=== PATIENT | female | born 1975 | race Asian ===

== ENCOUNTER 2021-04-27 17:00 | Inpatient (IN) | payer OTHER ==
[~2021-04-27] VITALS: Ht 154.9 cm; Wt 113.0 kg
--- NOTE | 2021-04-27 18:10 | RAD ---
Exam: Chest one view INDICATION: Short of air TECHNIQUE: Frontal view of the chest Comparisons: None FINDINGS: The cardiomediastinal silhouette is mildly enlarged. Pulmonary vessels are obscured. Extensive patchy bilateral airspace disease. No pleural effusion. IMPRESSION: Extensive bilateral airspace disease may relate to edema or atypical infectious process. Electronically signed by: Wendy Russo MD (04/27/2021 6:08 PM) [facility]
[2021-04-27] MEDS ORDERED: PIPERACILLIN/TAZOBACTAM 3.375 GM in IV NORMAL SALINE 50ML 50 ML IV ONE (19:00)
[2021-04-27] MEDS ORDERED: DEXAMETHASONE SOD PHOS 20 MG/5 ML VIAL. IV ONE (19:00)
[2021-04-27] MEDS ORDERED: VANCOMYCIN PER PHARMACY MC PRN (19:00)
[2021-04-27] MEDS ORDERED: DOXYCYCLINE HYCLATE 100 MG in IV DEXTROSE 5% 100ML 100 ML IV ONE (19:15)
[2021-04-27] MEDS ORDERED: cefTRIAXone IV Push 1 GM VIAL. IVP ONE (19:15)
[2021-04-27 19:29] LABS: BASO % 1 % (0-3); EOS % 0 % (0-3); HEMATOCRIT 44.4 % (36.0-47.0); HEMOGLOBIN 14.5 g/dL (12.0-15.5); LYMPH # 1.4 x10^3/uL (1.0-4.8); LYMPH % 16 % (24-48); MEAN CORPUSCULAR HEMOGLOBIN 20 pg (25-35); MEAN CORPUSCULAR HGB CONC 33 g/dL (31-37); MEAN CORPUSCULAR VOLUME 60 fL (79-100); MONO # 0.5 x10^3/uL (0.0-1.1); MONO % 6 % (0-9); NEUT # 6.8 x10^3/uL (1.8-7.7); NEUT % 77 % (31-73); PLATELET COUNT 271 x10^3/uL (140-400); RED BLOOD COUNT 7.42 x10^6/uL (3.50-5.40); RED CELL DISTRIBUTION WIDTH 17.6 % (11.5-14.5); WHITE BLOOD COUNT 8.8 x10^3/uL (4.0-11.0)
--- NOTE | 2021-04-27 19:37 | PHYS DOC ---
Past Medical History Past Medical History: Hypertension Past Surgical History: No Surgical History General Adult EDM: Chief Complaint: SHORTNESS OF BREATH HPI: HPI: Patient is a 45 year old female with history of hypertension who presents to the ED today complaining of shortness of breath, dizziness and feeling like she is going to pass out, symptoms began 2 weeks ago after she got stung by bees. Patient reports being vaccinated against COVID-19. Review of Systems: Review of Systems: Constitutional: Denies fever or chills. [] Eyes: Denies change in visual acuity. [] HENT: Denies nasal congestion or sore throat. [] Respiratory: Reports shortness of breath, denies coughing Cardiovascular: Denies chest pain or edema. [] GI: Denies abdominal pain, nausea, vomiting, bloody stools or diarrhea. [] : Denies dysuria. [] Musculoskeletal: Denies back pain or joint pain. [] Integument: Denies rash. [] Psychiatric: Denies depression or anxiety. [] Heart Score: C/O Chest Pain: N/A Risk Factors: Risk Factors: DM, Current or recent (<one month) smoker, HTN, HLP, family history of CAD, obesity. Risk Scores: Score 0 - 3: 2.5% MACE over next 6 weeks - Discharge Home Score 4 - 6: 20.3% MACE over next 6 weeks - Admit for Clinical Observation Score 7 - 10: 72.7% MACE over next 6 weeks - Early Invasive Strategies Current Medications: Current Medications Medications (Trade) Dose Ordered Sig/Rin Start Time Stop Time Status Last Admin Dose Admin Ceftriaxone Sodium (Rocephin) 1 gm 1X ONCE 04/27/21 19:15 04/27/21 19:16 DC Dexamethasone Sodium Phosphate (Decadron) 10 mg 1X ONCE 04/27/21 19:00 04/27/21 19:10 DC Doxycycline Hyclate 100 mg/ Dextrose 100 ml @ 50 mls/hr 1X ONCE 04/27/21 19:15 04/27/21 21:14 Piperacillin Sod/ Tazobactam Sod 3.375 gm/Sodium Chloride 50 ml @ 100 mls/hr 1X ONCE 04/27/21 19:00 04/27/21 19:29 UNV Vancomycin HCl (Vanco Per Pharmacy) 1 each PRN DAILY PRN 04/27/21 19:00 UNV Allergies: Allergies: Allergies Coded Allergies Type Severity Reaction Last Updated Verified No Known Drug Allergies 04/27/21 No Physical Exam: PE: Constitutional: Well developed, well nourished, no acute distress, non-toxic appearance. [] HENT: Normocephalic, atraumatic, bilateral external ears normal, oropharynx moist, no oral exudates, nose normal. [] Eyes: PERRLA, EOMI, conjunctiva normal, no discharge. [] Neck: Normal range of motion, no tenderness, supple, no stridor. [] Cardiovascular:Heart rate regular rhythm Lungs & Thorax: Coarse breath sounds posteriorly Abdomen: Bowel sounds normal, soft, no tenderness, no masses, no pulsatile masses. [] Skin: Warm, dry, no erythema, no rash. [] Back: No tenderness, no CVA tenderness. [] Extremities: No tenderness, no cyanosis, no clubbing, ROM intact, no edema. [] Neurologic: Alert and oriented X 3, normal motor function, normal sensory function, no focal deficits noted. Cranial nerves II through XII intact Psychologic: Affect normal, judgement normal, mood normal. [] Current Patient Data: Labs: Laboratory Tests Test 04/27/21 19:18 White Blood Count 8.8 x10^3/uL (4.0-11.0) Red Blood Count 7.42 x10^6/uL (3.50-5.40) H Hemoglobin 14.5 g/dL (12.0-15.5) Hematocrit 44.4 % (36.0-47.0) Mean Corpuscular Volume 60 fL (79-100) L Mean Corpuscular Hemoglobin 20 pg (25-35) L Mean Corpuscular Hemoglobin Concent 33 g/dL (31-37) Red Cell Distribution Width 17.6 % (11.5-14.5) H Platelet Count 271 x10^3/uL (140-400) Neutrophils (%) (Auto) 77 % (31-73) H Lymphocytes (%) (Auto) 16 % (24-48) L Monocytes (%) (Auto) 6 % (0-9) Eosinophils (%) (Auto) 0 % (0-3) Basophils (%) (Auto) 1 % (0-3) Neutrophils # (Auto) 6.8 x10^3/uL (1.8-7.7) Lymphocytes # (Auto) 1.4 x10^3/uL (1.0-4.8) Monocytes # (Auto) 0.5 x10^3/uL (0.0-1.1) Eosinophils # (Auto) 0.0 x10^3/uL (0.0-0.7) Basophils # (Auto) 0.0 x10^3/uL (0.0-0.2) Platelet Estimate Pending Laboratory Tests 04/27/21 19:18 Vital Signs: Vital Signs Date Time Temp Pulse Resp B/P (MAP) Pulse Ox O2 Delivery O2 Flow Rate FiO2 04/27/21 18:39 92 22 142/65 (90) Room Air 04/27/21 17:24 98.5 98.5 EKG: EKG: [] Radiology/Procedures: Radiology/Procedures: []PROCEDURE: CHEST AP ONLY Exam: Chest one view INDICATION: Short of air TECHNIQUE: Frontal view of the chest Comparisons: None FINDINGS: The cardiomediastinal silhouette is mildly enlarged. Pulmonary vessels are obscured. Extensive patchy bilateral airspace disease. No pleural effusion. IMPRESSION: Extensive bilateral airspace disease may relate to edema or atypical infectious process. Electronically signed by: Wendy Darby MD (04/27/2021 6:08 PM) [facility] DICTATED and SIGNED BY: WENDY DARBY MD DATE: 04/27/21 [id number] 0 Course & Med Decision Making: Course & Med Decision Making Pertinent Labs and Imaging studies reviewed. (See chart for details) This is a 45-year-old female patient presented to the ED today complaining of dizziness, near syncope, and shortness of breath, symptoms of been going on for 2 weeks after being bit by stung by bees. Patient's airways open. Patient's O2 sats have been hard to get him on arrival to the ED we could not get any oxygen saturation reading. Eventually were able to obtain O2 saturations, they were running in the 50s on room air. Patient was moved to room 4. Was put on high flow oxygen. O2 sats the highest we have had is in the 70s. Patient herself is not struggling to breathe. Patient is afebrile. Heart rate in the 80s. Blood pressure 148/70 was notified and she assessed patient. Respiratory in the room drawing ABGs,ABG noted for PO2 of 44,patient was put on vapotherm currently 85% and non re-breather Chest x-ray interpreted by radiologist was negative extensive bilateral airspace disease may relate to edema or atypical infectious process. CBC with a normal WBC, normal hemoglobin and hematocrit. Normal platelet Lactic is normal. CMP with potassium of 2.4, patient was given oral as well as IV potassium replacement. EKG is still pending. Creatinine 1.6, BUN of 32. Spoke with Dr. Sims who accepted patient for admission. Consult placed for food tester. Negative rapid Covid test, negative influenza A and B. Dr. Sims requested we hold off on intubating this patient as long as we can. Dragon Disclaimer: Dragon Disclaimer: This electronic medical record was generated, in whole or in part, using a voice recognition dictation system. Departure Departure Impression: Primary Impression: Acute respiratory failure Qualified Codes: J96.01 - Acute respiratory failure with hypoxia Additional Impressions: Bee sting Qualified Codes: T63.441A - Toxic effect of venom of bees, accidental (unintentional), initial encounter Acute renal failure Qualified Codes: N17.9 - Acute kidney failure, unspecified Hypokalemia Disposition: ADMITTED INPATIENT Condition: STABLE Referrals: TATI RIOS MD (PCP) RAFAEL MONTELONGO LEAD DATA ARCHITECT Apr 27, 2021 19:37
[2021-04-27 20:08] LABS: INFLUENZA A PATIENT NEGATIVE (NEGATIVE); INFLUENZA B PATIENT NEGATIVE (NEGATIVE)
[2021-04-27 20:09] LABS: MICROCYTOSIS MARKED; PLT ESTIMATE ADEQUATE (ADEQUATE); POLYCHROMASIA SLIGHT
[2021-04-27 20:10] LABS: ANISOCYTOSIS SLIGHT; TARGET CELLS OCC
[2021-04-27 20:14] LABS: BASE EXCESS ABG 9 mmol/L (-3-3); HCO3 ABG 34 mmol/L (21-28); PCO2 ABG 45 mmHg (35-46); SAT O2 ABG 81 % (92-99)
[2021-04-27 20:15] LABS: FIO2 ABG 100; PO2 ABG 44 mmHg (75-108)
[2021-04-27 20:15] LABS: HYPOCHROMIA SLIGHT
[2021-04-27] MEDS ORDERED: STERILE WATER for RESP 1,000 ML BAG. INH PRN (20:15)
[2021-04-27 20:28] LABS: ALBUMIN 2.4 g/dL (3.4-5.0); ALBUMIN/GLOBULIN RATIO 0.5 (1.0-1.7); CALCIUM 8.7 mg/dL (8.5-10.1); CREATININE 1.6 mg/dL (0.6-1.0); GFR 34.6; TOTAL BILIRUBIN 0.3 mg/dL (0.2-1.0); TOTAL PROTEIN 7.3 g/dL (6.4-8.2)
[2021-04-27] MEDS ORDERED: PIPERACILLIN/TAZOBACTAM 4.5 GM in IV NORMAL SALINE 100ML 100 ML IV ONE (20:30)
[2021-04-27 20:31] LABS: POTASSIUM 2.4 mmol/L (3.5-5.1)
[2021-04-27] MEDS ORDERED: POTASSIUM BICARB 20 MEQ EFFERVESCENT TABLET. PO ONE (21:00)
[2021-04-27] MEDS ORDERED: ONDANSETRON PF 4 MG/2 ML VIAL. IVP PRN (21:00)
[2021-04-27] MEDS ORDERED: MORPHINE SULFATE 2 MG/ML INJ. IVP PRN (21:00)
[2021-04-27] MEDS ORDERED: ACETAMINOPHEN 325 MG TABLET. PO PRN (21:00)
[2021-04-27] MEDS ORDERED: POTASSIUM CHLORIDE 20MEQ 100 ML IV ONE (21:00)
--- NOTE | 2021-04-27 22:42 | EKG ---
[facility] [address] [place] [address] Test Date: 2021-04-27 Test Time: 21:31:59 Pat Name: ITZEL WALLACE Department: Room: Gender: F Rn Home Care: : 1975 Requested By: RAFAEL MONTELONGO Order Number: [id number] Reading MD: Fabian Vann MD Measurements Intervals [place] Rate: 81 P: 30 [place]: 146 QRS: 14 QRSD: 90 T: 11 QT: 420 QTc: 488 Interpretive Statements SINUS RHYTHM Electronically Signed On 04-28-2021 8:51:13 CDT by Fabian Vann MD
[2021-04-28] VITALS (8 sets, daily range): BP systolic 107–123; BP diastolic 61–72
[2021-04-28 04:03] LABS: BASO % 0 % (0-3); EOS % 0 % (0-3); HEMATOCRIT 44.9 % (36.0-47.0); HEMOGLOBIN 14.5 g/dL (12.0-15.5); LYMPH % 15 % (24-48); MEAN CORPUSCULAR HEMOGLOBIN 19 pg (25-35); MEAN CORPUSCULAR HGB CONC 32 g/dL (31-37); MEAN CORPUSCULAR VOLUME 60 fL (79-100); MONO # 0.2 x10^3/uL (0.0-1.1); MONO % 3 % (0-9); NEUT # 5.6 x10^3/uL (1.8-7.7); NEUT % 82 % (31-73); PLATELET COUNT 278 x10^3/uL (140-400); RED BLOOD COUNT 7.49 x10^6/uL (3.50-5.40); RED CELL DISTRIBUTION WIDTH 16.9 % (11.5-14.5); WHITE BLOOD COUNT 6.9 x10^3/uL (4.0-11.0)
[2021-04-28 07:00] LABS: ALBUMIN 2.5 g/dL (3.4-5.0); ALBUMIN/GLOBULIN RATIO 0.6 (1.0-1.7); CALCIUM 8.3 mg/dL (8.5-10.1); CREATININE 1.4 mg/dL (0.6-1.0); GFR 40.3; POTASSIUM 3.4 mmol/L (3.5-5.1); TOTAL BILIRUBIN 0.3 mg/dL (0.2-1.0); TOTAL PROTEIN 6.9 g/dL (6.4-8.2)
[2021-04-28 08:19] LABS: BASE EXCESS ABG 9 mmol/L (-3-3); HCO3 ABG 33 mmol/L (21-28); PCO2 ABG 45 mmHg (35-46); PO2 ABG 52 mmHg (75-108); SAT O2 ABG 87 % (92-99)
[2021-04-28 08:27] LABS: FIO2 ABG 100
--- NOTE | 2021-04-28 08:43 | PDOC1 ---
History and Physical Date of Service: DOS: DATE: 04/28/21 TIME: 08:43 Chief Complaint: Chief Complain: Shortness of breath History of Present Illness: HPI: Patient is a 45-year-old female with past medical history of hypertension and morbid obesity who presents with shortness of breath for the past 2 weeks that has gotten worse in the past few days. Patient says she got stung by bees 2 weeks ago she did have some dizziness today and felt like she was going to pass out. Patient states she is vaccinated for Covid. Denies any fevers, chest pain, abdominal pain, diarrhea, sick contacts, dysuria or hematuria. Past Medical/Surgical History: PMH/PSH: Past Medical History: Hypertension Past Surgical History: No Surgical History Allergies: Allergies: Coded Allergies: No Known Drug Allergies (Unverified , 04/27/21) Family History: Family History: Reviewed with no relevant findings Social History: Social History: Denies any alcohol, drug or tobacco abuse. Current Medications: Current Medications Current Medications Dexamethasone Sodium Phosphate (Decadron) 10 mg 1X ONCE IV Last administered on 04/27/21at 20:04; Start 04/27/21 at 19:00; Stop 04/27/21 at 19:10; Status DC Piperacillin Sod/ Tazobactam Sod 3.375 gm/Sodium Chloride 50 ml @ 100 mls/hr 1X ONCE IV ; Start 04/27/21 at 19:00; Stop 04/27/21 at 19:29; Status UNV Vancomycin HCl (Vanco Per Pharmacy) 1 each PRN DAILY PRN MC SEE COMMENTS; Start 04/27/21 at 19:00; Status UNV Ceftriaxone Sodium (Rocephin) 1 gm 1X ONCE IVP Last administered on 04/27/21at 20:04; Start 04/27/21 at 19:15; Stop 04/27/21 at 19:16; Status DC Doxycycline Hyclate 100 mg/ Dextrose 100 ml @ 50 mls/hr 1X ONCE IV Last administered on 04/27/21at 20:00; Start 04/27/21 at 19:15; Stop 04/27/21 at 21:14; Status DC Sterile Water (WATER for RESP) 1,000 ml CONT PRN INH VIA VAPOTHERM DEVICE; Start 04/27/21 at 20:15 Piperacillin Sod/ Tazobactam Sod 4.5 gm/Sodium Chloride 100 ml @ 200 mls/hr 1X ONCE IV Last administered on 04/27/21at 20:57; Start 04/27/21 at 20:30; Stop 04/27/21 at 20:59; Status DC Potassium Bicarbonate (Potassium Effervescent Tablet) 40 meq 1X ONCE PO Last administered on 04/27/21at 20:56; Start 04/27/21 at 21:00; Stop 04/27/21 at 21:01; Status DC Potassium Chloride/Water 100 ml @ 50 mls/hr 1X ONCE IV Last administered on 04/27/21at 20:56; Start 04/27/21 at 21:00; Stop 04/27/21 at 22:59; Status DC Ondansetron HCl (Zofran) 4 mg PRN Q8HRS PRN IVP NAUSEA/VOMITING; Start 04/27/21 at 21:00; Stop 04/28/21 at 20:59 Morphine Sulfate (Morphine Sulfate) 2 mg PRN Q2HR PRN IVP PAIN; Start 04/27/21 at 21:00; Stop 04/28/21 at 20:59 Acetaminophen (Tylenol) 650 mg PRN Q4HRS PRN PO FEVER > 100.3'F; Start 04/27/21 at 21:00; Stop 04/28/21 at 20:59 ROS: Review of Systems Review of System REVIEW OF SYSTEMS: GENERAL: Positive for dizziness and weakness SKIN: No bruising, hair changes or rashes. EYES: No blurred, double or loss of vision. NOSE AND THROAT: No history of nosebleeds, hoarseness or sore throat. HEART: No history of palpitations, chest pain or shortness of breath on exertion. LUNGS: Shortness of breath GASTROINTESTINAL: Denies changes in appetite, nausea, vomiting, diarrhea or constipation. GENITOURINARY: No history of frequency, urgency, hesitancy or nocturia. NEUROLOGIC: Denies history of numbness, tingling, or tremor. PSYCHIATRIC: No history of panic, anxiety or depression. ENDOCRINE: No history of heat or cold intolerance, polyuria or polydipsia. EXTREMITIES: Denies joint pain, pain on walking or stiffness. Physical Exam: Vital Signs: Vital Signs Date Time Temp Pulse Resp B/P (MAP) Pulse Ox O2 Delivery O2 Flow Rate FiO2 04/28/21 08:15 90 BiPAP/CPAP 04/28/21 06:45 72 19 114/66 (82) 04/27/21 21:59 15.0 04/27/21 17:24 98.5 98.5 Physcial Exam: General: Well developed, well nourished, no acute distress, well appearing HEENT: Pupils equally round and reactive to light, EOMI, no discharge, normal conjunctiva Neck: Supple, no nuchal rigidity, no JVD, trachea midline, no tenderness Cardiac: RRR, no murmurs, no gallops, no rubs Chest/Lungs: Diminished throughout all lung [place] no wheeze, no rhonchi, no crackles Abdomen: Obese, soft, non-distended, no guarding, no peritoneal signs, non- tender Back: No tenderness Extremities: no edema, pulses intact, non-tender,capillary refill <3 sec bilateral upper and lower extremities, Neuro: Alert and oriented x 4, no focal deficits, normal speech Labs: Labs: Laboratory Tests Test 04/27/21 19:18 04/27/21 19:35 04/27/21 20:00 04/27/21 20:10 White Blood Count 8.8 x10^3/uL (4.0-11.0) Red Blood Count 7.42 x10^6/uL (3.50-5.40) Hemoglobin 14.5 g/dL (12.0-15.5) Hematocrit 44.4 % (36.0-47.0) Mean Corpuscular Volume 60 fL (79-100) Mean Corpuscular Hemoglobin 20 pg (25-35) Mean Corpuscular Hemoglobin Concent 33 g/dL (31-37) Red Cell Distribution Width 17.6 % (11.5-14.5) Platelet Count 271 x10^3/uL (140-400) Neutrophils (%) (Auto) 77 % (31-73) Lymphocytes (%) (Auto) 16 % (24-48) Monocytes (%) (Auto) 6 % (0-9) Eosinophils (%) (Auto) 0 % (0-3) Basophils (%) (Auto) 1 % (0-3) Neutrophils # (Auto) 6.8 x10^3/uL (1.8-7.7) Lymphocytes # (Auto) 1.4 x10^3/uL (1.0-4.8) Monocytes # (Auto) 0.5 x10^3/uL (0.0-1.1) Eosinophils # (Auto) 0.0 x10^3/uL (0.0-0.7) Basophils # (Auto) 0.0 x10^3/uL (0.0-0.2) Platelet Estimate Adequate (ADEQUATE) Polychromasia Slight Hypochromasia Slight Anisocytosis Slight Microcytosis Marked Target Cells Occ Lactic Acid Level 1.7 mmol/L (0.4-2.0) Influenza Type A Antigen Negative (NEGATIVE) Influenza Type B Antigen Negative (NEGATIVE) SARS-CoV-2 Antigen (Rapid) Negative (NEGATIVE) Sodium Level 135 mmol/L (136-145) Potassium Level 2.4 mmol/L (3.5-5.1) Chloride Level 93 mmol/L (98-107) Carbon Dioxide Level 34 mmol/L (21-32) Anion Gap 8 (6-14) Blood Urea Nitrogen 32 mg/dL (7-20) Creatinine 1.6 mg/dL (0.6-1.0) Estimated GFR (Cockcroft-Gault) 34.6 BUN/Creatinine Ratio 20 (6-20) Glucose Level 118 mg/dL (70-99) Calcium Level 8.7 mg/dL (8.5-10.1) Total Bilirubin 0.3 mg/dL (0.2-1.0) Aspartate Amino Transf (AST/SGOT) 31 U/L (15-37) Alanine Aminotransferase (ALT/SGPT) 27 U/L (14-59) Alkaline Phosphatase 72 U/L (46-116) Troponin I Quantitative < 0.017 ng/mL (0.000-0.055) MH-Vqr-V-Type Natriuretic Peptide 418 pg/mL (0-124) Total Protein 7.3 g/dL (6.4-8.2) Albumin 2.4 g/dL (3.4-5.0) Albumin/Globulin Ratio 0.5 (1.0-1.7) Procalcitonin < 0.10 ng/mL (0.00-0.10) O2 Saturation 81 % (92-99) Arterial Blood pH 7.49 (7.35-7.45) Arterial Blood pCO2 at Patient Temp 45 mmHg (35-46) Arterial Blood pO2 at Patient Temp 44 mmHg (75-108) Arterial Blood HCO3 34 mmol/L (21-28) Arterial Blood Base Excess 9 mmol/L (-3-3) FiO2 100 Test 04/27/21 23:30 04/28/21 04:00 04/28/21 07:28 Troponin I Quantitative < 0.017 ng/mL (0.000-0.055) < 0.017 ng/mL (0.000-0.055) White Blood Count 6.9 x10^3/uL (4.0-11.0) Red Blood Count 7.49 x10^6/uL (3.50-5.40) Hemoglobin 14.5 g/dL (12.0-15.5) Hematocrit 44.9 % (36.0-47.0) Mean Corpuscular Volume 60 fL (79-100) Mean Corpuscular Hemoglobin 19 pg (25-35) Mean Corpuscular Hemoglobin Concent 32 g/dL (31-37) Red Cell Distribution Width 16.9 % (11.5-14.5) Platelet Count 278 x10^3/uL (140-400) Neutrophils (%) (Auto) 82 % (31-73) Lymphocytes (%) (Auto) 15 % (24-48) Monocytes (%) (Auto) 3 % (0-9) Eosinophils (%) (Auto) 0 % (0-3) Basophils (%) (Auto) 0 % (0-3) Neutrophils # (Auto) 5.6 x10^3/uL (1.8-7.7) Lymphocytes # (Auto) 1.0 x10^3/uL (1.0-4.8) Monocytes # (Auto) 0.2 x10^3/uL (0.0-1.1) Eosinophils # (Auto) 0.0 x10^3/uL (0.0-0.7) Basophils # (Auto) 0.0 x10^3/uL (0.0-0.2) Sodium Level 137 mmol/L (136-145) Potassium Level 3.4 mmol/L (3.5-5.1) Chloride Level 94 mmol/L (98-107) Carbon Dioxide Level 34 mmol/L (21-32) Anion Gap 9 (6-14) Blood Urea Nitrogen 34 mg/dL (7-20) Creatinine 1.4 mg/dL (0.6-1.0) Estimated GFR (Cockcroft-Gault) 40.3 BUN/Creatinine Ratio 24 (6-20) Glucose Level 163 mg/dL (70-99) Calcium Level 8.3 mg/dL (8.5-10.1) Total Bilirubin 0.3 mg/dL (0.2-1.0) Aspartate Amino Transf (AST/SGOT) 31 U/L (15-37) Alanine Aminotransferase (ALT/SGPT) 29 U/L (14-59) Alkaline Phosphatase 74 U/L (46-116) Total Protein 6.9 g/dL (6.4-8.2) Albumin 2.5 g/dL (3.4-5.0) Albumin/Globulin Ratio 0.6 (1.0-1.7) O2 Saturation 87 % (92-99) Arterial Blood pH 7.49 (7.35-7.45) Arterial Blood pCO2 at Patient Temp 45 mmHg (35-46) Arterial Blood pO2 at Patient Temp 52 mmHg (75-108) Arterial Blood HCO3 33 mmol/L (21-28) Arterial Blood Base Excess 9 mmol/L (-3-3) FiO2 100 Laboratory Tests Test 04/27/21 19:18 04/27/21 19:35 04/27/21 20:00 04/27/21 20:10 White Blood Count 8.8 x10^3/uL (4.0-11.0) Red Blood Count 7.42 x10^6/uL (3.50-5.40) Hemoglobin 14.5 g/dL (12.0-15.5) Hematocrit 44.4 % (36.0-47.0) Mean Corpuscular Volume 60 fL (79-100) Mean Corpuscular Hemoglobin 20 pg (25-35) Mean Corpuscular Hemoglobin Concent 33 g/dL (31-37) Red Cell Distribution Width 17.6 % (11.5-14.5) Platelet Count 271 x10^3/uL (140-400) Neutrophils (%) (Auto) 77 % (31-73) Lymphocytes (%) (Auto) 16 % (24-48) Monocytes (%) (Auto) 6 % (0-9) Eosinophils (%) (Auto) 0 % (0-3) Basophils (%) (Auto) 1 % (0-3) Neutrophils # (Auto) 6.8 x10^3/uL (1.8-7.7) Lymphocytes # (Auto) 1.4 x10^3/uL (1.0-4.8) Monocytes # (Auto) 0.5 x10^3/uL (0.0-1.1) Eosinophils # (Auto) 0.0 x10^3/uL (0.0-0.7) Basophils # (Auto) 0.0 x10^3/uL (0.0-0.2) Platelet Estimate Adequate (ADEQUATE) Polychromasia Slight Hypochromasia Slight Anisocytosis Slight Microcytosis Marked Target Cells Occ Lactic Acid Level 1.7 mmol/L (0.4-2.0) Influenza Type A Antigen Negative (NEGATIVE) Influenza Type B Antigen Negative (NEGATIVE) SARS-CoV-2 Antigen (Rapid) Negative (NEGATIVE) Sodium Level 135 mmol/L (136-145) Potassium Level 2.4 mmol/L (3.5-5.1) Chloride Level 93 mmol/L (98-107) Carbon Dioxide Level 34 mmol/L (21-32) Anion Gap 8 (6-14) Blood Urea Nitrogen 32 mg/dL (7-20) Creatinine 1.6 mg/dL (0.6-1.0) Estimated GFR (Cockcroft-Gault) 34.6 BUN/Creatinine Ratio 20 (6-20) Glucose Level 118 mg/dL (70-99) Calcium Level 8.7 mg/dL (8.5-10.1) Total Bilirubin 0.3 mg/dL (0.2-1.0) Aspartate Amino Transf (AST/SGOT) 31 U/L (15-37) Alanine Aminotransferase (ALT/SGPT) 27 U/L (14-59) Alkaline Phosphatase 72 U/L (46-116) Troponin I Quantitative < 0.017 ng/mL (0.000-0.055) EM-Ezj-Y-Type Natriuretic Peptide 418 pg/mL (0-124) Total Protein 7.3 g/dL (6.4-8.2) Albumin 2.4 g/dL (3.4-5.0) Albumin/Globulin Ratio 0.5 (1.0-1.7) Procalcitonin < 0.10 ng/mL (0.00-0.10) O2 Saturation 81 % (92-99) Arterial Blood pH 7.49 (7.35-7.45) Arterial Blood pCO2 at Patient Temp 45 mmHg (35-46) Arterial Blood pO2 at Patient Temp 44 mmHg (75-108) Arterial Blood HCO3 34 mmol/L (21-28) Arterial Blood Base Excess 9 mmol/L (-3-3) FiO2 100 Test 04/27/21 23:30 04/28/21 04:00 04/28/21 07:28 Troponin I Quantitative < 0.017 ng/mL (0.000-0.055) < 0.017 ng/mL (0.000-0.055) White Blood Count 6.9 x10^3/uL (4.0-11.0) Red Blood Count 7.49 x10^6/uL (3.50-5.40) Hemoglobin 14.5 g/dL (12.0-15.5) Hematocrit 44.9 % (36.0-47.0) Mean Corpuscular Volume 60 fL (79-100) Mean Corpuscular Hemoglobin 19 pg (25-35) Mean Corpuscular Hemoglobin Concent 32 g/dL (31-37) Red Cell Distribution Width 16.9 % (11.5-14.5) Platelet Count 278 x10^3/uL (140-400) Neutrophils (%) (Auto) 82 % (31-73) Lymphocytes (%) (Auto) 15 % (24-48) Monocytes (%) (Auto) 3 % (0-9) Eosinophils (%) (Auto) 0 % (0-3) Basophils (%) (Auto) 0 % (0-3) Neutrophils # (Auto) 5.6 x10^3/uL (1.8-7.7) Lymphocytes # (Auto) 1.0 x10^3/uL (1.0-4.8) Monocytes # (Auto) 0.2 x10^3/uL (0.0-1.1) Eosinophils # (Auto) 0.0 x10^3/uL (0.0-0.7) Basophils # (Auto) 0.0 x10^3/uL (0.0-0.2) Sodium Level 137 mmol/L (136-145) Potassium Level 3.4 mmol/L (3.5-5.1) Chloride Level 94 mmol/L (98-107) Carbon Dioxide Level 34 mmol/L (21-32) Anion Gap 9 (6-14) Blood Urea Nitrogen 34 mg/dL (7-20) Creatinine 1.4 mg/dL (0.6-1.0) Estimated GFR (Cockcroft-Gault) 40.3 BUN/Creatinine Ratio 24 (6-20) Glucose Level 163 mg/dL (70-99) Calcium Level 8.3 mg/dL (8.5-10.1) Total Bilirubin 0.3 mg/dL (0.2-1.0) Aspartate Amino Transf (AST/SGOT) 31 U/L (15-37) Alanine Aminotransferase (ALT/SGPT) 29 U/L (14-59) Alkaline Phosphatase 74 U/L (46-116) Total Protein 6.9 g/dL (6.4-8.2) Albumin 2.5 g/dL (3.4-5.0) Albumin/Globulin Ratio 0.6 (1.0-1.7) O2 Saturation 87 % (92-99) Arterial Blood pH 7.49 (7.35-7.45) Arterial Blood pCO2 at Patient Temp 45 mmHg (35-46) Arterial Blood pO2 at Patient Temp 52 mmHg (75-108) Arterial Blood HCO3 33 mmol/L (21-28) Arterial Blood Base Excess 9 mmol/L (-3-3) FiO2 100 Assessment/Plan Assessment/Plan Acute hypoxic respiratory failure requiring BiPAP COVID-19 pneumonia Acute electrolyte derangementhyponatremia, hypochloremia, severe hypokalemia MAYRA due to vasomotor nephropathy Severe protein malnutrition Morbid obesity History of hypertension Admit to medicine for further management Pulmonology consult Continue IV thiamine and vitamin C IV Solu-Medrol every 8 hours IV Remdesivir if patient requires O2 supplementation beyond there baseline Pending ferritin, LDH, CRP, D-dimer labs Titrate O2 supplementation to maintain O2 saturation greater than 92% Empiric IV antibiotics if patient has clinical presentation for bacterial pneumonia Lovenox for DVT prophylaxis Protonix GI prophylaxis ADA diet Full code Discussed with RN and SW Disposition inpatient management as above Surrogate decision maker is the undesignated at this time Justifications for Admission Other Justification ASHLEY DAVIS MD Apr 28, 2021 08:43
--- NOTE | 2021-04-28 11:26 | PDOC ---
PULMONARY PROGRESS NOTES DATE: 04/28/21 TIME: 11:24 Vitals Vital Signs Date Time Temp Pulse Resp B/P (MAP) Pulse Ox O2 Delivery O2 Flow Rate FiO2 04/28/21 10:14 70 26 109/63 (78) 89 BiPAP/CPAP 04/27/21 21:59 15.0 04/27/21 17:24 98.5 98.5 Labs Laboratory Tests Test 04/27/21 19:18 04/27/21 19:35 04/27/21 20:00 04/27/21 20:10 White Blood Count 8.8 x10^3/uL (4.0-11.0) Red Blood Count 7.42 x10^6/uL (3.50-5.40) Hemoglobin 14.5 g/dL (12.0-15.5) Hematocrit 44.4 % (36.0-47.0) Mean Corpuscular Volume 60 fL (79-100) Mean Corpuscular Hemoglobin 20 pg (25-35) Mean Corpuscular Hemoglobin Concent 33 g/dL (31-37) Red Cell Distribution Width 17.6 % (11.5-14.5) Platelet Count 271 x10^3/uL (140-400) Neutrophils (%) (Auto) 77 % (31-73) Lymphocytes (%) (Auto) 16 % (24-48) Monocytes (%) (Auto) 6 % (0-9) Eosinophils (%) (Auto) 0 % (0-3) Basophils (%) (Auto) 1 % (0-3) Neutrophils # (Auto) 6.8 x10^3/uL (1.8-7.7) Lymphocytes # (Auto) 1.4 x10^3/uL (1.0-4.8) Monocytes # (Auto) 0.5 x10^3/uL (0.0-1.1) Eosinophils # (Auto) 0.0 x10^3/uL (0.0-0.7) Basophils # (Auto) 0.0 x10^3/uL (0.0-0.2) Platelet Estimate Adequate (ADEQUATE) Polychromasia Slight Hypochromasia Slight Anisocytosis Slight Microcytosis Marked Target Cells Occ Lactic Acid Level 1.7 mmol/L (0.4-2.0) Influenza Type A Antigen Negative (NEGATIVE) Influenza Type B Antigen Negative (NEGATIVE) SARS-CoV-2 RNA (NANDINI) Positive (Negative) SARS-CoV-2 Antigen (Rapid) Negative (NEGATIVE) Sodium Level 135 mmol/L (136-145) Potassium Level 2.4 mmol/L (3.5-5.1) Chloride Level 93 mmol/L (98-107) Carbon Dioxide Level 34 mmol/L (21-32) Anion Gap 8 (6-14) Blood Urea Nitrogen 32 mg/dL (7-20) Creatinine 1.6 mg/dL (0.6-1.0) Estimated GFR (Cockcroft-Gault) 34.6 BUN/Creatinine Ratio 20 (6-20) Glucose Level 118 mg/dL (70-99) Calcium Level 8.7 mg/dL (8.5-10.1) Total Bilirubin 0.3 mg/dL (0.2-1.0) Aspartate Amino Transf (AST/SGOT) 31 U/L (15-37) Alanine Aminotransferase (ALT/SGPT) 27 U/L (14-59) Alkaline Phosphatase 72 U/L (46-116) Troponin I Quantitative < 0.017 ng/mL (0.000-0.055) YY-Eiq-G-Type Natriuretic Peptide 418 pg/mL (0-124) Total Protein 7.3 g/dL (6.4-8.2) Albumin 2.4 g/dL (3.4-5.0) Albumin/Globulin Ratio 0.5 (1.0-1.7) Procalcitonin < 0.10 ng/mL (0.00-0.10) O2 Saturation 81 % (92-99) Arterial Blood pH 7.49 (7.35-7.45) Arterial Blood pCO2 at Patient Temp 45 mmHg (35-46) Arterial Blood pO2 at Patient Temp 44 mmHg (75-108) Arterial Blood HCO3 34 mmol/L (21-28) Arterial Blood Base Excess 9 mmol/L (-3-3) FiO2 100 Test 04/27/21 23:30 04/28/21 04:00 04/28/21 07:28 Troponin I Quantitative < 0.017 ng/mL (0.000-0.055) < 0.017 ng/mL (0.000-0.055) White Blood Count 6.9 x10^3/uL (4.0-11.0) Red Blood Count 7.49 x10^6/uL (3.50-5.40) Hemoglobin 14.5 g/dL (12.0-15.5) Hematocrit 44.9 % (36.0-47.0) Mean Corpuscular Volume 60 fL (79-100) Mean Corpuscular Hemoglobin 19 pg (25-35) Mean Corpuscular Hemoglobin Concent 32 g/dL (31-37) Red Cell Distribution Width 16.9 % (11.5-14.5) Platelet Count 278 x10^3/uL (140-400) Neutrophils (%) (Auto) 82 % (31-73) Lymphocytes (%) (Auto) 15 % (24-48) Monocytes (%) (Auto) 3 % (0-9) Eosinophils (%) (Auto) 0 % (0-3) Basophils (%) (Auto) 0 % (0-3) Neutrophils # (Auto) 5.6 x10^3/uL (1.8-7.7) Lymphocytes # (Auto) 1.0 x10^3/uL (1.0-4.8) Monocytes # (Auto) 0.2 x10^3/uL (0.0-1.1) Eosinophils # (Auto) 0.0 x10^3/uL (0.0-0.7) Basophils # (Auto) 0.0 x10^3/uL (0.0-0.2) Sodium Level 137 mmol/L (136-145) Potassium Level 3.4 mmol/L (3.5-5.1) Chloride Level 94 mmol/L (98-107) Carbon Dioxide Level 34 mmol/L (21-32) Anion Gap 9 (6-14) Blood Urea Nitrogen 34 mg/dL (7-20) Creatinine 1.4 mg/dL (0.6-1.0) Estimated GFR (Cockcroft-Gault) 40.3 BUN/Creatinine Ratio 24 (6-20) Glucose Level 163 mg/dL (70-99) Calcium Level 8.3 mg/dL (8.5-10.1) Total Bilirubin 0.3 mg/dL (0.2-1.0) Aspartate Amino Transf (AST/SGOT) 31 U/L (15-37) Alanine Aminotransferase (ALT/SGPT) 29 U/L (14-59) Alkaline Phosphatase 74 U/L (46-116) Total Protein 6.9 g/dL (6.4-8.2) Albumin 2.5 g/dL (3.4-5.0) Albumin/Globulin Ratio 0.6 (1.0-1.7) O2 Saturation 87 % (92-99) Arterial Blood pH 7.49 (7.35-7.45) Arterial Blood pCO2 at Patient Temp 45 mmHg (35-46) Arterial Blood pO2 at Patient Temp 52 mmHg (75-108) Arterial Blood HCO3 33 mmol/L (21-28) Arterial Blood Base Excess 9 mmol/L (-3-3) FiO2 100 Laboratory Tests Test 04/27/21 19:18 04/27/21 19:35 04/27/21 20:00 04/27/21 20:10 White Blood Count 8.8 x10^3/uL (4.0-11.0) Red Blood Count 7.42 x10^6/uL (3.50-5.40) Hemoglobin 14.5 g/dL (12.0-15.5) Hematocrit 44.4 % (36.0-47.0) Mean Corpuscular Volume 60 fL (79-100) Mean Corpuscular Hemoglobin 20 pg (25-35) Mean Corpuscular Hemoglobin Concent 33 g/dL (31-37) Red Cell Distribution Width 17.6 % (11.5-14.5) Platelet Count 271 x10^3/uL (140-400) Neutrophils (%) (Auto) 77 % (31-73) Lymphocytes (%) (Auto) 16 % (24-48) Monocytes (%) (Auto) 6 % (0-9) Eosinophils (%) (Auto) 0 % (0-3) Basophils (%) (Auto) 1 % (0-3) Neutrophils # (Auto) 6.8 x10^3/uL (1.8-7.7) Lymphocytes # (Auto) 1.4 x10^3/uL (1.0-4.8) Monocytes # (Auto) 0.5 x10^3/uL (0.0-1.1) Eosinophils # (Auto) 0.0 x10^3/uL (0.0-0.7) Basophils # (Auto) 0.0 x10^3/uL (0.0-0.2) Platelet Estimate Adequate (ADEQUATE) Polychromasia Slight Hypochromasia Slight Anisocytosis Slight Microcytosis Marked Target Cells Occ Lactic Acid Level 1.7 mmol/L (0.4-2.0) Influenza Type A Antigen Negative (NEGATIVE) Influenza Type B Antigen Negative (NEGATIVE) SARS-CoV-2 RNA (NANDINI) Positive (Negative) SARS-CoV-2 Antigen (Rapid) Negative (NEGATIVE) Sodium Level 135 mmol/L (136-145) Potassium Level 2.4 mmol/L (3.5-5.1) Chloride Level 93 mmol/L (98-107) Carbon Dioxide Level 34 mmol/L (21-32) Anion Gap 8 (6-14) Blood Urea Nitrogen 32 mg/dL (7-20) Creatinine 1.6 mg/dL (0.6-1.0) Estimated GFR (Cockcroft-Gault) 34.6 BUN/Creatinine Ratio 20 (6-20) Glucose Level 118 mg/dL (70-99) Calcium Level 8.7 mg/dL (8.5-10.1) Total Bilirubin 0.3 mg/dL (0.2-1.0) Aspartate Amino Transf (AST/SGOT) 31 U/L (15-37) Alanine Aminotransferase (ALT/SGPT) 27 U/L (14-59) Alkaline Phosphatase 72 U/L (46-116) Troponin I Quantitative < 0.017 ng/mL (0.000-0.055) RF-Wdr-O-Type Natriuretic Peptide 418 pg/mL (0-124) Total Protein 7.3 g/dL (6.4-8.2) Albumin 2.4 g/dL (3.4-5.0) Albumin/Globulin Ratio 0.5 (1.0-1.7) Procalcitonin < 0.10 ng/mL (0.00-0.10) O2 Saturation 81 % (92-99) Arterial Blood pH 7.49 (7.35-7.45) Arterial Blood pCO2 at Patient Temp 45 mmHg (35-46) Arterial Blood pO2 at Patient Temp 44 mmHg (75-108) Arterial Blood HCO3 34 mmol/L (21-28) Arterial Blood Base Excess 9 mmol/L (-3-3) FiO2 100 Test 04/27/21 23:30 04/28/21 04:00 04/28/21 07:28 Troponin I Quantitative < 0.017 ng/mL (0.000-0.055) < 0.017 ng/mL (0.000-0.055) White Blood Count 6.9 x10^3/uL (4.0-11.0) Red Blood Count 7.49 x10^6/uL (3.50-5.40) Hemoglobin 14.5 g/dL (12.0-15.5) Hematocrit 44.9 % (36.0-47.0) Mean Corpuscular Volume 60 fL (79-100) Mean Corpuscular Hemoglobin 19 pg (25-35) Mean Corpuscular Hemoglobin Concent 32 g/dL (31-37) Red Cell Distribution Width 16.9 % (11.5-14.5) Platelet Count 278 x10^3/uL (140-400) Neutrophils (%) (Auto) 82 % (31-73) Lymphocytes (%) (Auto) 15 % (24-48) Monocytes (%) (Auto) 3 % (0-9) Eosinophils (%) (Auto) 0 % (0-3) Basophils (%) (Auto) 0 % (0-3) Neutrophils # (Auto) 5.6 x10^3/uL (1.8-7.7) Lymphocytes # (Auto) 1.0 x10^3/uL (1.0-4.8) Monocytes # (Auto) 0.2 x10^3/uL (0.0-1.1) Eosinophils # (Auto) 0.0 x10^3/uL (0.0-0.7) Basophils # (Auto) 0.0 x10^3/uL (0.0-0.2) Sodium Level 137 mmol/L (136-145) Potassium Level 3.4 mmol/L (3.5-5.1) Chloride Level 94 mmol/L (98-107) Carbon Dioxide Level 34 mmol/L (21-32) Anion Gap 9 (6-14) Blood Urea Nitrogen 34 mg/dL (7-20) Creatinine 1.4 mg/dL (0.6-1.0) Estimated GFR (Cockcroft-Gault) 40.3 BUN/Creatinine Ratio 24 (6-20) Glucose Level 163 mg/dL (70-99) Calcium Level 8.3 mg/dL (8.5-10.1) Total Bilirubin 0.3 mg/dL (0.2-1.0) Aspartate Amino Transf (AST/SGOT) 31 U/L (15-37) Alanine Aminotransferase (ALT/SGPT) 29 U/L (14-59) Alkaline Phosphatase 74 U/L (46-116) Total Protein 6.9 g/dL (6.4-8.2) Albumin 2.5 g/dL (3.4-5.0) Albumin/Globulin Ratio 0.6 (1.0-1.7) O2 Saturation 87 % (92-99) Arterial Blood pH 7.49 (7.35-7.45) Arterial Blood pCO2 at Patient Temp 45 mmHg (35-46) Arterial Blood pO2 at Patient Temp 52 mmHg (75-108) Arterial Blood HCO3 33 mmol/L (21-28) Arterial Blood Base Excess 9 mmol/L (-3-3) FiO2 100 Impression . Full note dictated Patient seen in the emergency room Acute hypoxemic respiratory failure related to COVID-19 viral pneumonia sepsis See orders Initiate remdesivir Discussed with RT and RN LAQUITA UMANZOR MD Apr 28, 2021 11:26
[2021-04-28] MEDS ORDERED: ONDANSETRON PF 4 MG/2 ML VIAL. IVP PRN (12:00)
[2021-04-28] MEDS ORDERED: DEXTROSE 50% 25 GM / 50ML DISP.SYRIN. IV PRN (12:00)
[2021-04-28] MEDS ORDERED: SENNOSIDES 8.6 MG TABLET PO PRN (12:00)
[2021-04-28] MEDS ORDERED: PROCHLORPERAZINE 10 MG/2 ML VIAL. IV PRN (12:00)
[2021-04-28] MEDS ORDERED: ACETAMINOPHEN 325 MG TABLET. PO PRN (12:00)
[2021-04-28] MEDS ORDERED: LORazepam 0.5 MG TABLET PO PRN (12:30)
[2021-04-28] MEDS: IV NORMAL SALINE 1000ML BAG 1,000 ML IV SCH ×2 (12:35→21:40)
[2021-04-28] MEDS: ENOXAPARIN 40 MG/0.4 ML SYRINGE. SQ SCH (12:40)
[2021-04-28] MEDS ORDERED: REMDESIVIR LOAD in IV NORMAL SALINE 250ML TV IV ONE (13:00)
[2021-04-28] MEDS: methylPREDNISolone SOD SUCC PF 40 MG/ML VIAL. IV SCH ×2 (13:29→21:39)
[2021-04-28] MEDS: THIAMINE 100 MG TABLET. PO SCH (13:30)
[2021-04-28] MEDS: ASCORBIC ACID 1,000 MG TABLET PO SCH ×2 (13:30→21:39)
[2021-04-28] MEDS: ZINC SULFATE 220 MG CAPSULE. PO SCH (13:30)
[2021-04-28] MEDS ORDERED: PANTOPRAZOLE 40 MG TABLET.DR. PO SCH (16:30)
--- NOTE | 2021-04-28 17:15 | CONS ---
DATE OF CONSULTATION: 04/28/2021 ATTENDING PHYSICIAN: Cassidy Sims DO CONSULTING PHYSICIAN: Christine Fajardo MD REASON FOR CONSULTATION: The patient is seen in Pulmonary consultation at the request of Dr. Sims for acute hypoxemic respiratory failure, requiring noninvasive ventilation; COVID-19 positive. HISTORY OF PRESENT ILLNESS: The patient is a 45-year-old female with a history of hypertension, presented with increasing shortness of breath, not feeling well, almost passed out. Symptoms began approximately 2 weeks ago. The patient has been reportedly vaccinated against COVID-19. She presented with the above symptoms. She was evaluated and found to have SARS-CoV-2 positivity. Her serology was positive. Electrolytes were noted. Potassium is low. BUN was elevated, creatinine was elevated. Troponin was not elevated. BNP was elevated. Initial arterial blood gas; pH of 7.49, PaCO2 of 45, pO2 of 44. White count was normal. She had lymphopenia. Chest x-ray compatible with COVID-19. PAST MEDICAL HISTORY: Hypertension; obesity, BMI of 39. REVIEW OF SYSTEMS: Unobtainable secondary to the patient's condition. CURRENT MEDICATIONS: List was reviewed. She was in the Emergency Department on hold, to be transferred to the Intensive Care Unit. She received ceftriaxone, dexamethasone, doxycycline and Zosyn. PHYSICAL EXAMINATION: GENERAL: The patient was awake, alert, following commands, on BiPAP. VITAL SIGNS: Blood pressure was noted. Vital signs were otherwise stable. Her saturations were hovering around 90%. EYES: The sclerae were nonicteric. NECK: Jugular venous distention could not be assessed secondary to body habitus. CHEST: Full expansion. LUNGS: Anteriorly were clear. CARDIOVASCULAR: Regular rate and rhythm with S1, S2. No S3. ABDOMEN: Obese. EXTREMITIES: No clubbing, cyanosis. Minimal edema. LABORATORY DATA: Reviewed as indicated above. Chest x-ray was reviewed. IMPRESSION: 1. Acute hypoxemic respiratory failure. 2. COVID-19 viral pneumonia, sepsis. 3. Hypertension. 4. Reportedly, the patient has been vaccinated. 5. Obesity. 6. Abnormal electrolytes. 7. Elevated BUN and creatinine compatible with acute kidney injury. 8. Protein malnutrition, present upon admission. PLAN: 1. We will continue support with BiPAP. Hopefully, the patient avoids intubation. 2. Steroids. 3. Initiate remdesivir. 4. Replace potassium. 5. IV fluids. 6. Repeat Chem-7 in the a.m. 7. DVT/GI prophylaxis. 8. Empiric antibiotics with doxycycline. I do appreciate the privilege in sharing in the patient's care. MICHELLE/DAI/CARLINE DR: Hira TID: [id number]
[2021-04-28] MEDS ORDERED: LISI2.5T12 PO (23:34)
[2021-04-29] VITALS (24 sets, daily range): BP systolic 102–127; BP diastolic 57–81
[2021-04-29 04:58] LABS: BASO % 0 % (0-3); EOS % 0 % (0-3); HEMATOCRIT 43.5 % (36.0-47.0); HEMOGLOBIN 13.8 g/dL (12.0-15.5); LYMPH # 1.1 x10^3/uL (1.0-4.8); LYMPH % 14 % (24-48); MEAN CORPUSCULAR HEMOGLOBIN 19 pg (25-35); MEAN CORPUSCULAR HGB CONC 32 g/dL (31-37); MEAN CORPUSCULAR VOLUME 60 fL (79-100); MONO # 0.6 x10^3/uL (0.0-1.1); MONO % 7 % (0-9); NEUT # 6.7 x10^3/uL (1.8-7.7); NEUT % 79 % (31-73); PLATELET COUNT 311 x10^3/uL (140-400); RED BLOOD COUNT 7.21 x10^6/uL (3.50-5.40); WHITE BLOOD COUNT 8.5 x10^3/uL (4.0-11.0)
[2021-04-29 05:32] LABS: GFR 59.4; MAGNESIUM 2.7 mg/dL (1.8-2.4); PHOSPHORUS 4.5 mg/dL (2.6-4.7)
[2021-04-29 05:34] LABS: POTASSIUM 2.8 mmol/L (3.5-5.1)
[2021-04-29] MEDS ORDERED: POTASSIUM CHLORIDE 20MEQ 100 ML IV SCH (05:45)
[2021-04-29] MEDS: POTASSIUM CHLORIDE 10MEQ 100 ML IV SCH ×4 (05:58→09:15)
[2021-04-29] MEDS: methylPREDNISolone SOD SUCC PF 40 MG/ML VIAL. IV SCH ×3 (06:04→21:04)
[2021-04-29] MEDS: ZINC SULFATE 220 MG CAPSULE. PO SCH (07:48)
[2021-04-29] MEDS: THIAMINE 100 MG TABLET. PO SCH (07:48)
[2021-04-29] MEDS: ENOXAPARIN 40 MG/0.4 ML SYRINGE. SQ SCH ×2 (07:49→21:04)
[2021-04-29] MEDS: ASCORBIC ACID 1,000 MG TABLET PO SCH ×3 (07:49→21:04)
[2021-04-29] MEDS: IV NORMAL SALINE 1000ML BAG 1,000 ML IV SCH (07:50)
[2021-04-29 08:23] LABS: BASE EXCESS ABG 7 mmol/L (-3-3); HCO3 ABG 31 mmol/L (21-28); PCO2 ABG 46 mmHg (35-46); PO2 ABG 60 mmHg (75-108); SAT O2 ABG 91 % (92-99)
[2021-04-29 08:24] LABS: FIO2 ABG 100
[2021-04-29] MEDS: PANTOPRAZOLE IV PUSH 40 MG VIAL. IVP SCH ×2 (08:32→09:14)
--- NOTE | 2021-04-29 10:11 | PDOC ---
PULMONARY PROGRESS NOTES DATE: 04/29/21 TIME: 10:08 Subjective Remains on BiPAP 100% FiO2. Tolerating it so far well. Vitals Vital Signs Date Time Temp Pulse Resp B/P (MAP) Pulse Ox O2 Delivery O2 Flow Rate FiO2 04/29/21 07:52 93 BiPAP/CPAP 04/29/21 06:00 60 114/71 (85) 04/29/21 04:00 98.6 28 98.6 Comments Visual exam done due to COVID-19 viral pneumonia. Remains on BiPAP. No paradoxical breathing. No obvious skin rash or edema. General: Alert, No acute distress Labs Laboratory Tests Test 04/27/21 19:18 04/27/21 19:35 04/27/21 20:00 04/27/21 20:10 White Blood Count 8.8 x10^3/uL (4.0-11.0) Red Blood Count 7.42 x10^6/uL (3.50-5.40) Hemoglobin 14.5 g/dL (12.0-15.5) Hematocrit 44.4 % (36.0-47.0) Mean Corpuscular Volume 60 fL (79-100) Mean Corpuscular Hemoglobin 20 pg (25-35) Mean Corpuscular Hemoglobin Concent 33 g/dL (31-37) Red Cell Distribution Width 17.6 % (11.5-14.5) Platelet Count 271 x10^3/uL (140-400) Neutrophils (%) (Auto) 77 % (31-73) Lymphocytes (%) (Auto) 16 % (24-48) Monocytes (%) (Auto) 6 % (0-9) Eosinophils (%) (Auto) 0 % (0-3) Basophils (%) (Auto) 1 % (0-3) Neutrophils # (Auto) 6.8 x10^3/uL (1.8-7.7) Lymphocytes # (Auto) 1.4 x10^3/uL (1.0-4.8) Monocytes # (Auto) 0.5 x10^3/uL (0.0-1.1) Eosinophils # (Auto) 0.0 x10^3/uL (0.0-0.7) Basophils # (Auto) 0.0 x10^3/uL (0.0-0.2) Platelet Estimate Adequate (ADEQUATE) Polychromasia Slight Hypochromasia Slight Anisocytosis Slight Microcytosis Marked Target Cells Occ Lactic Acid Level 1.7 mmol/L (0.4-2.0) Influenza Type A Antigen Negative (NEGATIVE) Influenza Type B Antigen Negative (NEGATIVE) SARS-CoV-2 RNA (NANDINI) Positive (Negative) SARS-CoV-2 Antigen (Rapid) Negative (NEGATIVE) Sodium Level 135 mmol/L (136-145) Potassium Level 2.4 mmol/L (3.5-5.1) Chloride Level 93 mmol/L (98-107) Carbon Dioxide Level 34 mmol/L (21-32) Anion Gap 8 (6-14) Blood Urea Nitrogen 32 mg/dL (7-20) Creatinine 1.6 mg/dL (0.6-1.0) Estimated GFR (Cockcroft-Gault) 34.6 BUN/Creatinine Ratio 20 (6-20) Glucose Level 118 mg/dL (70-99) Calcium Level 8.7 mg/dL (8.5-10.1) Total Bilirubin 0.3 mg/dL (0.2-1.0) Aspartate Amino Transf (AST/SGOT) 31 U/L (15-37) Alanine Aminotransferase (ALT/SGPT) 27 U/L (14-59) Alkaline Phosphatase 72 U/L (46-116) Troponin I Quantitative < 0.017 ng/mL (0.000-0.055) LZ-Pdq-C-Type Natriuretic Peptide 418 pg/mL (0-124) Total Protein 7.3 g/dL (6.4-8.2) Albumin 2.4 g/dL (3.4-5.0) Albumin/Globulin Ratio 0.5 (1.0-1.7) Procalcitonin < 0.10 ng/mL (0.00-0.10) O2 Saturation 81 % (92-99) Arterial Blood pH 7.49 (7.35-7.45) Arterial Blood pCO2 at Patient Temp 45 mmHg (35-46) Arterial Blood pO2 at Patient Temp 44 mmHg (75-108) Arterial Blood HCO3 34 mmol/L (21-28) Arterial Blood Base Excess 9 mmol/L (-3-3) FiO2 100 Test 04/27/21 23:30 04/28/21 04:00 04/28/21 07:28 04/29/21 04:30 Troponin I Quantitative < 0.017 ng/mL (0.000-0.055) < 0.017 ng/mL (0.000-0.055) White Blood Count 6.9 x10^3/uL (4.0-11.0) 8.5 x10^3/uL (4.0-11.0) Red Blood Count 7.49 x10^6/uL (3.50-5.40) 7.21 x10^6/uL (3.50-5.40) Hemoglobin 14.5 g/dL (12.0-15.5) 13.8 g/dL (12.0-15.5) Hematocrit 44.9 % (36.0-47.0) 43.5 % (36.0-47.0) Mean Corpuscular Volume 60 fL (79-100) 60 fL (79-100) Mean Corpuscular Hemoglobin 19 pg (25-35) 19 pg (25-35) Mean Corpuscular Hemoglobin Concent 32 g/dL (31-37) 32 g/dL (31-37) Red Cell Distribution Width 16.9 % (11.5-14.5) 17.0 % (11.5-14.5) Platelet Count 278 x10^3/uL (140-400) 311 x10^3/uL (140-400) Neutrophils (%) (Auto) 82 % (31-73) 79 % (31-73) Lymphocytes (%) (Auto) 15 % (24-48) 14 % (24-48) Monocytes (%) (Auto) 3 % (0-9) 7 % (0-9) Eosinophils (%) (Auto) 0 % (0-3) 0 % (0-3) Basophils (%) (Auto) 0 % (0-3) 0 % (0-3) Neutrophils # (Auto) 5.6 x10^3/uL (1.8-7.7) 6.7 x10^3/uL (1.8-7.7) Lymphocytes # (Auto) 1.0 x10^3/uL (1.0-4.8) 1.1 x10^3/uL (1.0-4.8) Monocytes # (Auto) 0.2 x10^3/uL (0.0-1.1) 0.6 x10^3/uL (0.0-1.1) Eosinophils # (Auto) 0.0 x10^3/uL (0.0-0.7) 0.0 x10^3/uL (0.0-0.7) Basophils # (Auto) 0.0 x10^3/uL (0.0-0.2) 0.0 x10^3/uL (0.0-0.2) Sodium Level 137 mmol/L (136-145) 142 mmol/L (136-145) Potassium Level 3.4 mmol/L (3.5-5.1) 2.8 mmol/L (3.5-5.1) Chloride Level 94 mmol/L (98-107) 100 mmol/L (98-107) Carbon Dioxide Level 34 mmol/L (21-32) 35 mmol/L (21-32) Anion Gap 9 (6-14) 7 (6-14) Blood Urea Nitrogen 34 mg/dL (7-20) 32 mg/dL (7-20) Creatinine 1.4 mg/dL (0.6-1.0) 1.0 mg/dL (0.6-1.0) Estimated GFR (Cockcroft-Gault) 40.3 59.4 BUN/Creatinine Ratio 24 (6-20) Glucose Level 163 mg/dL (70-99) 165 mg/dL (70-99) Calcium Level 8.3 mg/dL (8.5-10.1) 8.0 mg/dL (8.5-10.1) Total Bilirubin 0.3 mg/dL (0.2-1.0) Aspartate Amino Transf (AST/SGOT) 31 U/L (15-37) Alanine Aminotransferase (ALT/SGPT) 29 U/L (14-59) Alkaline Phosphatase 74 U/L (46-116) Total Protein 6.9 g/dL (6.4-8.2) Albumin 2.5 g/dL (3.4-5.0) Albumin/Globulin Ratio 0.6 (1.0-1.7) Procalcitonin < 0.10 ng/mL (0.00-0.10) O2 Saturation 87 % (92-99) Arterial Blood pH 7.49 (7.35-7.45) Arterial Blood pCO2 at Patient Temp 45 mmHg (35-46) Arterial Blood pO2 at Patient Temp 52 mmHg (75-108) Arterial Blood HCO3 33 mmol/L (21-28) Arterial Blood Base Excess 9 mmol/L (-3-3) FiO2 100 Phosphorus Level 4.5 mg/dL (2.6-4.7) Magnesium Level 2.7 mg/dL (1.8-2.4) Test 04/29/21 08:24 O2 Saturation 91 % (92-99) Arterial Blood pH 7.45 (7.35-7.45) Arterial Blood pCO2 at Patient Temp 46 mmHg (35-46) Arterial Blood pO2 at Patient Temp 60 mmHg (75-108) Arterial Blood HCO3 31 mmol/L (21-28) Arterial Blood Base Excess 7 mmol/L (-3-3) FiO2 100 Laboratory Tests Test 04/29/21 04:30 04/29/21 08:24 White Blood Count 8.5 x10^3/uL (4.0-11.0) Red Blood Count 7.21 x10^6/uL (3.50-5.40) Hemoglobin 13.8 g/dL (12.0-15.5) Hematocrit 43.5 % (36.0-47.0) Mean Corpuscular Volume 60 fL (79-100) Mean Corpuscular Hemoglobin 19 pg (25-35) Mean Corpuscular Hemoglobin Concent 32 g/dL (31-37) Red Cell Distribution Width 17.0 % (11.5-14.5) Platelet Count 311 x10^3/uL (140-400) Neutrophils (%) (Auto) 79 % (31-73) Lymphocytes (%) (Auto) 14 % (24-48) Monocytes (%) (Auto) 7 % (0-9) Eosinophils (%) (Auto) 0 % (0-3) Basophils (%) (Auto) 0 % (0-3) Neutrophils # (Auto) 6.7 x10^3/uL (1.8-7.7) Lymphocytes # (Auto) 1.1 x10^3/uL (1.0-4.8) Monocytes # (Auto) 0.6 x10^3/uL (0.0-1.1) Eosinophils # (Auto) 0.0 x10^3/uL (0.0-0.7) Basophils # (Auto) 0.0 x10^3/uL (0.0-0.2) Sodium Level 142 mmol/L (136-145) Potassium Level 2.8 mmol/L (3.5-5.1) Chloride Level 100 mmol/L (98-107) Carbon Dioxide Level 35 mmol/L (21-32) Anion Gap 7 (6-14) Blood Urea Nitrogen 32 mg/dL (7-20) Creatinine 1.0 mg/dL (0.6-1.0) Estimated GFR (Cockcroft-Gault) 59.4 Glucose Level 165 mg/dL (70-99) Calcium Level 8.0 mg/dL (8.5-10.1) Phosphorus Level 4.5 mg/dL (2.6-4.7) Magnesium Level 2.7 mg/dL (1.8-2.4) O2 Saturation 91 % (92-99) Arterial Blood pH 7.45 (7.35-7.45) Arterial Blood pCO2 at Patient Temp 46 mmHg (35-46) Arterial Blood pO2 at Patient Temp 60 mmHg (75-108) Arterial Blood HCO3 31 mmol/L (21-28) Arterial Blood Base Excess 7 mmol/L (-3-3) FiO2 100 Medications Active Scripts Medications Dose Route/Sig Max Daily Dose Days Date Category Lisinopril Unknown Strength Tablet Unknown Dose PO DAILY 04/28/21 Reported Comments Chest x-ray reviewed. Diffuse bilateral patchy interstitial infiltrates and cardiomegaly Impression . 1. Acute hypoxemic respiratory failure. 2. COVID-19 viral pneumonia, sepsis. 3. Hypertension. 4. Reportedly, the patient has been vaccinated. 5. Obesity. 6. Abnormal electrolytes. 7. Elevated BUN and creatinine compatible with acute kidney injury. 8. Protein malnutrition, present upon admission. Plan . PLAN: 1. We will continue support with BiPAP. Hopefully, the patient avoids intubation. We will closely watch respiratory status. 2. Steroids. Per protocol. 3. Remdesivir per protocol for 5 days. 4. Replace electrolytes as needed. 5. Status post IV fluids. 6. Follow-up labs. Creatinine has improved. 7. DVT/GI prophylaxis. 8. Empiric antibiotics with doxycycline. Discussed with RN and respiratory therapist. OLGA LISA MD Apr 29, 2021 10:11
--- NOTE | 2021-04-29 11:14 | NUR ---
Allergies and reactions nkda INR none BUN 32 Cr 1.0 Platelets 311 Blood culture done yes blood culture results no growth Order Verified yes Consent signed yes Previous PICC placement no Past Medical/Surgical history and current diagnosis reviewed Patient Medical /Surgical History Related to PICC line placement Infectious Disease consult Problems breathing lying flat Special considerations for PICC line placement Infections PICC placement indication Caustic medication class drug usage, FDC antibiotic usage, Multiple/ Frequent blood draws, Poor peripheral intravenous access Total Parenteral Nutrition (TPN) Denise Vaughn RN PICC Nurse Addendum: 04/29/21 at 1121 by DENISE VAUGHN RN Amended: Links added.
--- NOTE | 2021-04-29 11:19 | NUR ---
Procedure: Following complete explanation of the PICC procedure including the indications, risks, and potential complications, informed consent was obtained. The possibility for infection was discussed along with signs, symptoms, and prevention. All the questions were answered.yes Written and verbal patient education was provided.yes Hand hygiene performed. yes Standardized central line checklist was utilized.yes The patient was placed in the supine position, the arm was prepped with chlorhexidine and patient draped with maximum sterile barrier. 1 mL 1% lidocaine was infiltrated into the skin to provide local anesthesia. A thorough assessment of right upper extremity completed. Using real-time ultrasound guidance and standardized micro puncture set, the Basilic vein was punctured and a peel away sheath was placed using the modified Seldinger technique. A tip location device was used to ensure adequate catheter placement. The catheter was secured using a securement device and an antimicrobial patch was applied directly on the insertion site followed by a transparent dressing. All ports withdraw blood and flush without resistance. Patient tolerated the procedure without apparent complication(s). triple Lumen Power PICC placement successful and uncomplicated. Placement verified by EKG tip confirmation system and/or chest x-ray. Tip located in the CAJ Complications:none Addendum: 04/29/21 at 1121 by RUPESH ENCARNACION RN Amended: Links added.
--- NOTE | 2021-04-29 12:29 | PDOC ---
[facility] PROGRESS NOTE Date of Service DOS: DATE: 04/29/21 TIME: 12:06 Chief Complaint Chief Complaint CC: SOB Acute hypoxic respiratory failure Covid-19 viral pneumonia Sepsis Hypokalemia HTN Morbid obesity MAYRA Protein malnutrition History of Present Illness History of Present Illness HPI: Patient is a 45-year-old female with past medical history of hypertension and morbid obesity who presents with shortness of breath for the past 2 weeks that has gotten worse in the past few days. Patient says she got stung by bees 2 weeks ago she did have some dizziness today and felt like she was going to pass out. Patient states she is vaccinated for Covid. Denies any fevers, chest pain, abdominal pain, diarrhea, sick contacts, dysuria or hematuria. 04/29/21: Patient was seen and examined in the ICU today. She is currently on BiPAP 08/06. O2 saturation while being examined is at 89%. Discussed with RN. Patient currently on electrolyte replacement protocol. Chart reviewed. Vitals/I&O Vitals/I&O: Vital Signs Date Time Temp Pulse Resp B/P (MAP) Pulse Ox O2 Delivery O2 Flow Rate FiO2 04/29/21 11:26 94 BiPAP/CPAP 04/29/21 10:00 58 2 102/57 (72) 04/29/21 08:00 98.6 98.6 I & O 04/28/21 04/28/21 04/29/21 15:00 23:00 07:00 Intake Total 210 ml 100 ml 50 ml Output Total 350 ml Balance 210 ml 100 ml -300 ml Physical Exam Heart: Regular rate, Normal S1, Normal S2 Extremities: No edema Skin: No rashes Labs Labs: Laboratory Tests Test 04/29/21 04:30 04/29/21 08:24 White Blood Count 8.5 x10^3/uL (4.0-11.0) Red Blood Count 7.21 x10^6/uL (3.50-5.40) Hemoglobin 13.8 g/dL (12.0-15.5) Hematocrit 43.5 % (36.0-47.0) Mean Corpuscular Volume 60 fL (79-100) Mean Corpuscular Hemoglobin 19 pg (25-35) Mean Corpuscular Hemoglobin Concent 32 g/dL (31-37) Red Cell Distribution Width 17.0 % (11.5-14.5) Platelet Count 311 x10^3/uL (140-400) Neutrophils (%) (Auto) 79 % (31-73) Lymphocytes (%) (Auto) 14 % (24-48) Monocytes (%) (Auto) 7 % (0-9) Eosinophils (%) (Auto) 0 % (0-3) Basophils (%) (Auto) 0 % (0-3) Neutrophils # (Auto) 6.7 x10^3/uL (1.8-7.7) Lymphocytes # (Auto) 1.1 x10^3/uL (1.0-4.8) Monocytes # (Auto) 0.6 x10^3/uL (0.0-1.1) Eosinophils # (Auto) 0.0 x10^3/uL (0.0-0.7) Basophils # (Auto) 0.0 x10^3/uL (0.0-0.2) Sodium Level 142 mmol/L (136-145) Potassium Level 2.8 mmol/L (3.5-5.1) Chloride Level 100 mmol/L (98-107) Carbon Dioxide Level 35 mmol/L (21-32) Anion Gap 7 (6-14) Blood Urea Nitrogen 32 mg/dL (7-20) Creatinine 1.0 mg/dL (0.6-1.0) Estimated GFR (Cockcroft-Gault) 59.4 Glucose Level 165 mg/dL (70-99) Calcium Level 8.0 mg/dL (8.5-10.1) Phosphorus Level 4.5 mg/dL (2.6-4.7) Magnesium Level 2.7 mg/dL (1.8-2.4) O2 Saturation 91 % (92-99) Arterial Blood pH 7.45 (7.35-7.45) Arterial Blood pCO2 at Patient Temp 46 mmHg (35-46) Arterial Blood pO2 at Patient Temp 60 mmHg (75-108) Arterial Blood HCO3 31 mmol/L (21-28) Arterial Blood Base Excess 7 mmol/L (-3-3) FiO2 100 Review of Systems Review of Systems: General: patient admits to weakness and dizziness. Eyes: no changes in vision. no blurry vision. Assessment and Plan Assessmemt and Plan Problems Medical Problems: (1) Acute renal failure Status: Acute (2) Acute respiratory failure Status: Acute (3) Bee sting Status: Acute (4) Hypokalemia Status: Acute SOB Acute hypoxic respiratory failure Covid-19 viral pneumonia Sepsis Hypokalemia HTN Morbid obesity MAYRA Protein malnutrition Plan: 1. ICU monitoring 2. Covid protocol (Remdesivir day 1, SOLU-Medrol, Vitamin C, Zinc, Vitamin B1) 3. Continue electrolyte replacement protocol for electrolyte disturbances 4. Continue on BiPAP 5. Trying to titrate down O2 requirements 6. Continue IV fluids 7. DVT prophylaxis (Lovenox 40mg SQ q 24 hr) 8. Trend labs 9. Full code 10. Appreciate subspecialist input 11. Prognosis guarded CC time 31 minutes Comment Review of Relevant I have reviewed the following items anny (where applicable) has been applied. Medications: Current Medications Medications (Trade) Dose Ordered Sig/Rin Route PRN Reason Start Time Stop Time Status Last Admin Dose Admin Ascorbic Acid (Vitamin C) 3,000 mg TID PO 04/28/21 14:00 04/29/21 07:49 Methylprednisolone Sodium Succinate (SOLU-Medrol 40MG VIAL) 40 mg Q8HRS IV 04/28/21 14:00 04/29/21 06:04 Thiamine Mononitrate (Vitamin B-1) 300 mg DAILY PO 04/28/21 13:00 04/29/21 07:48 Zinc Sulfate (Orazinc) 220 mg DAILY PO 04/28/21 13:00 04/29/21 07:48 Enoxaparin Sodium (Lovenox 40mg Syringe) 40 mg Q24H SQ 04/28/21 12:15 04/29/21 07:49 Pantoprazole Sodium (Protonix) 40 mg DAILYAC PO 04/28/21 16:30 04/29/21 08:26 DC 04/28/21 16:56 Remdesivir 200 mg/ Sodium Chloride 210 ml @ 210 mls/hr 1X ONCE IV 04/28/21 13:00 04/28/21 13:59 DC 04/28/21 13:29 Potassium Chloride/Water 100 ml @ 100 mls/hr Q1H IV 04/29/21 06:00 04/29/21 09:59 DC 04/29/21 09:15 Pantoprazole Sodium (PROTONIX VIAL for IV PUSH) 40 mg DAILYAC IVP 04/29/21 09:00 04/29/21 09:14 Justifications for Admission Other Justification Acute hypoxic respiratory failure COVID-19 positive test (U07.1, COVID-19) with Acute Pneumonia (J12.89, Other viral pneumonia) (If respiratory failure or sepsis present, add as separate assessment) SANDRA LONGORIA III DO Apr 29, 2021 12:29
--- NOTE | 2021-04-29 12:43 | RAD ---
EXAM: XR CHEST 1V 04/29/2021 11:59 AM CLINICAL INDICATION: PICC placement COMPARISON: Chest radiograph 04/27/2021 TECHNIQUE: AP upright view of the chest FINDINGS: A new right PICC tip projects over the superior vena cava. Heart is enlarged. Lungs are hy poexpanded. There are diffuse bilateral airspace opacities, unchanged. No pleural effusion or pneumot horax. IMPRESSION: 1. New right PICC in appropriate position. 2. Unchanged cardiomediastinal and diffuse bilateral airspace opacities. Electronically signed by: Tracee Castellon MD (04/29/2021 12:40 PM) [id number]
[2021-04-29] MEDS: POTASSIUM CHLORIDE 20 MEQ IV SCH ×2 (13:39→16:08)
[2021-04-29] MEDS: REMDESIVIR 100mg in NORMAL SALINE 250ML X 4 DAYS IV SCH (13:45)
[2021-04-29 14:36] LABS: BILIRUBIN,URINE NEGATIVE (NEG); CLARITY,URINE CLEAR; COLOR,URINE YELLOW; NITRITE,URINE NEGATIVE (NEG); PH,URINE 5.5 (<5.0-8.0); PROTEIN,URINE NEGATIVE (NEG-TRACE); UROBILINOGEN,URINE 0.2 mg/dL (0.2 mg/dL)
[2021-04-29 14:56] LABS: HYALINE CASTS, URINE MANY /HPF
[2021-04-29 14:57] LABS: BACTERIA,URINE 0 /HPF (0-FEW); RBC,URINE 0 /HPF (0-2)
--- NOTE | 2021-04-29 15:51 | NUR ---
SS following for discharge planning. SS reviewed pt chart and discussed with pt RN. Pt is from home with spouse and is currently on the BIPAP at 100%. COVID19 positive. Pt on IV Remdesivir and IV Solu-Medrol. SS will continue to follow for discharge planning.
[2021-04-29] MEDS: DOXYCYCLINE HYCLATE 100 MG in IV DEXTROSE 5% 100ML 100 ML IV SCH (16:08)
[2021-04-29] MEDS: LACTOBACILLUS RHAMNOSUS GG 1 CAPSULE. PO SCH (21:04)
[2021-04-30] VITALS (23 sets, daily range): BP systolic 111–155; BP diastolic 70–97
[2021-04-30] MEDS: methylPREDNISolone SOD SUCC PF 40 MG/ML VIAL. IV SCH ×3 (06:18→21:13)
[2021-04-30 06:30] LABS: BASO % 0 % (0-3); EOS % 0 % (0-3); HEMATOCRIT 41.3 % (36.0-47.0); HEMOGLOBIN 13.2 g/dL (12.0-15.5); LYMPH # 1.4 x10^3/uL (1.0-4.8); LYMPH % 14 % (24-48); MEAN CORPUSCULAR HEMOGLOBIN 19 pg (25-35); MEAN CORPUSCULAR HGB CONC 32 g/dL (31-37); MEAN CORPUSCULAR VOLUME 60 fL (79-100); MONO # 0.9 x10^3/uL (0.0-1.1); MONO % 10 % (0-9); NEUT # 7.4 x10^3/uL (1.8-7.7); NEUT % 76 % (31-73); PLATELET COUNT 279 x10^3/uL (140-400); RED BLOOD COUNT 6.85 x10^6/uL (3.50-5.40); RED CELL DISTRIBUTION WIDTH 17.5 % (11.5-14.5); WHITE BLOOD COUNT 9.8 x10^3/uL (4.0-11.0)
[2021-04-30 06:46] LABS: CALCIUM 8.1 mg/dL (8.5-10.1); GFR 59.4; MAGNESIUM 2.8 mg/dL (1.8-2.4); POTASSIUM 3.5 mmol/L (3.5-5.1)
[2021-04-30 08:11] LABS: % BANDS 3 % (0-9); % LYMPHS 11 % (24-48); % MONOS 4 % (0-10); % SEGS 82 % (35-66); NUCLEATED RBC 1
[2021-04-30 08:12] LABS: ANISOCYTOSIS PRESENT; HYPOCHROMIA PRESENT; MICROCYTOSIS PRESENT; PLT ESTIMATE ADEQUATE (ADEQUATE); POLYCHROMASIA PRESENT
[2021-04-30 09:09] LABS: BASE EXCESS ABG 6 mmol/L (-3-3); HCO3 ABG 30 mmol/L (21-28); PCO2 ABG 41 mmHg (35-46); PO2 ABG 78 mmHg (75-108); SAT O2 ABG 96 % (92-99)
[2021-04-30 09:12] LABS: FIO2 ABG 100
--- NOTE | 2021-04-30 09:49 | PDOC ---
PULMONARY PROGRESS NOTES DATE: 04/30/21 TIME: 09:48 Subjective Remains on BiPAP 100% FiO2. Tolerating it so far well. Vitals Vital Signs Date Time Temp Pulse Resp B/P (MAP) Pulse Ox O2 Delivery O2 Flow Rate FiO2 04/30/21 08:51 98 BiPAP/CPAP 04/30/21 07:00 44 26 144/72 (96) 04/30/21 04:00 97.4 97.4 Comments Visual exam done due to COVID-19 viral pneumonia. Remains on BiPAP. No paradoxical breathing. No obvious skin rash or edema. General: Alert, No acute distress Labs Laboratory Tests Test 04/29/21 04:30 04/29/21 08:24 04/29/21 12:00 04/29/21 12:40 White Blood Count 8.5 x10^3/uL (4.0-11.0) Red Blood Count 7.21 x10^6/uL (3.50-5.40) Hemoglobin 13.8 g/dL (12.0-15.5) Hematocrit 43.5 % (36.0-47.0) Mean Corpuscular Volume 60 fL (79-100) Mean Corpuscular Hemoglobin 19 pg (25-35) Mean Corpuscular Hemoglobin Concent 32 g/dL (31-37) Red Cell Distribution Width 17.0 % (11.5-14.5) Platelet Count 311 x10^3/uL (140-400) Neutrophils (%) (Auto) 79 % (31-73) Lymphocytes (%) (Auto) 14 % (24-48) Monocytes (%) (Auto) 7 % (0-9) Eosinophils (%) (Auto) 0 % (0-3) Basophils (%) (Auto) 0 % (0-3) Neutrophils # (Auto) 6.7 x10^3/uL (1.8-7.7) Lymphocytes # (Auto) 1.1 x10^3/uL (1.0-4.8) Monocytes # (Auto) 0.6 x10^3/uL (0.0-1.1) Eosinophils # (Auto) 0.0 x10^3/uL (0.0-0.7) Basophils # (Auto) 0.0 x10^3/uL (0.0-0.2) Sodium Level 142 mmol/L (136-145) Potassium Level 2.8 mmol/L (3.5-5.1) 3.2 mmol/L (3.5-5.1) Chloride Level 100 mmol/L (98-107) Carbon Dioxide Level 35 mmol/L (21-32) Anion Gap 7 (6-14) Blood Urea Nitrogen 32 mg/dL (7-20) Creatinine 1.0 mg/dL (0.6-1.0) Estimated GFR (Cockcroft-Gault) 59.4 Glucose Level 165 mg/dL (70-99) Calcium Level 8.0 mg/dL (8.5-10.1) Phosphorus Level 4.5 mg/dL (2.6-4.7) Magnesium Level 2.7 mg/dL (1.8-2.4) O2 Saturation 91 % (92-99) Arterial Blood pH 7.45 (7.35-7.45) Arterial Blood pCO2 at Patient Temp 46 mmHg (35-46) Arterial Blood pO2 at Patient Temp 60 mmHg (75-108) Arterial Blood HCO3 31 mmol/L (21-28) Arterial Blood Base Excess 7 mmol/L (-3-3) FiO2 100 Urine Collection Type U cath Urine Color Yellow Urine Clarity Clear Urine pH 5.5 (<5.0-8.0) Urine Specific Bevier 1.020 (1.000-1.030) Urine Protein Negative mg/dL (NEG-TRACE) Urine Glucose (UA) Negative mg/dL (NEG) Urine Ketones (Stick) Negative mg/dL (NEG) Urine Blood Negative (NEG) Urine Nitrite Negative (NEG) Urine Bilirubin Negative (NEG) Urine Urobilinogen Dipstick 0.2 mg/dL (0.2 mg/dL) Urine Leukocyte Esterase Negative (NEG) Urine RBC 0 /HPF (0-2) Urine WBC 1-4 /HPF (0-4) Urine Squamous Epithelial Cells Few /LPF Urine Bacteria 0 /HPF (0-FEW) Urine Hyaline Casts Many /HPF Urine Mucus Mod /LPF Test 04/30/21 05:28 04/30/21 06:05 04/30/21 09:00 Glucose (Fingerstick) 172 mg/dL (70-99) White Blood Count 9.8 x10^3/uL (4.0-11.0) Red Blood Count 6.85 x10^6/uL (3.50-5.40) Hemoglobin 13.2 g/dL (12.0-15.5) Hematocrit 41.3 % (36.0-47.0) Mean Corpuscular Volume 60 fL (79-100) Mean Corpuscular Hemoglobin 19 pg (25-35) Mean Corpuscular Hemoglobin Concent 32 g/dL (31-37) Red Cell Distribution Width 17.5 % (11.5-14.5) Platelet Count 279 x10^3/uL (140-400) Neutrophils (%) (Auto) 76 % (31-73) Lymphocytes (%) (Auto) 14 % (24-48) Monocytes (%) (Auto) 10 % (0-9) Eosinophils (%) (Auto) 0 % (0-3) Basophils (%) (Auto) 0 % (0-3) Neutrophils # (Auto) 7.4 x10^3/uL (1.8-7.7) Lymphocytes # (Auto) 1.4 x10^3/uL (1.0-4.8) Monocytes # (Auto) 0.9 x10^3/uL (0.0-1.1) Eosinophils # (Auto) 0.0 x10^3/uL (0.0-0.7) Basophils # (Auto) 0.0 x10^3/uL (0.0-0.2) Segmented Neutrophils % 82 % (35-66) Band Neutrophils % 3 % (0-9) Lymphocytes % 11 % (24-48) Monocytes % 4 % (0-10) Nucleated Red Blood Cells 1 Platelet Estimate Adequate (ADEQUATE) Polychromasia Present Hypochromasia Present Anisocytosis Present Microcytosis Present Sodium Level 144 mmol/L (136-145) Potassium Level 3.5 mmol/L (3.5-5.1) Chloride Level 105 mmol/L (98-107) Carbon Dioxide Level 33 mmol/L (21-32) Anion Gap 6 (6-14) Blood Urea Nitrogen 31 mg/dL (7-20) Creatinine 1.0 mg/dL (0.6-1.0) Estimated GFR (Cockcroft-Gault) 59.4 Glucose Level 139 mg/dL (70-99) Calcium Level 8.1 mg/dL (8.5-10.1) Magnesium Level 2.8 mg/dL (1.8-2.4) O2 Saturation 96 % (92-99) Arterial Blood pH 7.48 (7.35-7.45) Arterial Blood pCO2 at Patient Temp 41 mmHg (35-46) Arterial Blood pO2 at Patient Temp 78 mmHg (75-108) Arterial Blood HCO3 30 mmol/L (21-28) Arterial Blood Base Excess 6 mmol/L (-3-3) FiO2 100 Laboratory Tests Test 04/29/21 12:00 04/29/21 12:40 04/30/21 05:28 04/30/21 06:05 Potassium Level 3.2 mmol/L (3.5-5.1) 3.5 mmol/L (3.5-5.1) Urine Collection Type U cath Urine Color Yellow Urine Clarity Clear Urine pH 5.5 (<5.0-8.0) Urine Specific Bevier 1.020 (1.000-1.030) Urine Protein Negative mg/dL (NEG-TRACE) Urine Glucose (UA) Negative mg/dL (NEG) Urine Ketones (Stick) Negative mg/dL (NEG) Urine Blood Negative (NEG) Urine Nitrite Negative (NEG) Urine Bilirubin Negative (NEG) Urine Urobilinogen Dipstick 0.2 mg/dL (0.2 mg/dL) Urine Leukocyte Esterase Negative (NEG) Urine RBC 0 /HPF (0-2) Urine WBC 1-4 /HPF (0-4) Urine Squamous Epithelial Cells Few /LPF Urine Bacteria 0 /HPF (0-FEW) Urine Hyaline Casts Many /HPF Urine Mucus Mod /LPF Glucose (Fingerstick) 172 mg/dL (70-99) White Blood Count 9.8 x10^3/uL (4.0-11.0) Red Blood Count 6.85 x10^6/uL (3.50-5.40) Hemoglobin 13.2 g/dL (12.0-15.5) Hematocrit 41.3 % (36.0-47.0) Mean Corpuscular Volume 60 fL (79-100) Mean Corpuscular Hemoglobin 19 pg (25-35) Mean Corpuscular Hemoglobin Concent 32 g/dL (31-37) Red Cell Distribution Width 17.5 % (11.5-14.5) Platelet Count 279 x10^3/uL (140-400) Neutrophils (%) (Auto) 76 % (31-73) Lymphocytes (%) (Auto) 14 % (24-48) Monocytes (%) (Auto) 10 % (0-9) Eosinophils (%) (Auto) 0 % (0-3) Basophils (%) (Auto) 0 % (0-3) Neutrophils # (Auto) 7.4 x10^3/uL (1.8-7.7) Lymphocytes # (Auto) 1.4 x10^3/uL (1.0-4.8) Monocytes # (Auto) 0.9 x10^3/uL (0.0-1.1) Eosinophils # (Auto) 0.0 x10^3/uL (0.0-0.7) Basophils # (Auto) 0.0 x10^3/uL (0.0-0.2) Segmented Neutrophils % 82 % (35-66) Band Neutrophils % 3 % (0-9) Lymphocytes % 11 % (24-48) Monocytes % 4 % (0-10) Nucleated Red Blood Cells 1 Platelet Estimate Adequate (ADEQUATE) Polychromasia Present Hypochromasia Present Anisocytosis Present Microcytosis Present Sodium Level 144 mmol/L (136-145) Chloride Level 105 mmol/L (98-107) Carbon Dioxide Level 33 mmol/L (21-32) Anion Gap 6 (6-14) Blood Urea Nitrogen 31 mg/dL (7-20) Creatinine 1.0 mg/dL (0.6-1.0) Estimated GFR (Cockcroft-Gault) 59.4 Glucose Level 139 mg/dL (70-99) Calcium Level 8.1 mg/dL (8.5-10.1) Magnesium Level 2.8 mg/dL (1.8-2.4) Test 04/30/21 09:00 O2 Saturation 96 % (92-99) Arterial Blood pH 7.48 (7.35-7.45) Arterial Blood pCO2 at Patient Temp 41 mmHg (35-46) Arterial Blood pO2 at Patient Temp 78 mmHg (75-108) Arterial Blood HCO3 30 mmol/L (21-28) Arterial Blood Base Excess 6 mmol/L (-3-3) FiO2 100 Medications Active Scripts Medications Dose Route/Sig Max Daily Dose Days Date Category Lisinopril Unknown Strength Tablet Unknown Dose PO DAILY 9/9/21 Reported Comments Chest x-ray reviewed. Diffuse bilateral patchy interstitial infiltrates and cardiomegaly Impression . 1. Acute hypoxemic respiratory failure. 2. COVID-19 viral pneumonia, sepsis. 3. Hypertension. 4. Reportedly, the patient has been vaccinated. 5. Obesity. 6. Abnormal electrolytes. 7. Elevated BUN and creatinine compatible with acute kidney injury. 8. Protein malnutrition, present upon admission. Plan . PLAN: 1. We will continue support with BiPAP. Oxygenation is better. We will closely watch respiratory status. 2. Steroids. Per protocol. 3. Remdesivir per protocol for 5 days. 4. Replace electrolytes as needed. 5. Status post IV fluids. 6. Follow-up labs. Creatinine has improved. 7. DVT/GI prophylaxis. 8. Empiric antibiotics with doxycycline. Discussed with RN and respiratory therapist. OLGA LISA MD Apr 30, 2021 09:49
--- NOTE | 2021-04-30 10:52 | PDOC ---
[facility] PROGRESS NOTE Date of Service DOS: DATE: 04/30/21 TIME: 10:42 Chief Complaint Chief Complaint Acute hypoxic respiratory failure Covid-19 viral pneumonia Sepsis Hypokalemia HTN Morbid obesity MAYRA Protein malnutrition History of Present Illness History of Present Illness HPI: Patient is a 45-year-old female with past medical history of hypertension and morbid obesity who presents with shortness of breath for the past 2 weeks that has gotten worse in the past few days. Patient says she got stung by bees 2 week s ago she did have some dizziness today and felt like she was going to pass out. Patient states she is vaccinated for Covid. Denies any fevers, chest pain, abdominal pain, diarrhea, sick contacts, dysuria or hematuria. 04/29/21: Patient was seen and examined in the ICU today. She is currently on BiPAP 20/10. O2 saturation while being examined is at 89%. Discussed with RN. Patient currently on electrolyte replacement protocol. Chart reviewed. 04/30/21: Patient seen and examined in the ICU. She was resting with NAD. She is on BiPAP 20/10 with FiO2 of 100% and currently satting 96%. She changed to non- rebreather this morning to eat breakfast which she handled well. Her O2 sat did go down to 88% during this but is back up to 96% on the BiPAP now. K+ is now wi thin normal range on today's lab values. Discussed with RN. Chart reviewed. Vitals/I&O Vitals/I&O: Vital Signs Date Time Temp Pulse Resp B/P (MAP) Pulse Ox O2 Delivery O2 Flow Rate FiO2 04/30/21 10:00 54 26 133/83 (100) 97 BiPAP/CPAP 04/30/21 08:00 97.1 97.1 I & O 04/29/21 04/29/21 04/30/21 15:00 23:00 07:00 Intake Total 160 ml 2525.6 ml 200 ml Output Total 500 ml 875 ml 475 ml Balance -340 ml 1650.6 ml -275 ml Physical Exam General: Alert, Oriented X3, Cooperative Heart: Regular rate, Normal S1, Normal S2 Extremities: No edema Skin: No rashes Labs Labs: Laboratory Tests Test 04/29/21 12:00 04/29/21 12:40 04/30/21 05:28 04/30/21 06:05 Potassium Level 3.2 mmol/L (3.5-5.1) 3.5 mmol/L (3.5-5.1) Urine Collection Type U cath Urine Color Yellow Urine Clarity Clear Urine pH 5.5 (<5.0-8.0) Urine Specific Arnold 1.020 (1.000-1.030) Urine Protein Negative mg/dL (NEG-TRACE) Urine Glucose (UA) Negative mg/dL (NEG) Urine Ketones (Stick) Negative mg/dL (NEG) Urine Blood Negative (NEG) Urine Nitrite Negative (NEG) Urine Bilirubin Negative (NEG) Urine Urobilinogen Dipstick 0.2 mg/dL (0.2 mg/dL) Urine Leukocyte Esterase Negative (NEG) Urine RBC 0 /HPF (0-2) Urine WBC 1-4 /HPF (0-4) Urine Squamous Epithelial Cells Few /LPF Urine Bacteria 0 /HPF (0-FEW) Urine Hyaline Casts Many /HPF Urine Mucus Mod /LPF Glucose (Fingerstick) 172 mg/dL (70-99) White Blood Count 9.8 x10^3/uL (4.0-11.0) Red Blood Count 6.85 x10^6/uL (3.50-5.40) Hemoglobin 13.2 g/dL (12.0-15.5) Hematocrit 41.3 % (36.0-47.0) Mean Corpuscular Volume 60 fL (79-100) Mean Corpuscular Hemoglobin 19 pg (25-35) Mean Corpuscular Hemoglobin Concent 32 g/dL (31-37) Red Cell Distribution Width 17.5 % (11.5-14.5) Platelet Count 279 x10^3/uL (140-400) Neutrophils (%) (Auto) 76 % (31-73) Lymphocytes (%) (Auto) 14 % (24-48) Monocytes (%) (Auto) 10 % (0-9) Eosinophils (%) (Auto) 0 % (0-3) Basophils (%) (Auto) 0 % (0-3) Neutrophils # (Auto) 7.4 x10^3/uL (1.8-7.7) Lymphocytes # (Auto) 1.4 x10^3/uL (1.0-4.8) Monocytes # (Auto) 0.9 x10^3/uL (0.0-1.1) Eosinophils # (Auto) 0.0 x10^3/uL (0.0-0.7) Basophils # (Auto) 0.0 x10^3/uL (0.0-0.2) Segmented Neutrophils % 82 % (35-66) Band Neutrophils % 3 % (0-9) Lymphocytes % 11 % (24-48) Monocytes % 4 % (0-10) Nucleated Red Blood Cells 1 Platelet Estimate Adequate (ADEQUATE) Polychromasia Present Hypochromasia Present Anisocytosis Present Microcytosis Present Sodium Level 144 mmol/L (136-145) Chloride Level 105 mmol/L (98-107) Carbon Dioxide Level 33 mmol/L (21-32) Anion Gap 6 (6-14) Blood Urea Nitrogen 31 mg/dL (7-20) Creatinine 1.0 mg/dL (0.6-1.0) Estimated GFR (Cockcroft-Gault) 59.4 Glucose Level 139 mg/dL (70-99) Calcium Level 8.1 mg/dL (8.5-10.1) Magnesium Level 2.8 mg/dL (1.8-2.4) Test 04/30/21 09:00 O2 Saturation 96 % (92-99) Arterial Blood pH 7.48 (7.35-7.45) Arterial Blood pCO2 at Patient Temp 41 mmHg (35-46) Arterial Blood pO2 at Patient Temp 78 mmHg (75-108) Arterial Blood HCO3 30 mmol/L (21-28) Arterial Blood Base Excess 6 mmol/L (-3-3) FiO2 100 Review of Systems Review of Systems: GI: no nausea. no vomiting. Eyes: no changes in vision. no blurry vision. Assessment and Plan Assessmemt and Plan Problems Medical Problems: (1) Acute renal failure Status: Acute (2) Acute respiratory failure Status: Acute (3) Bee sting Status: Acute (4) Hypokalemia Status: Acute Acute hypoxic respiratory failure Covid-19 viral pneumonia Sepsis Hypokalemia HTN Morbid obesity MAYRA Protein malnutrition Plan: 1. ICU monitoring 2. Continue Covid protocol (Remdesivir day 2, SOLU-Medrol, Vitamin C, Zinc, Vitamin B1) 3. Continue on BiPAP 4. Titrate down O2 requirements 5. Continue IV fluids 6. DVT prophylaxis (Lovenox 40mg SQ q 24 hr) 7. Trend labs 8. Full code 9. Appreciate subspecialist input 10. Prognosis guarded CC time 32 minutes Comment Review of Relevant I have reviewed the following items anny (where applicable) has been applied. Medications: Current Medications Medications (Trade) Dose Ordered Sig/Rin Route PRN Reason Start Time Stop Time Status Last Admin Dose Admin Remdesivir 100 mg/ Sodium Chloride 230 ml @ 460 mls/hr Q24H IV 04/29/21 13:00 05/02/21 13:29 04/29/21 13:45 Potassium Chloride/Water 20 ml @ 20 mls/hr Q1H IV 04/29/21 13:30 04/29/21 15:29 DC 04/29/21 16:08 Enoxaparin Sodium (Lovenox 40mg Syringe) 40 mg Q12HR SQ 04/29/21 21:00 04/29/21 21:04 Doxycycline Hyclate 100 mg/ Dextrose 100 ml @ 50 mls/hr Q12HR IV 04/29/21 17:00 04/29/21 16:08 Lactobacillus Rhamnosus (Culturelle) 1 cap BID PO 04/29/21 21:00 04/29/21 21:04 Justifications for Admission Other Justification Acute hypoxic respiratory failure COVID-19 positive test (U07.1, COVID-19) with Acute Pneumonia (J12.89, Other viral pneumonia) (If respiratory failure or sepsis present, add as separate assessment) SANDRA LONGORIA III DO Apr 30, 2021 10:52
[2021-04-30] MEDS: PANTOPRAZOLE IV PUSH 40 MG VIAL. IVP SCH (11:10)
[2021-04-30] MEDS: DOXYCYCLINE HYCLATE 100 MG in IV DEXTROSE 5% 100ML 100 ML IV SCH ×2 (11:11→21:15)
[2021-04-30] MEDS: ZINC SULFATE 220 MG CAPSULE. PO SCH (12:00)
[2021-04-30] MEDS: LACTOBACILLUS RHAMNOSUS GG 1 CAPSULE. PO SCH ×2 (12:00→21:12)
[2021-04-30] MEDS: ENOXAPARIN 40 MG/0.4 ML SYRINGE. SQ SCH ×2 (12:00→21:13)
[2021-04-30] MEDS: ASCORBIC ACID 1,000 MG TABLET PO SCH ×3 (12:00→21:12)
[2021-04-30] MEDS: THIAMINE 100 MG TABLET. PO SCH (12:01)
[2021-04-30] MEDS: REMDESIVIR 100mg in NORMAL SALINE 250ML X 4 DAYS IV SCH (12:37)
[2021-04-30] MEDS: DOCUSATE SODIUM 100 MG CAPSULE. PO PRN (18:17)
[2021-05-01] VITALS (23 sets, daily range): BP systolic 140–171; BP diastolic 86–109
[2021-05-01] MEDS: methylPREDNISolone SOD SUCC PF 40 MG/ML VIAL. IV SCH ×3 (05:37→20:27)
[2021-05-01 05:57] LABS: BASO % 0 % (0-3); EOS % 0 % (0-3); HEMATOCRIT 42.1 % (36.0-47.0); HEMOGLOBIN 13.4 g/dL (12.0-15.5); LYMPH # 1.6 x10^3/uL (1.0-4.8); LYMPH % 15 % (24-48); MEAN CORPUSCULAR HEMOGLOBIN 19 pg (25-35); MEAN CORPUSCULAR HGB CONC 32 g/dL (31-37); MEAN CORPUSCULAR VOLUME 61 fL (79-100); MONO # 0.9 x10^3/uL (0.0-1.1); MONO % 8 % (0-9); NEUT % 76 % (31-73); PLATELET COUNT 284 x10^3/uL (140-400); RED BLOOD COUNT 6.95 x10^6/uL (3.50-5.40); RED CELL DISTRIBUTION WIDTH 17.2 % (11.5-14.5); WHITE BLOOD COUNT 10.5 x10^3/uL (4.0-11.0)
[2021-05-01 05:59] LABS: CALCIUM 8.6 mg/dL (8.5-10.1); CREATININE 0.8 mg/dL (0.6-1.0); GFR 76.9; MAGNESIUM 2.4 mg/dL (1.8-2.4); POTASSIUM 3.9 mmol/L (3.5-5.1)
[2021-05-01] MEDS: PANTOPRAZOLE IV PUSH 40 MG VIAL. IVP SCH (08:28)
[2021-05-01] MEDS: ZINC SULFATE 220 MG CAPSULE. PO SCH (08:35)
[2021-05-01] MEDS: LACTOBACILLUS RHAMNOSUS GG 1 CAPSULE. PO SCH ×2 (08:35→20:27)
[2021-05-01] MEDS: THIAMINE 100 MG TABLET. PO SCH (08:35)
[2021-05-01] MEDS: ENOXAPARIN 40 MG/0.4 ML SYRINGE. SQ SCH ×2 (08:36→20:29)
[2021-05-01] MEDS: ASCORBIC ACID 1,000 MG TABLET PO SCH ×3 (08:42→20:29)
--- NOTE | 2021-05-01 10:38 | PDOC ---
[facility] PROGRESS NOTE Date of Service DOS: DATE: 05/01/21 TIME: 10:25 Chief Complaint Chief Complaint CC: Acute hypoxic respiratory failure Covid-19 viral pneumonia Sepsis Hypokalemia HTN Morbid obesity MAYRA Protein malnutrition History of Present Illness History of Present Illness HPI: Patient is a 45-year-old female with past medical history of hypertension and morbid obesity who presents with shortness of breath for the past 2 weeks that has gotten worse in the past few days. Patient says she got stung by bees 2 weeks ago she did have some dizziness today and felt like she was going to pass out. Patient states she is vaccinated for Covid. Denies any fevers, chest pain, abdominal pain, diarrhea, sick contacts, dysuria or hematuria. 04/29/21: Patient was seen and examined in the ICU today. She is currently on BiPAP 20/10. O2 saturation while being examined is at 89%. Discussed with RN. Patient currently on electrolyte replacement protocol. Chart reviewed. 04/30/21: Patient seen and examined in the ICU. She was resting with NAD. She is on BiPAP 20/10 with FiO2 of 100% and currently satting 96%. She changed to non- rebreather this morning to eat breakfast which she handled well. Her O2 sat did go down to 88% during this but is back up to 96% on the BiPAP now. K+ is now within normal range on today's lab values. Discussed with RN. Chart reviewed. 05/01/21: Patient seen and examined in the ICU today. She is resting with NAD. Making good eye contact and is alert. Patient is on non-rebreather at 100% O2 when she is examined and O2 sat is at 90%. When discussed with RN, she states that patient is predominately on BiPAP but switches to non-rebreather as needed for meals. Last night she had on the non-rebreather around 5:30pm-10:00pm and kept her O2 sat in the low 90's. The BiPAP settings are 20/10 with FiO2 of 100% and a rate of 20. Roa to bedside present. Patient has had a fair appetite and eats about 25-40% of her meals. Chart reviewed. Vitals/I&O Vitals/I&O: Vital Signs Date Time Temp Pulse Resp B/P (MAP) Pulse Ox O2 Delivery O2 Flow Rate FiO2 05/01/21 07:45 98 BiPAP/CPAP 05/01/21 06:00 46 24 151/97 (115) 05/01/21 04:00 97.7 97.7 I & O 04/30/21 04/30/21 05/01/21 15:00 23:00 07:00 Intake Total 540 ml 890 ml 200 ml Output Total 705 ml 550 ml 595 ml Balance -165 ml 340 ml -395 ml Physical Exam General: Alert, Oriented X3, Cooperative Heart: Regular rate, Normal S1, Normal S2 Extremities: No edema Skin: No rashes Labs Labs: Laboratory Tests Test 05/01/21 05:30 White Blood Count 10.5 x10^3/uL (4.0-11.0) Red Blood Count 6.95 x10^6/uL (3.50-5.40) Hemoglobin 13.4 g/dL (12.0-15.5) Hematocrit 42.1 % (36.0-47.0) Mean Corpuscular Volume 61 fL (79-100) Mean Corpuscular Hemoglobin 19 pg (25-35) Mean Corpuscular Hemoglobin Concent 32 g/dL (31-37) Red Cell Distribution Width 17.2 % (11.5-14.5) Platelet Count 284 x10^3/uL (140-400) Neutrophils (%) (Auto) 76 % (31-73) Lymphocytes (%) (Auto) 15 % (24-48) Monocytes (%) (Auto) 8 % (0-9) Eosinophils (%) (Auto) 0 % (0-3) Basophils (%) (Auto) 0 % (0-3) Neutrophils # (Auto) 8.0 x10^3/uL (1.8-7.7) Lymphocytes # (Auto) 1.6 x10^3/uL (1.0-4.8) Monocytes # (Auto) 0.9 x10^3/uL (0.0-1.1) Eosinophils # (Auto) 0.0 x10^3/uL (0.0-0.7) Basophils # (Auto) 0.0 x10^3/uL (0.0-0.2) Sodium Level 139 mmol/L (136-145) Potassium Level 3.9 mmol/L (3.5-5.1) Chloride Level 101 mmol/L (98-107) Carbon Dioxide Level 31 mmol/L (21-32) Anion Gap 7 (6-14) Blood Urea Nitrogen 27 mg/dL (7-20) Creatinine 0.8 mg/dL (0.6-1.0) Estimated GFR (Cockcroft-Gault) 76.9 Glucose Level 134 mg/dL (70-99) Calcium Level 8.6 mg/dL (8.5-10.1) Magnesium Level 2.4 mg/dL (1.8-2.4) Review of Systems Review of Systems: GI: no nausea, no vomiting. Eyes: no changes in vision. no blurry vision. Assessment and Plan Assessmemt and Plan Problems Medical Problems: (1) Acute renal failure Status: Acute (2) Acute respiratory failure Status: Acute (3) Bee sting Status: Acute (4) Hypokalemia Status: Acute Acute hypoxic respiratory failure Covid-19 viral pneumonia Sepsis Hypokalemia HTN Morbid obesity MAYRA Protein malnutrition Plan: 1. ICU monitoring 2. Covid protocol (Remdesivir day 3, SOLU-Medrol, Vitamin C, Zinc, Vitamin B1) 3. Continue IV antibiotics (Doxycycline) 4. Continue on BiPAP and use non-rebreather for meals 5. Trying to titrate down O2 requirements 6. Continue IV fluids 7. Continue DVT prophylaxis (Lovenox 40mg SQ q 24 hr) 8. Trend labs 9. Full code 10. Appreciate subspecialist input 11. Prognosis guarded CC time 32 minutes Comment Review of Relevant I have reviewed the following items anny (where applicable) has been applied. Justifications for Admission Other Justification Acute hypoxic respiratory failure COVID-19 positive test (U07.1, COVID-19) with Acute Pneumonia (J12.89, Other viral pneumonia) (If respiratory failure or sepsis present, add as separate assessment) SANDRA LONGORIA III DO May 01, 2021 10:38
--- NOTE | 2021-05-01 11:22 | PDOC ---
PULMONARY PROGRESS NOTES DATE: 05/01/21 TIME: 11:20 Subjective 100% FiO2 via BiPAP Vitals Vital Signs Date Time Temp Pulse Resp B/P (MAP) Pulse Ox O2 Delivery O2 Flow Rate FiO2 05/01/21 10:00 58 24 151/100 (117) 89 NonRebreather Mask 05/01/21 08:00 98.9 98.9 Comments Visual exam done due to COVID-19 viral pneumonia. Remains on BiPAP. No paradoxical breathing. No obvious skin rash or edema. General: Alert, No acute distress Labs Laboratory Tests Test 04/29/21 12:00 04/29/21 12:40 04/30/21 05:28 04/30/21 06:05 Potassium Level 3.2 mmol/L (3.5-5.1) 3.5 mmol/L (3.5-5.1) Urine Collection Type U cath Urine Color Yellow Urine Clarity Clear Urine pH 5.5 (<5.0-8.0) Urine Specific [place] 1.020 (1.000-1.030) Urine Protein Negative mg/dL (NEG-TRACE) Urine Glucose (UA) Negative mg/dL (NEG) Urine Ketones (Stick) Negative mg/dL (NEG) Urine Blood Negative (NEG) Urine Nitrite Negative (NEG) Urine Bilirubin Negative (NEG) Urine Urobilinogen Dipstick 0.2 mg/dL (0.2 mg/dL) Urine Leukocyte Esterase Negative (NEG) Urine RBC 0 /HPF (0-2) Urine WBC 1-4 /HPF (0-4) Urine Squamous Epithelial Cells Few /LPF Urine Bacteria 0 /HPF (0-FEW) Urine Hyaline Casts Many /HPF Urine Mucus Mod /LPF Glucose (Fingerstick) 172 mg/dL (70-99) White Blood Count 9.8 x10^3/uL (4.0-11.0) Red Blood Count 6.85 x10^6/uL (3.50-5.40) Hemoglobin 13.2 g/dL (12.0-15.5) Hematocrit 41.3 % (36.0-47.0) Mean Corpuscular Volume 60 fL (79-100) Mean Corpuscular Hemoglobin 19 pg (25-35) Mean Corpuscular Hemoglobin Concent 32 g/dL (31-37) Red Cell Distribution Width 17.5 % (11.5-14.5) Platelet Count 279 x10^3/uL (140-400) Neutrophils (%) (Auto) 76 % (31-73) Lymphocytes (%) (Auto) 14 % (24-48) Monocytes (%) (Auto) 10 % (0-9) Eosinophils (%) (Auto) 0 % (0-3) Basophils (%) (Auto) 0 % (0-3) Neutrophils # (Auto) 7.4 x10^3/uL (1.8-7.7) Lymphocytes # (Auto) 1.4 x10^3/uL (1.0-4.8) Monocytes # (Auto) 0.9 x10^3/uL (0.0-1.1) Eosinophils # (Auto) 0.0 x10^3/uL (0.0-0.7) Basophils # (Auto) 0.0 x10^3/uL (0.0-0.2) Segmented Neutrophils % 82 % (35-66) Band Neutrophils % 3 % (0-9) Lymphocytes % 11 % (24-48) Monocytes % 4 % (0-10) Nucleated Red Blood Cells 1 Platelet Estimate Adequate (ADEQUATE) Polychromasia Present Hypochromasia Present Anisocytosis Present Microcytosis Present Sodium Level 144 mmol/L (136-145) Chloride Level 105 mmol/L (98-107) Carbon Dioxide Level 33 mmol/L (21-32) Anion Gap 6 (6-14) Blood Urea Nitrogen 31 mg/dL (7-20) Creatinine 1.0 mg/dL (0.6-1.0) Estimated GFR (Cockcroft-Gault) 59.4 Glucose Level 139 mg/dL (70-99) Calcium Level 8.1 mg/dL (8.5-10.1) Magnesium Level 2.8 mg/dL (1.8-2.4) Test 04/30/21 09:00 05/01/21 05:30 O2 Saturation 96 % (92-99) Arterial Blood pH 7.48 (7.35-7.45) Arterial Blood pCO2 at Patient Temp 41 mmHg (35-46) Arterial Blood pO2 at Patient Temp 78 mmHg (75-108) Arterial Blood HCO3 30 mmol/L (21-28) Arterial Blood Base Excess 6 mmol/L (-3-3) FiO2 100 White Blood Count 10.5 x10^3/uL (4.0-11.0) Red Blood Count 6.95 x10^6/uL (3.50-5.40) Hemoglobin 13.4 g/dL (12.0-15.5) Hematocrit 42.1 % (36.0-47.0) Mean Corpuscular Volume 61 fL (79-100) Mean Corpuscular Hemoglobin 19 pg (25-35) Mean Corpuscular Hemoglobin Concent 32 g/dL (31-37) Red Cell Distribution Width 17.2 % (11.5-14.5) Platelet Count 284 x10^3/uL (140-400) Neutrophils (%) (Auto) 76 % (31-73) Lymphocytes (%) (Auto) 15 % (24-48) Monocytes (%) (Auto) 8 % (0-9) Eosinophils (%) (Auto) 0 % (0-3) Basophils (%) (Auto) 0 % (0-3) Neutrophils # (Auto) 8.0 x10^3/uL (1.8-7.7) Lymphocytes # (Auto) 1.6 x10^3/uL (1.0-4.8) Monocytes # (Auto) 0.9 x10^3/uL (0.0-1.1) Eosinophils # (Auto) 0.0 x10^3/uL (0.0-0.7) Basophils # (Auto) 0.0 x10^3/uL (0.0-0.2) Sodium Level 139 mmol/L (136-145) Potassium Level 3.9 mmol/L (3.5-5.1) Chloride Level 101 mmol/L (98-107) Carbon Dioxide Level 31 mmol/L (21-32) Anion Gap 7 (6-14) Blood Urea Nitrogen 27 mg/dL (7-20) Creatinine 0.8 mg/dL (0.6-1.0) Estimated GFR (Cockcroft-Gault) 76.9 Glucose Level 134 mg/dL (70-99) Calcium Level 8.6 mg/dL (8.5-10.1) Magnesium Level 2.4 mg/dL (1.8-2.4) Laboratory Tests Test 05/01/21 05:30 White Blood Count 10.5 x10^3/uL (4.0-11.0) Red Blood Count 6.95 x10^6/uL (3.50-5.40) Hemoglobin 13.4 g/dL (12.0-15.5) Hematocrit 42.1 % (36.0-47.0) Mean Corpuscular Volume 61 fL (79-100) Mean Corpuscular Hemoglobin 19 pg (25-35) Mean Corpuscular Hemoglobin Concent 32 g/dL (31-37) Red Cell Distribution Width 17.2 % (11.5-14.5) Platelet Count 284 x10^3/uL (140-400) Neutrophils (%) (Auto) 76 % (31-73) Lymphocytes (%) (Auto) 15 % (24-48) Monocytes (%) (Auto) 8 % (0-9) Eosinophils (%) (Auto) 0 % (0-3) Basophils (%) (Auto) 0 % (0-3) Neutrophils # (Auto) 8.0 x10^3/uL (1.8-7.7) Lymphocytes # (Auto) 1.6 x10^3/uL (1.0-4.8) Monocytes # (Auto) 0.9 x10^3/uL (0.0-1.1) Eosinophils # (Auto) 0.0 x10^3/uL (0.0-0.7) Basophils # (Auto) 0.0 x10^3/uL (0.0-0.2) Sodium Level 139 mmol/L (136-145) Potassium Level 3.9 mmol/L (3.5-5.1) Chloride Level 101 mmol/L (98-107) Carbon Dioxide Level 31 mmol/L (21-32) Anion Gap 7 (6-14) Blood Urea Nitrogen 27 mg/dL (7-20) Creatinine 0.8 mg/dL (0.6-1.0) Estimated GFR (Cockcroft-Gault) 76.9 Glucose Level 134 mg/dL (70-99) Calcium Level 8.6 mg/dL (8.5-10.1) Magnesium Level 2.4 mg/dL (1.8-2.4) Medications Active Scripts Medications Dose Route/Sig Max Daily Dose Days Date Category Lisinopril Unknown Strength Tablet Unknown Dose PO DAILY 04/28/21 Reported Comments Chest x-ray reviewed. Diffuse bilateral patchy interstitial infiltrates and cardiomegaly Impression . 1. Acute hypoxemic respiratory failure. 2. COVID-19 viral pneumonia, sepsis. 3. Hypertension. 4. Reportedly, the patient has been vaccinated. 5. Obesity. 6. Abnormal electrolytes. 7. Elevated BUN and creatinine compatible with acute kidney injury. 8. Protein malnutrition, present upon admission. Plan . PLAN: 1. We will continue support with BiPAP. Oxygenation is better. We will closely watch respiratory status. 2. Steroids. Per protocol. 3. Remdesivir per protocol for 5 days. 4. Replace electrolytes as needed. 5. Status post IV fluids. 6. Follow-up labs. Creatinine has improved. 7. DVT/GI prophylaxis. 8. Empiric antibiotics with doxycycline. Discussed with RN and respiratory therapist. OLGA LISA MD May 01, 2021 11:22
[2021-05-01] MEDS: DOXYCYCLINE HYCLATE 100 MG in IV DEXTROSE 5% 100ML 100 ML IV SCH ×2 (11:43→20:27)
[2021-05-01] MEDS: REMDESIVIR 100mg in NORMAL SALINE 250ML X 4 DAYS IV SCH (12:52)
[2021-05-01] MEDS: DOCUSATE SODIUM 100 MG CAPSULE. PO PRN (17:44)
[2021-05-01] MEDS ORDERED: hydrALAZINE 20 MG/ML VIAL. IVP PRN (19:45)
[2021-05-01] MEDS: LISINOPRIL 10 MG TABLET PO SCH (20:27)
[2021-05-02] VITALS (12 sets, daily range): BP systolic 136–170; BP diastolic 81–106
[2021-05-02] MEDS: methylPREDNISolone SOD SUCC PF 40 MG/ML VIAL. IV SCH (04:58)
[2021-05-02 06:21] LABS: CALCIUM 8.9 mg/dL (8.5-10.1); CREATININE 0.8 mg/dL (0.6-1.0); GFR 76.9; POTASSIUM 5.1 mmol/L (3.5-5.1)
[2021-05-02 07:09] LABS: BASO % 0 % (0-3); EOS % 0 % (0-3); HEMATOCRIT 44.1 % (36.0-47.0); LYMPH # 1.5 x10^3/uL (1.0-4.8); LYMPH % 14 % (24-48); MEAN CORPUSCULAR HEMOGLOBIN 20 pg (25-35); MEAN CORPUSCULAR HGB CONC 32 g/dL (31-37); MEAN CORPUSCULAR VOLUME 61 fL (79-100); MONO # 1.1 x10^3/uL (0.0-1.1); MONO % 10 % (0-9); NEUT # 8.1 x10^3/uL (1.8-7.7); NEUT % 76 % (31-73); PLATELET COUNT 266 x10^3/uL (140-400); RED CELL DISTRIBUTION WIDTH 17.2 % (11.5-14.5); WHITE BLOOD COUNT 10.7 x10^3/uL (4.0-11.0)
--- NOTE | 2021-05-02 08:17 | PDOC ---
[facility] [facility] PROGRESS NOTE Date of Service DOS: DATE: 05/02/21 TIME: 08:08 Chief Complaint Chief Complaint CC: Acute hypoxic respiratory failure Covid-19 viral pneumonia Sepsis Hypokalemia HTN Morbid obesity MAYRA Protein malnutrition History of Present Illness History of Present Illness HPI: Patient is a 45-year-old female with past medical history of hypertension and morbid obesity who presents with shortness of breath for the past 2 weeks that has gotten worse in the past few days. Patient says she got stung by bees 2 weeks ago she did have some dizziness today and felt like she was going to pass out. Patient states she is vaccinated for Covid. Denies any fevers, chest pain, abdominal pain, diarrhea, sick contacts, dysuria or hematuria. 04/29/21: Patient was seen and examined in the ICU today. She is currently on BiPAP 20/10. O2 saturation while being examined is at 89%. Discussed with RN. Patient currently on electrolyte replacement protocol. Chart reviewed. 04/30/21: Patient seen and examined in the ICU. She was resting with NAD. She is on BiPAP 20/10 with FiO2 of 100% and currently satting 96%. She changed to non- rebreather this morning to eat breakfast which she handled well. Her O2 sat did go down to 88% during this but is back up to 96% on the BiPAP now. K+ is now within normal range on today's lab values. Discussed with RN. Chart reviewed. 05/01/21: Patient seen and examined in the ICU today. She is resting with NAD. Making good eye contact and is alert. Patient is on non-rebreather at 100% O2 when she is examined and O2 sat is at 90%. When discussed with RN, she states that patient is predominately on BiPAP but switches to non-rebreather as needed for meals. Last night she had on the non-rebreather around 5:30pm-10:00pm and kept her O2 sat in the low 90's. The BiPAP settings are 20/10 with FiO2 of 100% and a rate of 20. Roa to bedside present. Patient has had a fair appetite and eats about 25-40% of her meals. Chart reviewed. 05/02/2021: Patient remains in ICU on BiPAP with FiO2 100%. Afebrile. Last day remdesivir today. We will continue treatment with empiric antibiotics and steroids; will change to Decadron 6 mg daily per standard of care. Chest x-ray from 04/29 showed good diffuse bilateral airspace opacities; will repeat chest x- ray today. Critical care time 30 minutes spent reviewing charts, reviewing labs, reviewing imaging, discussion with RN. Vitals/I&O Vitals/I&O: Vital Signs Date Time Temp Pulse Resp B/P (MAP) Pulse Ox O2 Delivery O2 Flow Rate FiO2 05/02/21 06:01 40 24 166/94 (118) 98 BiPAP/CPAP 05/02/21 04:01 97.4 97.4 I & O 05/01/21 05/01/21 05/02/21 15:00 23:00 07:00 Intake Total 800 ml 570 ml 350 ml Output Total 850 ml 1300 ml 575 ml Balance -50 ml -730 ml -225 ml Physical Exam General: Alert, Oriented X3, Cooperative, mild distress Heart: Regular rate, Normal S1, Normal S2 Lungs: Crackles Abdomen: Soft, No tenderness Extremities: No edema Skin: No rashes, No breakdown Labs Labs: Laboratory Tests Test 05/02/21 05:50 White Blood Count 10.7 x10^3/uL (4.0-11.0) Red Blood Count 7.20 x10^6/uL (3.50-5.40) Hemoglobin 14.0 g/dL (12.0-15.5) Hematocrit 44.1 % (36.0-47.0) Mean Corpuscular Volume 61 fL (79-100) Mean Corpuscular Hemoglobin 20 pg (25-35) Mean Corpuscular Hemoglobin Concent 32 g/dL (31-37) Red Cell Distribution Width 17.2 % (11.5-14.5) Platelet Count 266 x10^3/uL (140-400) Neutrophils (%) (Auto) 76 % (31-73) Lymphocytes (%) (Auto) 14 % (24-48) Monocytes (%) (Auto) 10 % (0-9) Eosinophils (%) (Auto) 0 % (0-3) Basophils (%) (Auto) 0 % (0-3) Neutrophils # (Auto) 8.1 x10^3/uL (1.8-7.7) Lymphocytes # (Auto) 1.5 x10^3/uL (1.0-4.8) Monocytes # (Auto) 1.1 x10^3/uL (0.0-1.1) Eosinophils # (Auto) 0.0 x10^3/uL (0.0-0.7) Basophils # (Auto) 0.0 x10^3/uL (0.0-0.2) Sodium Level 136 mmol/L (136-145) Potassium Level 5.1 mmol/L (3.5-5.1) Chloride Level 98 mmol/L (98-107) Carbon Dioxide Level 33 mmol/L (21-32) Anion Gap 5 (6-14) Blood Urea Nitrogen 24 mg/dL (7-20) Creatinine 0.8 mg/dL (0.6-1.0) Estimated GFR (Cockcroft-Gault) 76.9 Glucose Level 120 mg/dL (70-99) Calcium Level 8.9 mg/dL (8.5-10.1) Assessment and Plan Assessmemt and Plan Problems Medical Problems: (1) Acute renal failure Status: Acute (2) Acute respiratory failure Status: Acute (3) Bee sting Status: Acute (4) Hypokalemia Status: Acute Comment Review of Relevant I have reviewed the following items anny (where applicable) has been applied. Medications: Current Medications Medications (Trade) Dose Ordered Sig/Rin Route PRN Reason Start Time Stop Time Status Last Admin Dose Admin Lisinopril (Prinivil) 10 mg DAILY PO 05/01/21 21:00 05/01/21 20:27 Justifications for Admission Other Justification Acute hypoxic respiratory failure COVID-19 positive test (U07.1, COVID-19) with Acute Pneumonia (J12.89, Other viral pneumonia) (If respiratory failure or sepsis present, add as separate assessment) ALICE FELIPE MD May 02, 2021 08:17
[2021-05-02 09:09] LABS: BASE EXCESS ABG 5 mmol/L (-3-3); HCO3 ABG 29 mmol/L (21-28); PCO2 ABG 41 mmHg (35-46); PO2 ABG 119 mmHg (75-108); SAT O2 ABG 98 % (92-99)
--- NOTE | 2021-05-02 09:23 | RAD ---
EXAM: Chest, single view. HISTORY: Covid 19. COMPARISON: 04/29/2021 FINDINGS: A frontal view of the chest is obtained. There has been minimal interval decrease in diffus e lower lobe predominant interstitial infiltrate. There is no consolidation, pleural effusion or pneu mothorax. There is a stable prominent cardiac silhouette. There is a right PICC with the tip overlyin g expected location of the superior cavoatrial junction. IMPRESSION: Slight interval decrease in diffuse lower lobe predominant interstitial infiltrate. Electronically signed by: Mandy Crowley MD (05/02/2021 9:21 AM) [id number]
[2021-05-02 10:13] LABS: FIO2 ABG 100% BIPAP
[2021-05-02] MEDS: DOXYCYCLINE HYCLATE 100 MG in IV DEXTROSE 5% 100ML 100 ML IV SCH ×2 (10:55→20:51)
[2021-05-02] MEDS: ZINC SULFATE 220 MG CAPSULE. PO SCH (10:56)
[2021-05-02] MEDS: LISINOPRIL 10 MG TABLET PO SCH (10:56)
[2021-05-02] MEDS: PANTOPRAZOLE IV PUSH 40 MG VIAL. IVP SCH (10:57)
[2021-05-02] MEDS: THIAMINE 100 MG TABLET. PO SCH (10:57)
[2021-05-02] MEDS: LACTOBACILLUS RHAMNOSUS GG 1 CAPSULE. PO SCH ×2 (10:57→20:51)
[2021-05-02] MEDS: ASCORBIC ACID 1,000 MG TABLET PO SCH ×3 (10:57→20:52)
[2021-05-02] MEDS: ENOXAPARIN 40 MG/0.4 ML SYRINGE. SQ SCH ×2 (10:58→20:52)
[2021-05-02] MEDS: DEXAMETHASONE SOD PHOS 4 MG/ML VIAL IVP SCH (10:58)
--- NOTE | 2021-05-02 12:12 | PDOC ---
PULMONARY PROGRESS NOTES DATE: 05/02/21 TIME: 12:10 Subjective 100% FiO2 via nonrebreather mask Tolerating well Vitals Vital Signs Date Time Temp Pulse Resp B/P (MAP) Pulse Ox O2 Delivery O2 Flow Rate FiO2 05/02/21 11:00 97.5 59 22 146/95 (112) 91 BiPAP/CPAP 97.5 Comments Visual exam done due to COVID-19 viral pneumonia. Remains on BiPAP. No paradoxical breathing. No obvious skin rash or edema. General: Alert, No acute distress Lungs: Crackles Labs Laboratory Tests Test 05/01/21 05:30 05/02/21 05:50 05/02/21 09:30 White Blood Count 10.5 x10^3/uL (4.0-11.0) 10.7 x10^3/uL (4.0-11.0) Red Blood Count 6.95 x10^6/uL (3.50-5.40) 7.20 x10^6/uL (3.50-5.40) Hemoglobin 13.4 g/dL (12.0-15.5) 14.0 g/dL (12.0-15.5) Hematocrit 42.1 % (36.0-47.0) 44.1 % (36.0-47.0) Mean Corpuscular Volume 61 fL (79-100) 61 fL (79-100) Mean Corpuscular Hemoglobin 19 pg (25-35) 20 pg (25-35) Mean Corpuscular Hemoglobin Concent 32 g/dL (31-37) 32 g/dL (31-37) Red Cell Distribution Width 17.2 % (11.5-14.5) 17.2 % (11.5-14.5) Platelet Count 284 x10^3/uL (140-400) 266 x10^3/uL (140-400) Neutrophils (%) (Auto) 76 % (31-73) 76 % (31-73) Lymphocytes (%) (Auto) 15 % (24-48) 14 % (24-48) Monocytes (%) (Auto) 8 % (0-9) 10 % (0-9) Eosinophils (%) (Auto) 0 % (0-3) 0 % (0-3) Basophils (%) (Auto) 0 % (0-3) 0 % (0-3) Neutrophils # (Auto) 8.0 x10^3/uL (1.8-7.7) 8.1 x10^3/uL (1.8-7.7) Lymphocytes # (Auto) 1.6 x10^3/uL (1.0-4.8) 1.5 x10^3/uL (1.0-4.8) Monocytes # (Auto) 0.9 x10^3/uL (0.0-1.1) 1.1 x10^3/uL (0.0-1.1) Eosinophils # (Auto) 0.0 x10^3/uL (0.0-0.7) 0.0 x10^3/uL (0.0-0.7) Basophils # (Auto) 0.0 x10^3/uL (0.0-0.2) 0.0 x10^3/uL (0.0-0.2) Sodium Level 139 mmol/L (136-145) 136 mmol/L (136-145) Potassium Level 3.9 mmol/L (3.5-5.1) 5.1 mmol/L (3.5-5.1) Chloride Level 101 mmol/L (98-107) 98 mmol/L (98-107) Carbon Dioxide Level 31 mmol/L (21-32) 33 mmol/L (21-32) Anion Gap 7 (6-14) 5 (6-14) Blood Urea Nitrogen 27 mg/dL (7-20) 24 mg/dL (7-20) Creatinine 0.8 mg/dL (0.6-1.0) 0.8 mg/dL (0.6-1.0) Estimated GFR (Cockcroft-Gault) 76.9 76.9 Glucose Level 134 mg/dL (70-99) 120 mg/dL (70-99) Calcium Level 8.6 mg/dL (8.5-10.1) 8.9 mg/dL (8.5-10.1) Magnesium Level 2.4 mg/dL (1.8-2.4) O2 Saturation 98 % (92-99) Arterial Blood pH 7.47 (7.35-7.45) Arterial Blood pCO2 at Patient Temp 41 mmHg (35-46) Arterial Blood pO2 at Patient Temp 119 mmHg (75-108) Arterial Blood HCO3 29 mmol/L (21-28) Arterial Blood Base Excess 5 mmol/L (-3-3) FiO2 100% bipap Laboratory Tests Test 05/02/21 05:50 05/02/21 09:30 White Blood Count 10.7 x10^3/uL (4.0-11.0) Red Blood Count 7.20 x10^6/uL (3.50-5.40) Hemoglobin 14.0 g/dL (12.0-15.5) Hematocrit 44.1 % (36.0-47.0) Mean Corpuscular Volume 61 fL (79-100) Mean Corpuscular Hemoglobin 20 pg (25-35) Mean Corpuscular Hemoglobin Concent 32 g/dL (31-37) Red Cell Distribution Width 17.2 % (11.5-14.5) Platelet Count 266 x10^3/uL (140-400) Neutrophils (%) (Auto) 76 % (31-73) Lymphocytes (%) (Auto) 14 % (24-48) Monocytes (%) (Auto) 10 % (0-9) Eosinophils (%) (Auto) 0 % (0-3) Basophils (%) (Auto) 0 % (0-3) Neutrophils # (Auto) 8.1 x10^3/uL (1.8-7.7) Lymphocytes # (Auto) 1.5 x10^3/uL (1.0-4.8) Monocytes # (Auto) 1.1 x10^3/uL (0.0-1.1) Eosinophils # (Auto) 0.0 x10^3/uL (0.0-0.7) Basophils # (Auto) 0.0 x10^3/uL (0.0-0.2) Sodium Level 136 mmol/L (136-145) Potassium Level 5.1 mmol/L (3.5-5.1) Chloride Level 98 mmol/L (98-107) Carbon Dioxide Level 33 mmol/L (21-32) Anion Gap 5 (6-14) Blood Urea Nitrogen 24 mg/dL (7-20) Creatinine 0.8 mg/dL (0.6-1.0) Estimated GFR (Cockcroft-Gault) 76.9 Glucose Level 120 mg/dL (70-99) Calcium Level 8.9 mg/dL (8.5-10.1) O2 Saturation 98 % (92-99) Arterial Blood pH 7.47 (7.35-7.45) Arterial Blood pCO2 at Patient Temp 41 mmHg (35-46) Arterial Blood pO2 at Patient Temp 119 mmHg (75-108) Arterial Blood HCO3 29 mmol/L (21-28) Arterial Blood Base Excess 5 mmol/L (-3-3) FiO2 100% bipap Medications Active Scripts Medications Dose Route/Sig Max Daily Dose Days Date Category Lisinopril Unknown Strength Tablet Unknown Dose PO DAILY 04/28/21 Reported Comments Chest x-ray reviewed. Diffuse bilateral patchy interstitial infiltrates and cardiomegaly Impression . 1. Acute hypoxemic respiratory failure. 2. COVID-19 viral pneumonia, sepsis. 3. Hypertension. 4. Reportedly, the patient has been vaccinated. 5. Obesity. 6. Abnormal electrolytes. 7. Elevated BUN and creatinine compatible with acute kidney injury. 8. Protein malnutrition, present upon admission. Plan . PLAN: 1. We will continue support with nonrebreather mask.. Oxygenation is better. We will closely watch respiratory status. 2. Steroids. Per protocol. 3. Remdesivir per protocol for 5 days. 4. Replace electrolytes as needed. 5. Status post IV fluids. 6. Follow-up labs. Creatinine has improved. 7. DVT/GI prophylaxis. 8. Empiric antibiotics with doxycycline. Discussed with RN and respiratory therapist. OLGA LISA MD May 02, 2021 12:12
[2021-05-02] MEDS: REMDESIVIR 100mg in NORMAL SALINE 250ML X 4 DAYS IV SCH (13:29)
--- NOTE | 2021-05-02 14:55 | NUR ---
SS following up with discharge planning. SS reviewed pt chart and discussed with pt RN. Pt is currently on non-rebreather at 100%. COVID19 positive. Pt on IV Decadron and IV Doxycycline. Pt transferred to room 656 today. SS will continue to follow for discharge planning.
[2021-05-03] VITALS (7 sets, daily range): BP systolic 117–145; BP diastolic 74–94
[2021-05-03 05:55] LABS: BASO % 0 % (0-3); EOS # 0.1 x10^3/uL (0.0-0.7); EOS % 1 % (0-3); HEMATOCRIT 45.8 % (36.0-47.0); HEMOGLOBIN 14.6 g/dL (12.0-15.5); LYMPH # 1.8 x10^3/uL (1.0-4.8); LYMPH % 14 % (24-48); MEAN CORPUSCULAR HEMOGLOBIN 19 pg (25-35); MEAN CORPUSCULAR HGB CONC 32 g/dL (31-37); MEAN CORPUSCULAR VOLUME 61 fL (79-100); MONO % 8 % (0-9); NEUT # 9.9 x10^3/uL (1.8-7.7); NEUT % 76 % (31-73); PLATELET COUNT 207 x10^3/uL (140-400); RED BLOOD COUNT 7.52 x10^6/uL (3.50-5.40); RED CELL DISTRIBUTION WIDTH 17.4 % (11.5-14.5); WHITE BLOOD COUNT 12.9 x10^3/uL (4.0-11.0)
[2021-05-03 06:06] LABS: CALCIUM 8.8 mg/dL (8.5-10.1); CREATININE 0.7 mg/dL (0.6-1.0); GFR 89.7; POTASSIUM 3.5 mmol/L (3.5-5.1)
--- NOTE | 2021-05-03 08:29 | PDOC ---
PROGRESS NOTES Date of Service: DATE: 05/03/21 TIME: 08:29 Chief Complaint Chief Complaint CC: Acute hypoxic respiratory failure Covid-19 viral pneumonia Sepsis Hypokalemia HTN Morbid obesity MAYRA Protein malnutrition History of Present Illness History of Present Illness HPI: Patient is a 45-year-old female with past medical history of hypertension and morbid obesity who presents with shortness of breath for the past 2 weeks that has gotten worse in the past few days. Patient says she got stung by bees 2 weeks ago she did have some dizziness today and felt like she was going to pass out. Patient states she is vaccinated for Covid. Denies any fevers, chest pain, abdominal pain, diarrhea, sick contacts, dysuria or hematuria. 04/29/21: Patient was seen and examined in the ICU today. She is currently on BiPAP 20/10. O2 saturation while being examined is at 89%. Discussed with RN. Patient currently on electrolyte replacement protocol. Chart reviewed. 04/30/21: Patient seen and examined in the ICU. She was resting with NAD. She is on BiPAP 20/10 with FiO2 of 100% and currently satting 96%. She changed to non- rebreather this morning to eat breakfast which she handled well. Her O2 sat did go down to 88% during this but is back up to 96% on the BiPAP now. K+ is now within normal range on today's lab values. Discussed with RN. Chart reviewed. 05/01/21: Patient seen and examined in the ICU today. She is resting with NAD. Making good eye contact and is alert. Patient is on non-rebreather at 100% O2 when she is examined and O2 sat is at 90%. When discussed with RN, she states that patient is predominately on BiPAP but switches to non-rebreather as needed for meals. Last night she had on the non-rebreather around 5:30pm-10:00pm and kept her O2 sat in the low 90's. The BiPAP settings are 20/10 with FiO2 of 100% and a rate of 20. Roa to bedside present. Patient has had a fair appetite and eats about 25-40% of her meals. Chart reviewed. 05/02/2021: Patient remains in ICU on BiPAP with FiO2 100%. Afebrile. Last day remdesivir today. We will continue treatment with empiric antibiotics and steroids; will change to Decadron 6 mg daily per standard of care. Chest x-ray from 04/29 showed good diffuse bilateral airspace opacities; will repeat chest x- ray today. Critical care time 30 minutes spent reviewing charts, reviewing labs, reviewing imaging, discussion with RN. 05/03/2021: ferritin 3264 FiO2 100%. Afebrile. Last day remdesivir 05-02 . We will continue treatment with empiric antibiotics and steroids; will change to Decadron 6 mg daily per standard of care. Chest x-ray from 04/29 showed good diffuse bilateral airspace opacities; will repeat chest x-ray today. 36 minutes spent reviewing charts, reviewing labs, reviewing imaging, discussion with RN. 100% FiO2 via non-rebreather mask Slight interval decrease in diffuse lower lobe predominant interstitial infiltrate. cxr 05-02 acute vasomotor nephropathy improved D/W RN Vitals Vitals Vital Signs Date Time Temp Pulse Resp B/P (MAP) Pulse Ox O2 Delivery O2 Flow Rate FiO2 05/03/21 03:28 95.5 72 20 144/94 (111) 90 NonRebreather Mask 15.0 95.5 Physical Exam General: Alert, Oriented X3, Cooperative, mild distress Heart: Regular rate, Normal S1, Normal S2 Lungs: Crackles Abdomen: Soft, No tenderness Extremities: No edema Skin: No rashes, No breakdown Labs LABS PATIENT: ITZEL WALLACE ACCOUNT: [id number] : 1975 LOCATION: [address] [place] [address] AGE: 45 SEX: F EXAM STATUS: ADM IN ORD. PHYSICIAN: ALICE FELIPE MD REASON: COVID-19 pneumonia PROCEDURE: CHEST AP ONLY EXAM: Chest, single view. HISTORY: Covid 19. COMPARISON: 04/29/2021 FINDINGS: A frontal view of the chest is obtained. There has been minimal interval decrease in diffuse lower lobe predominant interstitial infiltrate. There is no consolidation, pleural effusion or pneumothorax. There is a stable prominent cardiac silhouette. There is a right PICC with the tip overlying expec lizet location of the superior cavoatrial junction. IMPRESSION: Slight interval decrease in diffuse lower lobe predominant inters titial infiltrate. Electronically signed by: Mandy Rivas MD (05/02/2021 9:21 AM) [id number] DICTATED and SIGNED BY: MANDY RIVAS MD DATE: 05/02/21 [id number] Laboratory Tests Test 05/02/21 09:30 05/03/21 05:30 O2 Saturation 98 % (92-99) Arterial Blood pH 7.47 (7.35-7.45) Arterial Blood pCO2 at Patient Temp 41 mmHg (35-46) Arterial Blood pO2 at Patient Temp 119 mmHg (75-108) Arterial Blood HCO3 29 mmol/L (21-28) Arterial Blood Base Excess 5 mmol/L (-3-3) FiO2 100% bipap White Blood Count 12.9 x10^3/uL (4.0-11.0) Red Blood Count 7.52 x10^6/uL (3.50-5.40) Hemoglobin 14.6 g/dL (12.0-15.5) Hematocrit 45.8 % (36.0-47.0) Mean Corpuscular Volume 61 fL (79-100) Mean Corpuscular Hemoglobin 19 pg (25-35) Mean Corpuscular Hemoglobin Concent 32 g/dL (31-37) Red Cell Distribution Width 17.4 % (11.5-14.5) Platelet Count 207 x10^3/uL (140-400) Neutrophils (%) (Auto) 76 % (31-73) Lymphocytes (%) (Auto) 14 % (24-48) Monocytes (%) (Auto) 8 % (0-9) Eosinophils (%) (Auto) 1 % (0-3) Basophils (%) (Auto) 0 % (0-3) Neutrophils # (Auto) 9.9 x10^3/uL (1.8-7.7) Lymphocytes # (Auto) 1.8 x10^3/uL (1.0-4.8) Monocytes # (Auto) 1.0 x10^3/uL (0.0-1.1) Eosinophils # (Auto) 0.1 x10^3/uL (0.0-0.7) Basophils # (Auto) 0.0 x10^3/uL (0.0-0.2) Sodium Level 137 mmol/L (136-145) Potassium Level 3.5 mmol/L (3.5-5.1) Chloride Level 100 mmol/L (98-107) Carbon Dioxide Level 30 mmol/L (21-32) Anion Gap 7 (6-14) Blood Urea Nitrogen 24 mg/dL (7-20) Creatinine 0.7 mg/dL (0.6-1.0) Estimated GFR (Cockcroft-Gault) 89.7 Glucose Level 77 mg/dL (70-99) Calcium Level 8.8 mg/dL (8.5-10.1) Assessment and Plan Assessmemt and Plan Problems Medical Problems: (1) Acute renal failure Status: Acute (2) Acute respiratory failure Status: Acute (3) Bee sting Status: Acute (4) Hypokalemia Status: Acute Comment Review of Relevant I have reviewed the following items anny (where applicable) has been applied. Labs Laboratory Tests Test 05/02/21 05:50 05/02/21 09:30 05/03/21 05:30 White Blood Count 10.7 x10^3/uL (4.0-11.0) 12.9 x10^3/uL (4.0-11.0) Red Blood Count 7.20 x10^6/uL (3.50-5.40) 7.52 x10^6/uL (3.50-5.40) Hemoglobin 14.0 g/dL (12.0-15.5) 14.6 g/dL (12.0-15.5) Hematocrit 44.1 % (36.0-47.0) 45.8 % (36.0-47.0) Mean Corpuscular Volume 61 fL (79-100) 61 fL (79-100) Mean Corpuscular Hemoglobin 20 pg (25-35) 19 pg (25-35) Mean Corpuscular Hemoglobin Concent 32 g/dL (31-37) 32 g/dL (31-37) Red Cell Distribution Width 17.2 % (11.5-14.5) 17.4 % (11.5-14.5) Platelet Count 266 x10^3/uL (140-400) 207 x10^3/uL (140-400) Neutrophils (%) (Auto) 76 % (31-73) 76 % (31-73) Lymphocytes (%) (Auto) 14 % (24-48) 14 % (24-48) Monocytes (%) (Auto) 10 % (0-9) 8 % (0-9) Eosinophils (%) (Auto) 0 % (0-3) 1 % (0-3) Basophils (%) (Auto) 0 % (0-3) 0 % (0-3) Neutrophils # (Auto) 8.1 x10^3/uL (1.8-7.7) 9.9 x10^3/uL (1.8-7.7) Lymphocytes # (Auto) 1.5 x10^3/uL (1.0-4.8) 1.8 x10^3/uL (1.0-4.8) Monocytes # (Auto) 1.1 x10^3/uL (0.0-1.1) 1.0 x10^3/uL (0.0-1.1) Eosinophils # (Auto) 0.0 x10^3/uL (0.0-0.7) 0.1 x10^3/uL (0.0-0.7) Basophils # (Auto) 0.0 x10^3/uL (0.0-0.2) 0.0 x10^3/uL (0.0-0.2) Sodium Level 136 mmol/L (136-145) 137 mmol/L (136-145) Potassium Level 5.1 mmol/L (3.5-5.1) 3.5 mmol/L (3.5-5.1) Chloride Level 98 mmol/L (98-107) 100 mmol/L (98-107) Carbon Dioxide Level 33 mmol/L (21-32) 30 mmol/L (21-32) Anion Gap 5 (6-14) 7 (6-14) Blood Urea Nitrogen 24 mg/dL (7-20) 24 mg/dL (7-20) Creatinine 0.8 mg/dL (0.6-1.0) 0.7 mg/dL (0.6-1.0) Estimated GFR (Cockcroft-Gault) 76.9 89.7 Glucose Level 120 mg/dL (70-99) 77 mg/dL (70-99) Calcium Level 8.9 mg/dL (8.5-10.1) 8.8 mg/dL (8.5-10.1) O2 Saturation 98 % (92-99) Arterial Blood pH 7.47 (7.35-7.45) Arterial Blood pCO2 at Patient Temp 41 mmHg (35-46) Arterial Blood pO2 at Patient Temp 119 mmHg (75-108) Arterial Blood HCO3 29 mmol/L (21-28) Arterial Blood Base Excess 5 mmol/L (-3-3) FiO2 100% bipap Laboratory Tests Test 05/02/21 09:30 05/03/21 05:30 O2 Saturation 98 % (92-99) Arterial Blood pH 7.47 (7.35-7.45) Arterial Blood pCO2 at Patient Temp 41 mmHg (35-46) Arterial Blood pO2 at Patient Temp 119 mmHg (75-108) Arterial Blood HCO3 29 mmol/L (21-28) Arterial Blood Base Excess 5 mmol/L (-3-3) FiO2 100% bipap White Blood Count 12.9 x10^3/uL (4.0-11.0) Red Blood Count 7.52 x10^6/uL (3.50-5.40) Hemoglobin 14.6 g/dL (12.0-15.5) Hematocrit 45.8 % (36.0-47.0) Mean Corpuscular Volume 61 fL (79-100) Mean Corpuscular Hemoglobin 19 pg (25-35) Mean Corpuscular Hemoglobin Concent 32 g/dL (31-37) Red Cell Distribution Width 17.4 % (11.5-14.5) Platelet Count 207 x10^3/uL (140-400) Neutrophils (%) (Auto) 76 % (31-73) Lymphocytes (%) (Auto) 14 % (24-48) Monocytes (%) (Auto) 8 % (0-9) Eosinophils (%) (Auto) 1 % (0-3) Basophils (%) (Auto) 0 % (0-3) Neutrophils # (Auto) 9.9 x10^3/uL (1.8-7.7) Lymphocytes # (Auto) 1.8 x10^3/uL (1.0-4.8) Monocytes # (Auto) 1.0 x10^3/uL (0.0-1.1) Eosinophils # (Auto) 0.1 x10^3/uL (0.0-0.7) Basophils # (Auto) 0.0 x10^3/uL (0.0-0.2) Sodium Level 137 mmol/L (136-145) Potassium Level 3.5 mmol/L (3.5-5.1) Chloride Level 100 mmol/L (98-107) Carbon Dioxide Level 30 mmol/L (21-32) Anion Gap 7 (6-14) Blood Urea Nitrogen 24 mg/dL (7-20) Creatinine 0.7 mg/dL (0.6-1.0) Estimated GFR (Cockcroft-Gault) 89.7 Glucose Level 77 mg/dL (70-99) Calcium Level 8.8 mg/dL (8.5-10.1) Microbiology 04/27/21 Blood Culture - Final, Complete NO GROWTH AFTER 5 DAYS Medications Current Medications Dexamethasone Sodium Phosphate (Decadron) 10 mg 1X ONCE IV Last administered on 04/27/21at 20:04; Start 04/27/21 at 19:00; Stop 04/27/21 at 19:10; Status DC Piperacillin Sod/ Tazobactam Sod 3.375 gm/Sodium Chloride 50 ml @ 100 mls/hr 1X ONCE IV ; Start 04/27/21 at 19:00; Stop 04/27/21 at 19:29; Status UNV Vancomycin HCl (Vanco Per Pharmacy) 1 each PRN DAILY PRN MC SEE COMMENTS; Start 04/27/21 at 19:00; Status UNV Ceftriaxone Sodium (Rocephin) 1 gm 1X ONCE IVP Last administered on 04/27/21at 20:04; Start 04/27/21 at 19:15; Stop 04/27/21 at 19:16; Status DC Doxycycline Hyclate 100 mg/ Dextrose 100 ml @ 50 mls/hr 1X ONCE IV Last administered on 04/27/21at 20:00; Start 04/27/21 at 19:15; Stop 04/27/21 at 21:14; Status DC Sterile Water (WATER for RESP) 1,000 ml CONT PRN INH VIA VAPOTHERM DEVICE; Start 04/27/21 at 20:15 Piperacillin Sod/ Tazobactam Sod 4.5 gm/Sodium Chloride 100 ml @ 200 mls/hr 1X ONCE IV Last administered on 04/27/21at 20:57; Start 04/27/21 at 20:30; Stop 04/27/21 at 20:59; Status DC Potassium Bicarbonate (Potassium Effervescent Tablet) 40 meq 1X ONCE PO Last administered on 04/27/21at 20:56; Start 04/27/21 at 21:00; Stop 04/27/21 at 21:01; Status DC Potassium Chloride/Water 100 ml @ 50 mls/hr 1X ONCE IV Last administered on 04/27/21at 20:56; Start 04/27/21 at 21:00; Stop 04/27/21 at 22:59; Status DC Ondansetron HCl (Zofran) 4 mg PRN Q8HRS PRN IVP NAUSEA/VOMITING; Start 04/27/21 at 21:00; Stop 04/28/21 at 17:06; Status DC Morphine Sulfate (Morphine Sulfate) 2 mg PRN Q2HR PRN IVP PAIN; Start 04/27/21 at 21:00; Stop 04/28/21 at 20:59; Status DC Acetaminophen (Tylenol) 650 mg PRN Q4HRS PRN PO FEVER > 100.3'F; Start 04/27/21 at 21:00; Stop 04/28/21 at 17:06; Status DC Ascorbic Acid (Vitamin C) 3,000 mg TID PO Last administered on 05/02/21at 20:52; Start 04/28/21 at 14:00 Methylprednisolone Sodium Succinate (SOLU-Medrol 40MG VIAL) 40 mg Q8HRS IV Last administered on 05/02/21at 04:58; Start 04/28/21 at 14:00; Stop 05/02/21 at 08:15; Status DC Thiamine Mononitrate (Vitamin B-1) 300 mg DAILY PO Last administered on 05/02/21at 10:57; Start 04/28/21 at 13:00 Zinc Sulfate (Orazinc) 220 mg DAILY PO Last administered on 05/02/21at 10:56; Start 04/28/21 at 13:00 Sennosides (Senna) 17.2 mg PRN BID PRN PO CONSTIPATION Last administered on 05/01/21at 17:44; Start 04/28/21 at 12:00 Docusate Sodium (Colace) 100 mg PRN DAILY PRN PO HARD STOOLS Last administered on 05/01/21at 17:44; Start 04/28/21 at 12:00 Ondansetron HCl (Zofran) 4 mg PRN Q6HRS PRN IVP NAUSEA/VOMITING, 1st CHOICE; Start 04/28/21 at 12:00 Dextrose (Dextrose 50%-Water Syringe) 12.5 gm PRN Q15MIN PRN IV SEE COMMENTS; Start 04/28/21 at 12:00 Sodium Chloride 1,000 ml @ 100 mls/hr Q10H IV Last administered on 04/29/21at 07:50; Start 04/28/21 at 12:00; Stop 04/29/21 at 11:59; Status DC Acetaminophen (Tylenol) 650 mg PRN Q4HRS PRN PO TEMP OVER 100.4F OR MILD PAIN; Start 04/28/21 at 12:00 Enoxaparin Sodium (Lovenox 40mg Syringe) 40 mg Q24H SQ Last administered on at 07:49; Start 04/28/21 at 12:15; Stop 04/29/21 at 15:49; Status DC Pantoprazole Sodium (Protonix) 40 mg DAILYAC PO Last administered on 04/28/21at 16:56; Start 04/28/21 at 16:30; Stop 04/29/21 at 08:26; Status DC Prochlorperazine Edisylate (Compazine) 10 mg PRN Q6HRS PRN IV NAUSEA/VOMITING, 2nd CHOICE; Start 04/28/21 at 12:00 Remdesivir 200 mg/ Sodium Chloride 210 ml @ 210 mls/hr 1X ONCE IV Last administered on 04/28/21at 13:29; Start 04/28/21 at 13:00; Stop 04/28/21 at 13:59; Status DC Remdesivir 100 mg/ Sodium Chloride 230 ml @ 460 mls/hr Q24H IV Last administered on 05/02/21at 13:29; Start 04/29/21 at 13:00; Stop 05/02/21 at 13:29; Status DC Lorazepam (Ativan) 0.25 mg PRN Q8HRS PRN PO ANXIETY / AGITATION; Start 04/28/21 at 12:30 Potassium Chloride/Water 100 ml @ 100 mls/hr Q1H IV ; Start 04/29/21 at 05:45; Stop 04/29/21 at 07:44; Status UNV Potassium Chloride/Water 100 ml @ 100 mls/hr Q1H IV Last administered on 04/29/21at 09:15; Start 04/29/21 at 06:00; Stop 04/29/21 at 09:59; Status DC Pantoprazole Sodium (PROTONIX VIAL for IV PUSH) 40 mg DAILYAC IVP Last administered on 05/02/21at 10:57; Start 04/29/21 at 09:00 Potassium Chloride/Water 20 ml @ 20 mls/hr Q1H IV Last administered on 04/29/21at 16:08; Start 04/29/21 at 13:30; Stop 04/29/21 at 15:29; Status DC Enoxaparin Sodium (Lovenox 40mg Syringe) 40 mg Q12HR SQ Last administered on 05/02/21 20:52; Start 04/29/21 at 21:00 Doxycycline Hyclate 100 mg/ Dextrose 100 ml @ 50 mls/hr Q12HR IV Last administered on 05/02/21at 20:51; Start 04/29/21 at 17:00 Lactobacillus Rhamnosus (Culturelle) 1 cap BID PO Last administered on 05/02/21at 20:51; Start 04/29/21 at 21:00 Lisinopril (Prinivil) 10 mg DAILY PO Last administered on 05/02/21at 10:56; Start 05/01/21 at 21:00 Hydralazine HCl (Apresoline Inj) 10 mg PRN Q4HRS PRN IVP ELEVATED BP, SEE COMMENTS Last administered on 05/02/21at 23:08; Start 05/01/21 at 19:45 Dexamethasone Sodium Phosphate (Decadron) 6 mg DAILY IVP Last administered on 05/02/21at 10:58; Start 05/02/21 at 09:00 Active Scripts Active Reported Lisinopril Unknown Strength Tablet Unknown Dose PO DAILY Vitals/I & O Vital Sign - Last 24 Hours 05/02/21 05/02/21 05/02/21 05/02/21 09:20 10:56 11:00 15:00 Temp 97.3 97.5 97.5 97.3 97.5 97.5 Pulse 48 59 59 64 Resp 22 22 22 B/P (MAP) 158/86 (110) 149/95 146/95 (112) 142/89 (106) Pulse Ox 91 91 90 O2 Delivery BiPAP/CPAP NonRebreather Mask NonRebreather Mask O2 Flow Rate 15.0 15.0 05/02/21 05/02/21 05/02/21 05/02/21 19:30 20:00 22:43 23:08 Temp 96.9 97.8 96.9 97.8 Pulse 69 55 55 Resp 22 18 B/P (MAP) 160/102 (121) 170/101 (124) 170/101 Pulse Ox 90 91 O2 Delivery NonRebreather Mask Non-Rebreather NonRebreather Mask O2 Flow Rate 15.0 15.0 05/03/21 03:28 Temp 95.5 95.5 Pulse 72 Resp 20 B/P (MAP) 144/94 (111) Pulse Ox 90 O2 Delivery NonRebreather Mask O2 Flow Rate 15.0 Intake and Output 05/02/21 05/02/21 05/03/21 15:00 23:00 07:00 Output Total 1500 ml 1500 ml Balance -1500 ml -1500 ml Justicifation of Admission Dx: Justifications for Admission: Justification of Admission Dx: Yes Sepsis: Infection KATHI LINDQUIST MD May 03, 2021 08:29
[2021-05-03] MEDS: ZINC SULFATE 220 MG CAPSULE. PO SCH (09:13)
[2021-05-03] MEDS: ASCORBIC ACID 1,000 MG TABLET PO SCH ×3 (09:13→21:01)
[2021-05-03] MEDS: DOXYCYCLINE HYCLATE 100 MG in IV DEXTROSE 5% 100ML 100 ML IV SCH ×2 (09:13→21:01)
[2021-05-03] MEDS: LISINOPRIL 10 MG TABLET PO SCH (09:14)
[2021-05-03] MEDS: LACTOBACILLUS RHAMNOSUS GG 1 CAPSULE. PO SCH ×2 (09:14→21:01)
[2021-05-03] MEDS: THIAMINE 100 MG TABLET. PO SCH (09:14)
[2021-05-03] MEDS: PANTOPRAZOLE IV PUSH 40 MG VIAL. IVP SCH (09:15)
[2021-05-03] MEDS: DEXAMETHASONE SOD PHOS 4 MG/ML VIAL IVP SCH (09:15)
[2021-05-03] MEDS: ENOXAPARIN 40 MG/0.4 ML SYRINGE. SQ SCH ×2 (09:15→21:01)
--- NOTE | 2021-05-03 10:16 | PDOC ---
PULMONARY PROGRESS NOTES DATE: 05/03/21 TIME: 10:15 Subjective 100% FiO2 via nonrebreather mask Tolerating well Vitals Vital Signs Date Time Temp Pulse Resp B/P (MAP) Pulse Ox O2 Delivery O2 Flow Rate FiO2 05/03/21 09:14 72 144/94 05/03/21 08:25 93 NonRebreather Mask 15.0 05/03/21 07:00 97.3 17 97.3 Comments Visual exam done due to COVID-19 viral pneumonia. Remains on BiPAP. No paradoxical breathing. No obvious skin rash or edema. General: Alert, No acute distress Labs Laboratory Tests Test 05/02/21 05:50 05/02/21 09:30 05/03/21 05:30 White Blood Count 10.7 x10^3/uL (4.0-11.0) 12.9 x10^3/uL (4.0-11.0) Red Blood Count 7.20 x10^6/uL (3.50-5.40) 7.52 x10^6/uL (3.50-5.40) Hemoglobin 14.0 g/dL (12.0-15.5) 14.6 g/dL (12.0-15.5) Hematocrit 44.1 % (36.0-47.0) 45.8 % (36.0-47.0) Mean Corpuscular Volume 61 fL (79-100) 61 fL (79-100) Mean Corpuscular Hemoglobin 20 pg (25-35) 19 pg (25-35) Mean Corpuscular Hemoglobin Concent 32 g/dL (31-37) 32 g/dL (31-37) Red Cell Distribution Width 17.2 % (11.5-14.5) 17.4 % (11.5-14.5) Platelet Count 266 x10^3/uL (140-400) 207 x10^3/uL (140-400) Neutrophils (%) (Auto) 76 % (31-73) 76 % (31-73) Lymphocytes (%) (Auto) 14 % (24-48) 14 % (24-48) Monocytes (%) (Auto) 10 % (0-9) 8 % (0-9) Eosinophils (%) (Auto) 0 % (0-3) 1 % (0-3) Basophils (%) (Auto) 0 % (0-3) 0 % (0-3) Neutrophils # (Auto) 8.1 x10^3/uL (1.8-7.7) 9.9 x10^3/uL (1.8-7.7) Lymphocytes # (Auto) 1.5 x10^3/uL (1.0-4.8) 1.8 x10^3/uL (1.0-4.8) Monocytes # (Auto) 1.1 x10^3/uL (0.0-1.1) 1.0 x10^3/uL (0.0-1.1) Eosinophils # (Auto) 0.0 x10^3/uL (0.0-0.7) 0.1 x10^3/uL (0.0-0.7) Basophils # (Auto) 0.0 x10^3/uL (0.0-0.2) 0.0 x10^3/uL (0.0-0.2) Sodium Level 136 mmol/L (136-145) 137 mmol/L (136-145) Potassium Level 5.1 mmol/L (3.5-5.1) 3.5 mmol/L (3.5-5.1) Chloride Level 98 mmol/L (98-107) 100 mmol/L (98-107) Carbon Dioxide Level 33 mmol/L (21-32) 30 mmol/L (21-32) Anion Gap 5 (6-14) 7 (6-14) Blood Urea Nitrogen 24 mg/dL (7-20) 24 mg/dL (7-20) Creatinine 0.8 mg/dL (0.6-1.0) 0.7 mg/dL (0.6-1.0) Estimated GFR (Cockcroft-Gault) 76.9 89.7 Glucose Level 120 mg/dL (70-99) 77 mg/dL (70-99) Calcium Level 8.9 mg/dL (8.5-10.1) 8.8 mg/dL (8.5-10.1) O2 Saturation 98 % (92-99) Arterial Blood pH 7.47 (7.35-7.45) Arterial Blood pCO2 at Patient Temp 41 mmHg (35-46) Arterial Blood pO2 at Patient Temp 119 mmHg (75-108) Arterial Blood HCO3 29 mmol/L (21-28) Arterial Blood Base Excess 5 mmol/L (-3-3) FiO2 100% bipap Laboratory Tests Test 05/03/21 05:30 White Blood Count 12.9 x10^3/uL (4.0-11.0) Red Blood Count 7.52 x10^6/uL (3.50-5.40) Hemoglobin 14.6 g/dL (12.0-15.5) Hematocrit 45.8 % (36.0-47.0) Mean Corpuscular Volume 61 fL (79-100) Mean Corpuscular Hemoglobin 19 pg (25-35) Mean Corpuscular Hemoglobin Concent 32 g/dL (31-37) Red Cell Distribution Width 17.4 % (11.5-14.5) Platelet Count 207 x10^3/uL (140-400) Neutrophils (%) (Auto) 76 % (31-73) Lymphocytes (%) (Auto) 14 % (24-48) Monocytes (%) (Auto) 8 % (0-9) Eosinophils (%) (Auto) 1 % (0-3) Basophils (%) (Auto) 0 % (0-3) Neutrophils # (Auto) 9.9 x10^3/uL (1.8-7.7) Lymphocytes # (Auto) 1.8 x10^3/uL (1.0-4.8) Monocytes # (Auto) 1.0 x10^3/uL (0.0-1.1) Eosinophils # (Auto) 0.1 x10^3/uL (0.0-0.7) Basophils # (Auto) 0.0 x10^3/uL (0.0-0.2) Sodium Level 137 mmol/L (136-145) Potassium Level 3.5 mmol/L (3.5-5.1) Chloride Level 100 mmol/L (98-107) Carbon Dioxide Level 30 mmol/L (21-32) Anion Gap 7 (6-14) Blood Urea Nitrogen 24 mg/dL (7-20) Creatinine 0.7 mg/dL (0.6-1.0) Estimated GFR (Cockcroft-Gault) 89.7 Glucose Level 77 mg/dL (70-99) Calcium Level 8.8 mg/dL (8.5-10.1) Medications Active Scripts Medications Dose Route/Sig Max Daily Dose Days Date Category Lisinopril Unknown Strength Tablet Unknown Dose PO DAILY 04/28/21 Reported Comments Chest x-ray reviewed. Diffuse bilateral patchy interstitial infiltrates and cardiomegaly Impression . 1. Acute hypoxemic respiratory failure. 2. COVID-19 viral pneumonia, sepsis. 3. Hypertension. 4. Reportedly, the patient has been vaccinated. 5. Obesity. 6. Abnormal electrolytes. 7. Elevated BUN and creatinine compatible with acute kidney injury. 8. Protein malnutrition, present upon admission. Plan . PLAN: 1. We will continue support with nonrebreather mask.. Oxygenation is better. We will closely watch respiratory status. 2. Steroids. Per protocol. 3. Remdesivir per protocol for 5 days. 4. Replace electrolytes as needed. 5. Status post IV fluids. 6. Follow-up labs. Creatinine has improved. 7. DVT/GI prophylaxis. 8. Empiric antibiotics with doxycycline. Discussed with RN and respiratory therapist. Clinically improving OLGA LISA MD May 03, 2021 10:16
--- NOTE | 2021-05-03 13:11 | NUR ---
SS following up with discharge planning. SS reviewed pt chart and discussed with pt RN. Pt is currently on non-rebreather at 100%. COVID19 positive. Pt on IV Decadron and IV Doxycycline. Not stable. SS will continue to follow for discharge planning.
[2021-05-04 03:00] VITALS: BP 118/78
[2021-05-04] MEDS: PANTOPRAZOLE IV PUSH 40 MG VIAL. IVP SCH (05:45)
[2021-05-04 06:17] LABS: BASO % 0 % (0-3); EOS # 0.1 x10^3/uL (0.0-0.7); EOS % 2 % (0-3); HEMATOCRIT 44.4 % (36.0-47.0); HEMOGLOBIN 14.2 g/dL (12.0-15.5); LYMPH % 22 % (24-48); MEAN CORPUSCULAR HEMOGLOBIN 20 pg (25-35); MEAN CORPUSCULAR HGB CONC 32 g/dL (31-37); MEAN CORPUSCULAR VOLUME 61 fL (79-100); MONO # 0.9 x10^3/uL (0.0-1.1); MONO % 10 % (0-9); NEUT % 66 % (31-73); PLATELET COUNT 251 x10^3/uL (140-400); RED BLOOD COUNT 7.25 x10^6/uL (3.50-5.40); RED CELL DISTRIBUTION WIDTH 17.3 % (11.5-14.5); WHITE BLOOD COUNT 9.1 x10^3/uL (4.0-11.0)
[2021-05-04 06:18] LABS: CALCIUM 8.6 mg/dL (8.5-10.1); CREATININE 0.8 mg/dL (0.6-1.0); GFR 76.9; POTASSIUM 3.5 mmol/L (3.5-5.1)
[2021-05-04 07:00] VITALS: BP 124/80
--- NOTE | 2021-05-04 09:18 | PDOC ---
PROGRESS NOTES Date of Service: DATE: 05/04/21 TIME: 09:18 Chief Complaint Chief Complaint CC: Acute hypoxic respiratory failure Covid-19 viral pneumonia Sepsis Hypokalemia HTN Morbid obesity MAYRA Protein malnutrition History of Present Illness History of Present Illness HPI: Patient is a 45-year-old female with past medical history of hypertension and morbid obesity who presents with shortness of breath for the past 2 weeks that has gotten worse in the past few days. Patient says she got stung by bees 2 weeks ago she did have some dizziness today and felt like she was going to pass out. Patient states she is vaccinated for Covid. Denies any fevers, chest pain, abdominal pain, diarrhea, sick contacts, dysuria or hematuria. 04/29/21: Patient was seen and examined in the ICU today. She is currently on BiPAP 20/10. O2 saturation while being examined is at 89%. Discussed with RN. Patient currently on electrolyte replacement protocol. Chart reviewed. 04/30/21: Patient seen and examined in the ICU. She was resting with NAD. She is on BiPAP 20/10 with FiO2 of 100% and currently satting 96%. She changed to non- rebreather this morning to eat breakfast which she handled well. Her O2 sat did go down to 88% during this but is back up to 96% on the BiPAP now. K+ is now within normal range on today's lab values. Discussed with RN. Chart reviewed. 05/01/21: Patient seen and examined in the ICU today. She is resting with NAD. Making good eye contact and is alert. Patient is on non-rebreather at 100% O2 when she is examined and O2 sat is at 90%. When discussed with RN, she states that patient is predominately on BiPAP but switches to non-rebreather as needed for meals. Last night she had on the non-rebreather around 5:30pm-10:00pm and kept her O2 sat in the low 90's. The BiPAP settings are 20/10 with FiO2 of 100% and a rate of 20. Roa to bedside present. Patient has had a fair appetite and eats about 25-40% of her meals. Chart reviewed. 05/02/2021: Patient remains in ICU on BiPAP with FiO2 100%. Afebrile. Last day remdesivir today. We will continue treatment with empiric antibiotics and steroids; will change to Decadron 6 mg daily per standard of care. Chest x-ray from 04/29 showed good diffuse bilateral airspace opacities; will repeat chest x- ray today. Critical care time 30 minutes spent reviewing charts, reviewing labs, reviewing imaging, discussion with RN. 05/03/2021: ferritin 3264 FiO2 100%. Afebrile. Last day remdesivir 05-02 . We will continue treatment with empiric antibiotics and steroids; will change to Decadron 6 mg daily per standard of care. Chest x-ray from 04/29 showed good diffuse bilateral airspace opacities; will repeat chest x-ray today. 36 minutes spent reviewing charts, reviewing labs, reviewing imaging, discussion with RN. 100% FiO2 via non-rebreather mask Slight interval decrease in diffuse lower lobe predominant interstitial infiltrate. cxr 05-02 acute vasomotor nephropathy improved D/W RN 05/04/2021: ferritin 3264 crp 34.9 FiO2 100%. Afebrile. Last day remdesivir 05-02 . We will continue treatment with empiric antibiotics and steroids; will change to Decadron 6 mg daily per standard of care. Chest x-ray from 04/29 showed good diffuse bilateral airspace opacities; will repeat chest x-ray today. 38 minutes spent reviewing charts, reviewing labs, reviewing imaging, discussion with RN. 100% FiO2 via non-rebreather mask Slight interval decrease in diffuse lower lobe predominant interstitial infiltrate. cxr 05-02 acute vasomotor nephropathy improved D/W RN Remdesivir per protocol for 5 days. Replace electrolytes prn Vitals Vitals Vital Signs Date Time Temp Pulse Resp B/P (MAP) Pulse Ox O2 Delivery O2 Flow Rate FiO2 05/04/21 08:00 15.0 05/04/21 07:00 97.1 85 17 124/80 (95) 93 NonRebreather Mask 97.1 Physical Exam General: Alert, Oriented X3, Cooperative, mild distress Heart: Regular rate, Normal S1, Normal S2 Lungs: Crackles Abdomen: Normal bowel sounds, Soft, No tenderness Extremities: No cyanosis, No edema Skin: No rashes, No breakdown Labs LABS Laboratory Tests Test 05/04/21 05:40 White Blood Count 9.1 x10^3/uL (4.0-11.0) Red Blood Count 7.25 x10^6/uL (3.50-5.40) Hemoglobin 14.2 g/dL (12.0-15.5) Hematocrit 44.4 % (36.0-47.0) Mean Corpuscular Volume 61 fL (79-100) Mean Corpuscular Hemoglobin 20 pg (25-35) Mean Corpuscular Hemoglobin Concent 32 g/dL (31-37) Red Cell Distribution Width 17.3 % (11.5-14.5) Platelet Count 251 x10^3/uL (140-400) Neutrophils (%) (Auto) 66 % (31-73) Lymphocytes (%) (Auto) 22 % (24-48) Monocytes (%) (Auto) 10 % (0-9) Eosinophils (%) (Auto) 2 % (0-3) Basophils (%) (Auto) 0 % (0-3) Neutrophils # (Auto) 6.0 x10^3/uL (1.8-7.7) Lymphocytes # (Auto) 2.0 x10^3/uL (1.0-4.8) Monocytes # (Auto) 0.9 x10^3/uL (0.0-1.1) Eosinophils # (Auto) 0.1 x10^3/uL (0.0-0.7) Basophils # (Auto) 0.0 x10^3/uL (0.0-0.2) Sodium Level 137 mmol/L (136-145) Potassium Level 3.5 mmol/L (3.5-5.1) Chloride Level 102 mmol/L (98-107) Carbon Dioxide Level 33 mmol/L (21-32) Anion Gap 2 (6-14) Blood Urea Nitrogen 24 mg/dL (7-20) Creatinine 0.8 mg/dL (0.6-1.0) Estimated GFR (Cockcroft-Gault) 76.9 Glucose Level 86 mg/dL (70-99) Calcium Level 8.6 mg/dL (8.5-10.1) Assessment and Plan Assessmemt and Plan Problems Medical Problems: (1) Acute renal failure Status: Acute (2) Acute respiratory failure Status: Acute (3) Bee sting Status: Acute (4) Hypokalemia Status: Acute Comment Review of Relevant I have reviewed the following items anny (where applicable) has been applied. Labs Laboratory Tests Test 05/02/21 09:30 05/03/21 05:30 05/04/21 05:40 O2 Saturation 98 % (92-99) Arterial Blood pH 7.47 (7.35-7.45) Arterial Blood pCO2 at Patient Temp 41 mmHg (35-46) Arterial Blood pO2 at Patient Temp 119 mmHg (75-108) Arterial Blood HCO3 29 mmol/L (21-28) Arterial Blood Base Excess 5 mmol/L (-3-3) FiO2 100% bipap White Blood Count 12.9 x10^3/uL (4.0-11.0) 9.1 x10^3/uL (4.0-11.0) Red Blood Count 7.52 x10^6/uL (3.50-5.40) 7.25 x10^6/uL (3.50-5.40) Hemoglobin 14.6 g/dL (12.0-15.5) 14.2 g/dL (12.0-15.5) Hematocrit 45.8 % (36.0-47.0) 44.4 % (36.0-47.0) Mean Corpuscular Volume 61 fL (79-100) 61 fL (79-100) Mean Corpuscular Hemoglobin 19 pg (25-35) 20 pg (25-35) Mean Corpuscular Hemoglobin Concent 32 g/dL (31-37) 32 g/dL (31-37) Red Cell Distribution Width 17.4 % (11.5-14.5) 17.3 % (11.5-14.5) Platelet Count 207 x10^3/uL (140-400) 251 x10^3/uL (140-400) Neutrophils (%) (Auto) 76 % (31-73) 66 % (31-73) Lymphocytes (%) (Auto) 14 % (24-48) 22 % (24-48) Monocytes (%) (Auto) 8 % (0-9) 10 % (0-9) Eosinophils (%) (Auto) 1 % (0-3) 2 % (0-3) Basophils (%) (Auto) 0 % (0-3) 0 % (0-3) Neutrophils # (Auto) 9.9 x10^3/uL (1.8-7.7) 6.0 x10^3/uL (1.8-7.7) Lymphocytes # (Auto) 1.8 x10^3/uL (1.0-4.8) 2.0 x10^3/uL (1.0-4.8) Monocytes # (Auto) 1.0 x10^3/uL (0.0-1.1) 0.9 x10^3/uL (0.0-1.1) Eosinophils # (Auto) 0.1 x10^3/uL (0.0-0.7) 0.1 x10^3/uL (0.0-0.7) Basophils # (Auto) 0.0 x10^3/uL (0.0-0.2) 0.0 x10^3/uL (0.0-0.2) Sodium Level 137 mmol/L (136-145) 137 mmol/L (136-145) Potassium Level 3.5 mmol/L (3.5-5.1) 3.5 mmol/L (3.5-5.1) Chloride Level 100 mmol/L (98-107) 102 mmol/L (98-107) Carbon Dioxide Level 30 mmol/L (21-32) 33 mmol/L (21-32) Anion Gap 7 (6-14) 2 (6-14) Blood Urea Nitrogen 24 mg/dL (7-20) 24 mg/dL (7-20) Creatinine 0.7 mg/dL (0.6-1.0) 0.8 mg/dL (0.6-1.0) Estimated GFR (Cockcroft-Gault) 89.7 76.9 Glucose Level 77 mg/dL (70-99) 86 mg/dL (70-99) Calcium Level 8.8 mg/dL (8.5-10.1) 8.6 mg/dL (8.5-10.1) Ferritin 3264 ng/mL (8-252) C-Reactive Protein, Quantitative 34.9 mg/L (0-3.3) Laboratory Tests Test 05/04/21 05:40 White Blood Count 9.1 x10^3/uL (4.0-11.0) Red Blood Count 7.25 x10^6/uL (3.50-5.40) Hemoglobin 14.2 g/dL (12.0-15.5) Hematocrit 44.4 % (36.0-47.0) Mean Corpuscular Volume 61 fL (79-100) Mean Corpuscular Hemoglobin 20 pg (25-35) Mean Corpuscular Hemoglobin Concent 32 g/dL (31-37) Red Cell Distribution Width 17.3 % (11.5-14.5) Platelet Count 251 x10^3/uL (140-400) Neutrophils (%) (Auto) 66 % (31-73) Lymphocytes (%) (Auto) 22 % (24-48) Monocytes (%) (Auto) 10 % (0-9) Eosinophils (%) (Auto) 2 % (0-3) Basophils (%) (Auto) 0 % (0-3) Neutrophils # (Auto) 6.0 x10^3/uL (1.8-7.7) Lymphocytes # (Auto) 2.0 x10^3/uL (1.0-4.8) Monocytes # (Auto) 0.9 x10^3/uL (0.0-1.1) Eosinophils # (Auto) 0.1 x10^3/uL (0.0-0.7) Basophils # (Auto) 0.0 x10^3/uL (0.0-0.2) Sodium Level 137 mmol/L (136-145) Potassium Level 3.5 mmol/L (3.5-5.1) Chloride Level 102 mmol/L (98-107) Carbon Dioxide Level 33 mmol/L (21-32) Anion Gap 2 (6-14) Blood Urea Nitrogen 24 mg/dL (7-20) Creatinine 0.8 mg/dL (0.6-1.0) Estimated GFR (Cockcroft-Gault) 76.9 Glucose Level 86 mg/dL (70-99) Calcium Level 8.6 mg/dL (8.5-10.1) Microbiology 04/27/21 Blood Culture - Final, Complete NO GROWTH AFTER 5 DAYS Medications Current Medications Dexamethasone Sodium Phosphate (Decadron) 10 mg 1X ONCE IV Last administered on 04/27/21at 20:04; Start 04/27/21 at 19:00; Stop 04/27/21 at 19:10; Status DC Piperacillin Sod/ Tazobactam Sod 3.375 gm/Sodium Chloride 50 ml @ 100 mls/hr 1X ONCE IV ; Start 04/27/21 at 19:00; Stop 04/27/21 at 19:29; Status UNV Vancomycin HCl (Vanco Per Pharmacy) 1 each PRN DAILY PRN MC SEE COMMENTS; Start 04/27/21 at 19:00; Status UNV Ceftriaxone Sodium (Rocephin) 1 gm 1X ONCE IVP Last administered on 04/27/21at 20:04; Start 04/27/21 at 19:15; Stop 04/27/21 at 19:16; Status DC Doxycycline Hyclate 100 mg/ Dextrose 100 ml @ 50 mls/hr 1X ONCE IV Last administered on 04/27/21at 20:00; Start 04/27/21 at 19:15; Stop 04/27/21 at 21:14; Status DC Sterile Water (WATER for RESP) 1,000 ml CONT PRN INH VIA VAPOTHERM DEVICE; Start 04/27/21 at 20:15 Piperacillin Sod/ Tazobactam Sod 4.5 gm/Sodium Chloride 100 ml @ 200 mls/hr 1X ONCE IV Last administered on 04/27/21at 20:57; Start 04/27/21 at 20:30; Stop 04/27/21 at 20:59; Status DC Potassium Bicarbonate (Potassium Effervescent Tablet) 40 meq 1X ONCE PO Last administered on 04/27/21at 20:56; Start 04/27/21 at 21:00; Stop 04/27/21 at 21:01; Status DC Potassium Chloride/Water 100 ml @ 50 mls/hr 1X ONCE IV Last administered on 04/27/21at 20:56; Start 04/27/21 at 21:00; Stop 04/27/21 at 22:59; Status DC Ondansetron HCl (Zofran) 4 mg PRN Q8HRS PRN IVP NAUSEA/VOMITING; Start 04/27/21 at 21:00; Stop 04/28/21 at 17:06; Status DC Morphine Sulfate (Morphine Sulfate) 2 mg PRN Q2HR PRN IVP PAIN; Start 04/27/21 at 21:00; Stop 04/28/21 at 20:59; Status DC Acetaminophen (Tylenol) 650 mg PRN Q4HRS PRN PO FEVER > 100.3'F; Start 04/27/21 at 21:00; Stop 04/28/21 at 17:06; Status DC Ascorbic Acid (Vitamin C) 3,000 mg TID PO Last administered on 05/03/21at 21:01; Start 04/28/21 at 14:00 Methylprednisolone Sodium Succinate (SOLU-Medrol 40MG VIAL) 40 mg Q8HRS IV Last administered on 05/02/21at 04:58; Start 04/28/21 at 14:00; Stop 05/02/21 at 08:15; Status DC Thiamine Mononitrate (Vitamin B-1) 300 mg DAILY PO Last administered on 05/03/21at 09:14; Start 04/28/21 at 13:00 Zinc Sulfate (Orazinc) 220 mg DAILY PO Last administered on 05/03/21at 09:13; Start 04/28/21 at 13:00 Sennosides (Senna) 17.2 mg PRN BID PRN PO CONSTIPATION Last administered on 05/01/21at 17:44; Start 04/28/21 at 12:00 Docusate Sodium (Colace) 100 mg PRN DAILY PRN PO HARD STOOLS Last administered on 05/01/21at 17:44; Start 04/28/21 at 12:00 Ondansetron HCl (Zofran) 4 mg PRN Q6HRS PRN IVP NAUSEA/VOMITING, 1st CHOICE; Start 04/28/21 at 12:00 Dextrose (Dextrose 50%-Water Syringe) 12.5 gm PRN Q15MIN PRN IV SEE COMMENTS; Start 04/28/21 at 12:00 Sodium Chloride 1,000 ml @ 100 mls/hr Q10H IV Last administered on 04/29/21at 07:50; Start 04/28/21 at 12:00; Stop 04/29/21 at 11:59; Status DC Acetaminophen (Tylenol) 650 mg PRN Q4HRS PRN PO TEMP OVER 100.4F OR MILD PAIN; Start 04/28/21 at 12:00 Enoxaparin Sodium (Lovenox 40mg Syringe) 40 mg Q24H SQ Last administered on 04/29/21at 07:49; Start 04/28/21 at 12:15; Stop 04/29/21 at 15:49; Status DC Pantoprazole Sodium (Protonix) 40 mg DAILYAC PO Last administered on 04/28/21at 16:56; Start 04/28/21 at 16:30; Stop 04/29/21 at 08:26; Status DC Prochlorperazine Edisylate (Compazine) 10 mg PRN Q6HRS PRN IV NAUSEA/VOMITING, 2nd CHOICE; Start 04/28/21 at 12:00 Remdesivir 200 mg/ Sodium Chloride 210 ml @ 210 mls/hr 1X ONCE IV Last administered on 04/28/21at 13:29; Start 04/28/21 at 13:00; Stop 04/28/21 at 13:59; Status DC Remdesivir 100 mg/ Sodium Chloride 230 ml @ 460 mls/hr Q24H IV Last administered on 05/02/21at 13:29; Start 04/29/21 at 13:00; Stop 05/02/21 at 13:2 9; Status DC Lorazepam (Ativan) 0.25 mg PRN Q8HRS PRN PO ANXIETY / AGITATION; Start 04/28/21 at 12:30 Potassium Chloride/Water 100 ml @ 100 mls/hr Q1H IV ; Start 04/29/21 at 05:45; Stop 04/29/21 at 07:44; Status UNV Potassium Chloride/Water 100 ml @ 100 mls/hr Q1H IV Last administered on 04/29/21at 09:15; Start 04/29/21 at 06:00; Stop 04/29/21 at 09:59; Status DC Pantoprazole Sodium (PROTONIX VIAL for IV PUSH) 40 mg DAILYAC IVP Last administered on 05/04/21at 05:45; Start 04/29/21 at 09:00 Potassium Chloride/Water 20 ml @ 20 mls/hr Q1H IV Last administered on 04/29/21at 16:08; Start 04/29/21 at 13:30; Stop 04/29/21 at 15:29; Status DC Enoxaparin Sodium (Lovenox 40mg Syringe) 40 mg Q12HR SQ Last administered on 05/03/21at 21:01; Start 04/29/21 at 21:00 Doxycycline Hyclate 100 mg/ Dextrose 100 ml @ 50 mls/hr Q12HR IV Last administered on 05/03/21at 21:01; Start 04/29/21 at 17:00 Lactobacillus Rhamnosus (Culturelle) 1 cap BID PO Last administered on 05/03/21at 21:01; Start 04/29/21 at 21:00 Lisinopril (Prinivil) 10 mg DAILY PO Last administered on 05/03/21at 09:14; Start 05/01/21 at 21:00 Hydralazine HCl (Apresoline Inj) 10 mg PRN Q4HRS PRN IVP ELEVATED BP, SEE COMMENTS Last administered on 05/02/21at 23:08; Start 05/01/21 at 19:45 Dexamethasone Sodium Phosphate (Decadron) 6 mg DAILY IVP Last administered on 05/03/21at 09:15; Start 05/02/21 at 09:00 Active Scripts Active Reported Lisinopril Unknown Strength Tablet Unknown Dose PO DAILY Vitals/I & O Vital Sign - Last 24 Hours 05/03/21 05/03/21 05/03/21 05/03/21 11:15 12:14 15:00 16:15 Temp 95.9 97.7 97.7 95.9 97.7 97.7 Pulse 88 78 78 Resp 24 24 B/P (MAP) 131/89 (103) 117/76 (90) 117/76 (90) Pulse Ox 88 95 92 82 O2 Delivery Room Air NonRebreather Mask Room Air NonRebreather Mask O2 Flow Rate 15.0 15.0 10.0 05/03/21 05/03/21 05/03/21 05/03/21 19:50 20:00 20:30 23:05 Temp 97.5 96.5 97.5 96.5 Pulse 67 70 Resp 22 B/P (MAP) 123/75 (91) 128/74 (92) Pulse Ox 94 90 96 O2 Delivery NonRebreather Mask Non-Rebreather NonRebreather Mask NonRebreather Mask O2 Flow Rate 15.0 15.0 15.0 15.0 05/04/21 05/04/21 05/04/21 03:00 07:00 08:00 Temp 96.3 97.1 96.3 97.1 Pulse 69 85 Resp 22 17 B/P (MAP) 118/78 (91) 124/80 (95) Pulse Ox 96 93 O2 Delivery NonRebreather Mask NonRebreather Mask O2 Flow Rate 15.0 15.0 15.0 Intake and Output 05/03/21 05/03/21 05/04/21 15:00 23:00 07:00 Intake Total 500 ml Output Total 1500 ml 2800 ml 600 ml Balance -1500 ml -2800 ml -100 ml Justicifation of Admission Dx: Justifications for Admission: Justification of Admission Dx: Yes Sepsis: Infection KATHI LINDQUIST MD May 04, 2021 09:18
[2021-05-04] MEDS: THIAMINE 100 MG TABLET. PO SCH (09:31)
[2021-05-04] MEDS: ZINC SULFATE 220 MG CAPSULE. PO SCH (09:31)
[2021-05-04] MEDS: LACTOBACILLUS RHAMNOSUS GG 1 CAPSULE. PO SCH ×2 (09:31→22:06)
[2021-05-04] MEDS: LISINOPRIL 10 MG TABLET PO SCH (09:31)
[2021-05-04] MEDS: ENOXAPARIN 40 MG/0.4 ML SYRINGE. SQ SCH ×2 (09:32→22:06)
[2021-05-04] MEDS: ASCORBIC ACID 1,000 MG TABLET PO SCH ×3 (09:32→22:06)
[2021-05-04] MEDS: DEXAMETHASONE SOD PHOS 4 MG/ML VIAL IVP SCH (09:33)
[2021-05-04] MEDS: DOXYCYCLINE HYCLATE 100 MG in IV DEXTROSE 5% 100ML 100 ML IV SCH ×2 (09:33→22:06)
[2021-05-04 11:00] VITALS: BP 142/80
--- NOTE | 2021-05-04 11:03 | PDOC ---
PULMONARY PROGRESS NOTES DATE: 05/04/21 TIME: 11:02 Subjective 100% FiO2 via nonrebreather mask Tolerating well Vitals Vital Signs Date Time Temp Pulse Resp B/P (MAP) Pulse Ox O2 Delivery O2 Flow Rate FiO2 05/04/21 09:31 85 124/80 05/04/21 08:00 15.0 05/04/21 07:00 97.1 17 93 NonRebreather Mask 97.1 Comments Visual exam done due to COVID-19 viral pneumonia. Remains on BiPAP. No paradoxical breathing. No obvious skin rash or edema. General: Alert, No acute distress Labs Laboratory Tests Test 05/03/21 05:30 05/04/21 05:40 White Blood Count 12.9 x10^3/uL (4.0-11.0) 9.1 x10^3/uL (4.0-11.0) Red Blood Count 7.52 x10^6/uL (3.50-5.40) 7.25 x10^6/uL (3.50-5.40) Hemoglobin 14.6 g/dL (12.0-15.5) 14.2 g/dL (12.0-15.5) Hematocrit 45.8 % (36.0-47.0) 44.4 % (36.0-47.0) Mean Corpuscular Volume 61 fL (79-100) 61 fL (79-100) Mean Corpuscular Hemoglobin 19 pg (25-35) 20 pg (25-35) Mean Corpuscular Hemoglobin Concent 32 g/dL (31-37) 32 g/dL (31-37) Red Cell Distribution Width 17.4 % (11.5-14.5) 17.3 % (11.5-14.5) Platelet Count 207 x10^3/uL (140-400) 251 x10^3/uL (140-400) Neutrophils (%) (Auto) 76 % (31-73) 66 % (31-73) Lymphocytes (%) (Auto) 14 % (24-48) 22 % (24-48) Monocytes (%) (Auto) 8 % (0-9) 10 % (0-9) Eosinophils (%) (Auto) 1 % (0-3) 2 % (0-3) Basophils (%) (Auto) 0 % (0-3) 0 % (0-3) Neutrophils # (Auto) 9.9 x10^3/uL (1.8-7.7) 6.0 x10^3/uL (1.8-7.7) Lymphocytes # (Auto) 1.8 x10^3/uL (1.0-4.8) 2.0 x10^3/uL (1.0-4.8) Monocytes # (Auto) 1.0 x10^3/uL (0.0-1.1) 0.9 x10^3/uL (0.0-1.1) Eosinophils # (Auto) 0.1 x10^3/uL (0.0-0.7) 0.1 x10^3/uL (0.0-0.7) Basophils # (Auto) 0.0 x10^3/uL (0.0-0.2) 0.0 x10^3/uL (0.0-0.2) Sodium Level 137 mmol/L (136-145) 137 mmol/L (136-145) Potassium Level 3.5 mmol/L (3.5-5.1) 3.5 mmol/L (3.5-5.1) Chloride Level 100 mmol/L (98-107) 102 mmol/L (98-107) Carbon Dioxide Level 30 mmol/L (21-32) 33 mmol/L (21-32) Anion Gap 7 (6-14) 2 (6-14) Blood Urea Nitrogen 24 mg/dL (7-20) 24 mg/dL (7-20) Creatinine 0.7 mg/dL (0.6-1.0) 0.8 mg/dL (0.6-1.0) Estimated GFR (Cockcroft-Gault) 89.7 76.9 Glucose Level 77 mg/dL (70-99) 86 mg/dL (70-99) Calcium Level 8.8 mg/dL (8.5-10.1) 8.6 mg/dL (8.5-10.1) Ferritin 3264 ng/mL (8-252) C-Reactive Protein, Quantitative 34.9 mg/L (0-3.3) Laboratory Tests Test 05/04/21 05:40 White Blood Count 9.1 x10^3/uL (4.0-11.0) Red Blood Count 7.25 x10^6/uL (3.50-5.40) Hemoglobin 14.2 g/dL (12.0-15.5) Hematocrit 44.4 % (36.0-47.0) Mean Corpuscular Volume 61 fL (79-100) Mean Corpuscular Hemoglobin 20 pg (25-35) Mean Corpuscular Hemoglobin Concent 32 g/dL (31-37) Red Cell Distribution Width 17.3 % (11.5-14.5) Platelet Count 251 x10^3/uL (140-400) Neutrophils (%) (Auto) 66 % (31-73) Lymphocytes (%) (Auto) 22 % (24-48) Monocytes (%) (Auto) 10 % (0-9) Eosinophils (%) (Auto) 2 % (0-3) Basophils (%) (Auto) 0 % (0-3) Neutrophils # (Auto) 6.0 x10^3/uL (1.8-7.7) Lymphocytes # (Auto) 2.0 x10^3/uL (1.0-4.8) Monocytes # (Auto) 0.9 x10^3/uL (0.0-1.1) Eosinophils # (Auto) 0.1 x10^3/uL (0.0-0.7) Basophils # (Auto) 0.0 x10^3/uL (0.0-0.2) Sodium Level 137 mmol/L (136-145) Potassium Level 3.5 mmol/L (3.5-5.1) Chloride Level 102 mmol/L (98-107) Carbon Dioxide Level 33 mmol/L (21-32) Anion Gap 2 (6-14) Blood Urea Nitrogen 24 mg/dL (7-20) Creatinine 0.8 mg/dL (0.6-1.0) Estimated GFR (Cockcroft-Gault) 76.9 Glucose Level 86 mg/dL (70-99) Calcium Level 8.6 mg/dL (8.5-10.1) Medications Active Scripts Medications Dose Route/Sig Max Daily Dose Days Date Category Lisinopril Unknown Strength Tablet Unknown Dose PO DAILY 04/28/21 Reported Comments Chest x-ray reviewed. Diffuse bilateral patchy interstitial infiltrates and cardiomegaly Impression . 1. Acute hypoxemic respiratory failure. 2. COVID-19 viral pneumonia, sepsis. 3. Hypertension. 4. Reportedly, the patient has been vaccinated. 5. Obesity. 6. Abnormal electrolytes. 7. Elevated BUN and creatinine compatible with acute kidney injury. 8. Protein malnutrition, present upon admission. Plan . PLAN: 1. We will continue support with nonrebreather mask.. Oxygenation is better. We will closely watch respiratory status. 2. Steroids. Per protocol. 3. Remdesivir per protocol for 5 days. 4. Replace electrolytes as needed. 5. Status post IV fluids. 6. Follow-up labs. Creatinine has improved. 7. DVT/GI prophylaxis. 8. Empiric antibiotics with doxycycline. Discussed with RN and respiratory therapist. Clinically improving OLGA LISA MD May 04, 2021 11:03
--- NOTE | 2021-05-04 12:46 | NUR ---
SS following up with discharge planning. SS reviewed pt chart and discussed with pt RN. Pt is currently requiring oxygen via non-rebreather at 100%. COVID19 positive. Pt on IV Decadron and IV Doxycycline. Not stable. SS will continue to follow for discharge planning.
[2021-05-04 15:00] VITALS: BP 112/66
[2021-05-04 19:52] VITALS: BP 119/77
[2021-05-04] MEDS: DOCUSATE SODIUM 100 MG CAPSULE. PO PRN (22:06)
[2021-05-04 23:17] VITALS: BP 154/101
[2021-05-05 02:52] VITALS: BP 149/88
[2021-05-05 07:00] VITALS: BP 145/90
[2021-05-05 07:03] LABS: BASO % 0 % (0-3); EOS # 0.1 x10^3/uL (0.0-0.7); EOS % 2 % (0-3); HEMATOCRIT 45.5 % (36.0-47.0); HEMOGLOBIN 14.2 g/dL (12.0-15.5); LYMPH % 26 % (24-48); MEAN CORPUSCULAR HEMOGLOBIN 19 pg (25-35); MEAN CORPUSCULAR HGB CONC 31 g/dL (31-37); MEAN CORPUSCULAR VOLUME 62 fL (79-100); MONO # 0.9 x10^3/uL (0.0-1.1); MONO % 12 % (0-9); NEUT # 4.6 x10^3/uL (1.8-7.7); NEUT % 60 % (31-73); PLATELET COUNT 241 x10^3/uL (140-400); RED BLOOD COUNT 7.41 x10^6/uL (3.50-5.40); RED CELL DISTRIBUTION WIDTH 17.2 % (11.5-14.5); WHITE BLOOD COUNT 7.7 x10^3/uL (4.0-11.0)
[2021-05-05 07:46] LABS: CALCIUM 8.8 mg/dL (8.5-10.1); CREATININE 0.6 mg/dL (0.6-1.0); GFR 107.2; POTASSIUM 3.8 mmol/L (3.5-5.1)
[2021-05-05 08:18] LABS: ALBUMIN 2.4 g/dL (3.4-5.0); DIRECT BILIRUBIN 0.1 mg/dL (0.0-0.2); TOTAL BILIRUBIN 0.7 mg/dL (0.2-1.0); TOTAL PROTEIN 5.7 g/dL (6.4-8.2)
[2021-05-05] MEDS: THIAMINE 100 MG TABLET. PO SCH (08:37)
[2021-05-05] MEDS: LACTOBACILLUS RHAMNOSUS GG 1 CAPSULE. PO SCH ×2 (08:37→21:32)
[2021-05-05] MEDS: ZINC SULFATE 220 MG CAPSULE. PO SCH (08:37)
[2021-05-05] MEDS: LISINOPRIL 10 MG TABLET PO SCH (08:43)
[2021-05-05] MEDS: ASCORBIC ACID 1,000 MG TABLET PO SCH ×3 (08:43→21:32)
[2021-05-05] MEDS: PANTOPRAZOLE IV PUSH 40 MG VIAL. IVP SCH (08:43)
[2021-05-05] MEDS: ENOXAPARIN 40 MG/0.4 ML SYRINGE. SQ SCH ×2 (08:43→21:33)
[2021-05-05] MEDS: DEXAMETHASONE SOD PHOS 4 MG/ML VIAL IVP SCH (08:44)
[2021-05-05] MEDS: DOXYCYCLINE HYCLATE 100 MG in IV DEXTROSE 5% 100ML 100 ML IV SCH ×2 (08:44→21:33)
--- NOTE | 2021-05-05 08:51 | PDOC ---
PROGRESS NOTES Date of Service: DATE: 05/05/21 TIME: 08:51 Chief Complaint Chief Complaint CC: Acute hypoxic respiratory failure Covid-19 viral pneumonia Sepsis Hypokalemia HTN Morbid obesity MAYRA Protein malnutrition History of Present Illness History of Present Illness HPI: Patient is a 45-year-old female with past medical history of hypertension and morbid obesity who presents with shortness of breath for the past 2 weeks that has gotten worse in the past few days. Patient says she got stung by bees 2 weeks ago she did have some dizziness today and felt like she was going to pass out. Patient states she is vaccinated for Covid. Denies any fevers, chest pain, abdominal pain, diarrhea, sick contacts, dysuria or hematuria. 04/29/21: Patient was seen and examined in the ICU today. She is currently on BiPAP 20/10. O2 saturation while being examined is at 89%. Discussed with RN. Patient currently on electrolyte replacement protocol. Chart reviewed. 04/30/21: Patient seen and examined in the ICU. She was resting with NAD. She is on BiPAP 20/10 with FiO2 of 100% and currently satting 96%. She changed to non- rebreather this morning to eat breakfast which she handled well. Her O2 sat did go down to 88% during this but is back up to 96% on the BiPAP now. K+ is now within normal range on today's lab values. Discussed with RN. Chart reviewed. 05/01/21: Patient seen and examined in the ICU today. She is resting with NAD. Making good eye contact and is alert. Patient is on non-rebreather at 100% O2 when she is examined and O2 sat is at 90%. When discussed with RN, she states that patient is predominately on BiPAP but switches to non-rebreather as needed for meals. Last night she had on the non-rebreather around 5:30pm-10:00pm and kept her O2 sat in the low 90's. The BiPAP settings are 20/10 with FiO2 of 100% and a rate of 20. Roa to bedside present. Patient has had a fair appetite and eats about 25-40% of her meals. Chart reviewed. 05/02/2021: Patient remains in ICU on BiPAP with FiO2 100%. Afebrile. Last day remdesivir today. We will continue treatment with empiric antibiotics and steroids; will change to Decadron 6 mg daily per standard of care. Chest x-ray from 04/29 showed good diffuse bilateral airspace opacities; will repeat chest x- ray today. Critical care time 30 minutes spent reviewing charts, reviewing labs, reviewing imaging, discussion with RN. 05/03/2021: ferritin 3264 FiO2 100%. Afebrile. Last day remdesivir 05-02 . We will continue treatment with empiric antibiotics and steroids; will change to Decadron 6 mg daily per standard of care. Chest x-ray from 04/29 showed good diffuse bilateral airspace opacities; will repeat chest x-ray today. 36 minutes spent reviewing charts, reviewing labs, reviewing imaging, discussion with RN. 100% FiO2 via non-rebreather mask Slight interval decrease in diffuse lower lobe predominant interstitial infiltrate. cxr 05-02 acute vasomotor nephropathy improved D/W RN 05/04/2021: ferritin 3264 crp 34.9 FiO2 100%. Afebrile. Last day remdesivir 05-02 . We will continue treatment with empiric antibiotics and steroids; will change to Decadron 6 mg daily per standard of care. Chest x-ray from 04/29 showed good diffuse bilateral airspace opacities; will repeat chest x-ray today. 38 minutes spent reviewing charts, reviewing labs, reviewing imaging, discussion with RN. 100% FiO2 via non-rebreather mask Slight interval decrease in diffuse lower lobe predominant interstitial infiltrate. cxr 05-02 acute vasomotor nephropathy improved D/W RN Remdesivir per protocol for 5 days. Replace electrolytes prn 05/05/2021: ferritin 3264 crp 34.9 FiO2 100%. Afebrile. Last day remdesivir 05-02 . We will continue treatment with empiric antibiotics and steroids; will change to Decadron 6 mg daily per standard of care. Chest x-ray from 04/29 showed good diffuse bilateral airspace opacities; will repeat chest x-ray today. 38 minutes spent reviewing charts, reviewing labs, reviewing imaging, discussion with RN. 100% FiO2 via non-rebreather mask Slight interval decrease in diffuse lower lobe predominant interstitial infiltrate. cxr 05-02 acute vasomotor nephropathy improved D/W RN Remdesivir per protocol for 5 days. Replace electrolytes prn Vitals Vitals Vital Signs Date Time Temp Pulse Resp B/P (MAP) Pulse Ox O2 Delivery O2 Flow Rate FiO2 05/05/21 08:43 67 145/90 05/05/21 07:10 10.0 05/05/21 07:00 96.3 17 96 NonRebreather Mask 96.3 Physical Exam General: Alert, Oriented X3, Cooperative, No acute distress Heart: Regular rate, Normal S1, Normal S2 Lungs: Crackles Abdomen: Normal bowel sounds, Soft, No tenderness Extremities: No cyanosis, No edema Skin: No rashes, No breakdown Labs LABS Laboratory Tests Test 05/05/21 06:25 White Blood Count 7.7 x10^3/uL (4.0-11.0) Red Blood Count 7.41 x10^6/uL (3.50-5.40) Hemoglobin 14.2 g/dL (12.0-15.5) Hematocrit 45.5 % (36.0-47.0) Mean Corpuscular Volume 62 fL (79-100) Mean Corpuscular Hemoglobin 19 pg (25-35) Mean Corpuscular Hemoglobin Concent 31 g/dL (31-37) Red Cell Distribution Width 17.2 % (11.5-14.5) Platelet Count 241 x10^3/uL (140-400) Neutrophils (%) (Auto) 60 % (31-73) Lymphocytes (%) (Auto) 26 % (24-48) Monocytes (%) (Auto) 12 % (0-9) Eosinophils (%) (Auto) 2 % (0-3) Basophils (%) (Auto) 0 % (0-3) Neutrophils # (Auto) 4.6 x10^3/uL (1.8-7.7) Lymphocytes # (Auto) 2.0 x10^3/uL (1.0-4.8) Monocytes # (Auto) 0.9 x10^3/uL (0.0-1.1) Eosinophils # (Auto) 0.1 x10^3/uL (0.0-0.7) Basophils # (Auto) 0.0 x10^3/uL (0.0-0.2) Sodium Level 141 mmol/L (136-145) Potassium Level 3.8 mmol/L (3.5-5.1) Chloride Level 102 mmol/L (98-107) Carbon Dioxide Level 25 mmol/L (21-32) Anion Gap 14 (6-14) Blood Urea Nitrogen 20 mg/dL (7-20) Creatinine 0.6 mg/dL (0.6-1.0) Estimated GFR (Cockcroft-Gault) 107.2 Glucose Level 81 mg/dL (70-99) Calcium Level 8.8 mg/dL (8.5-10.1) Ferritin 262 ng/mL (8-252) Total Bilirubin 0.7 mg/dL (0.2-1.0) Direct Bilirubin 0.1 mg/dL (0.0-0.2) Aspartate Amino Transf (AST/SGOT) 20 U/L (15-37) Alanine Aminotransferase (ALT/SGPT) 29 U/L (14-59) Alkaline Phosphatase 51 U/L (46-116) Total Protein 5.7 g/dL (6.4-8.2) Albumin 2.4 g/dL (3.4-5.0) Assessment and Plan Assessmemt and Plan Problems Medical Problems: (1) Acute renal failure Status: Acute (2) Acute respiratory failure Status: Acute (3) Bee sting Status: Acute (4) Hypokalemia Status: Acute Comment Review of Relevant I have reviewed the following items anny (where applicable) has been applied. Labs Laboratory Tests Test 05/04/21 05:40 05/05/21 06:25 White Blood Count 9.1 x10^3/uL (4.0-11.0) 7.7 x10^3/uL (4.0-11.0) Red Blood Count 7.25 x10^6/uL (3.50-5.40) 7.41 x10^6/uL (3.50-5.40) Hemoglobin 14.2 g/dL (12.0-15.5) 14.2 g/dL (12.0-15.5) Hematocrit 44.4 % (36.0-47.0) 45.5 % (36.0-47.0) Mean Corpuscular Volume 61 fL (79-100) 62 fL (79-100) Mean Corpuscular Hemoglobin 20 pg (25-35) 19 pg (25-35) Mean Corpuscular Hemoglobin Concent 32 g/dL (31-37) 31 g/dL (31-37) Red Cell Distribution Width 17.3 % (11.5-14.5) 17.2 % (11.5-14.5) Platelet Count 251 x10^3/uL (140-400) 241 x10^3/uL (140-400) Neutrophils (%) (Auto) 66 % (31-73) 60 % (31-73) Lymphocytes (%) (Auto) 22 % (24-48) 26 % (24-48) Monocytes (%) (Auto) 10 % (0-9) 12 % (0-9) Eosinophils (%) (Auto) 2 % (0-3) 2 % (0-3) Basophils (%) (Auto) 0 % (0-3) 0 % (0-3) Neutrophils # (Auto) 6.0 x10^3/uL (1.8-7.7) 4.6 x10^3/uL (1.8-7.7) Lymphocytes # (Auto) 2.0 x10^3/uL (1.0-4.8) 2.0 x10^3/uL (1.0-4.8) Monocytes # (Auto) 0.9 x10^3/uL (0.0-1.1) 0.9 x10^3/uL (0.0-1.1) Eosinophils # (Auto) 0.1 x10^3/uL (0.0-0.7) 0.1 x10^3/uL (0.0-0.7) Basophils # (Auto) 0.0 x10^3/uL (0.0-0.2) 0.0 x10^3/uL (0.0-0.2) Sodium Level 137 mmol/L (136-145) 141 mmol/L (136-145) Potassium Level 3.5 mmol/L (3.5-5.1) 3.8 mmol/L (3.5-5.1) Chloride Level 102 mmol/L (98-107) 102 mmol/L (98-107) Carbon Dioxide Level 33 mmol/L (21-32) 25 mmol/L (21-32) Anion Gap 2 (6-14) 14 (6-14) Blood Urea Nitrogen 24 mg/dL (7-20) 20 mg/dL (7-20) Creatinine 0.8 mg/dL (0.6-1.0) 0.6 mg/dL (0.6-1.0) Estimated GFR (Cockcroft-Gault) 76.9 107.2 Glucose Level 86 mg/dL (70-99) 81 mg/dL (70-99) Calcium Level 8.6 mg/dL (8.5-10.1) 8.8 mg/dL (8.5-10.1) Ferritin 262 ng/mL (8-252) Total Bilirubin 0.7 mg/dL (0.2-1.0) Direct Bilirubin 0.1 mg/dL (0.0-0.2) Aspartate Amino Transf (AST/SGOT) 20 U/L (15-37) Alanine Aminotransferase (ALT/SGPT) 29 U/L (14-59) Alkaline Phosphatase 51 U/L (46-116) Total Protein 5.7 g/dL (6.4-8.2) Albumin 2.4 g/dL (3.4-5.0) Laboratory Tests Test 05/05/21 06:25 White Blood Count 7.7 x10^3/uL (4.0-11.0) Red Blood Count 7.41 x10^6/uL (3.50-5.40) Hemoglobin 14.2 g/dL (12.0-15.5) Hematocrit 45.5 % (36.0-47.0) Mean Corpuscular Volume 62 fL (79-100) Mean Corpuscular Hemoglobin 19 pg (25-35) Mean Corpuscular Hemoglobin Concent 31 g/dL (31-37) Red Cell Distribution Width 17.2 % (11.5-14.5) Platelet Count 241 x10^3/uL (140-400) Neutrophils (%) (Auto) 60 % (31-73) Lymphocytes (%) (Auto) 26 % (24-48) Monocytes (%) (Auto) 12 % (0-9) Eosinophils (%) (Auto) 2 % (0-3) Basophils (%) (Auto) 0 % (0-3) Neutrophils # (Auto) 4.6 x10^3/uL (1.8-7.7) Lymphocytes # (Auto) 2.0 x10^3/uL (1.0-4.8) Monocytes # (Auto) 0.9 x10^3/uL (0.0-1.1) Eosinophils # (Auto) 0.1 x10^3/uL (0.0-0.7) Basophils # (Auto) 0.0 x10^3/uL (0.0-0.2) Sodium Level 141 mmol/L (136-145) Potassium Level 3.8 mmol/L (3.5-5.1) Chloride Level 102 mmol/L (98-107) Carbon Dioxide Level 25 mmol/L (21-32) Anion Gap 14 (6-14) Blood Urea Nitrogen 20 mg/dL (7-20) Creatinine 0.6 mg/dL (0.6-1.0) Estimated GFR (Cockcroft-Gault) 107.2 Glucose Level 81 mg/dL (70-99) Calcium Level 8.8 mg/dL (8.5-10.1) Ferritin 262 ng/mL (8-252) Total Bilirubin 0.7 mg/dL (0.2-1.0) Direct Bilirubin 0.1 mg/dL (0.0-0.2) Aspartate Amino Transf (AST/SGOT) 20 U/L (15-37) Alanine Aminotransferase (ALT/SGPT) 29 U/L (14-59) Alkaline Phosphatase 51 U/L (46-116) Total Protein 5.7 g/dL (6.4-8.2) Albumin 2.4 g/dL (3.4-5.0) Microbiology 04/27/21 Blood Culture - Final, Complete NO GROWTH AFTER 5 DAYS Medications Current Medications Dexamethasone Sodium Phosphate (Decadron) 10 mg 1X ONCE IV Last administered on 04/27/21at 20:04; Start 04/27/21 at 19:00; Stop 04/27/21 at 19:10; Status DC Piperacillin Sod/ Tazobactam Sod 3.375 gm/Sodium Chloride 50 ml @ 100 mls/hr 1X ONCE IV ; Start 04/27/21 at 19:00; Stop 04/27/21 at 19:29; Status UNV Vancomycin HCl (Vanco Per Pharmacy) 1 each PRN DAILY PRN MC SEE COMMENTS; Start 04/27/21 at 19:00; Status UNV Ceftriaxone Sodium (Rocephin) 1 gm 1X ONCE IVP Last administered on 04/27/21at 20:04; Start 04/27/21 at 19:15; Stop 04/27/21 at 19:16; Status DC Doxycycline Hyclate 100 mg/ Dextrose 100 ml @ 50 mls/hr 1X ONCE IV Last administered on 04/27/21at 20:00; Start 04/27/21 at 19:15; Stop 04/27/21 at 21:14; Status DC Sterile Water (WATER for RESP) 1,000 ml CONT PRN INH VIA VAPOTHERM DEVICE; Start 04/27/21 at 20:15 Piperacillin Sod/ Tazobactam Sod 4.5 gm/Sodium Chloride 100 ml @ 200 mls/hr 1X ONCE IV Last administered on 04/27/21at 20:57; Start 04/27/21 at 20:30; Stop 04/27/21 at 20:59; Status DC Potassium Bicarbonate (Potassium Effervescent Tablet) 40 meq 1X ONCE PO Last administered on 04/27/21at 20:56; Start 04/27/21 at 21:00; Stop 04/27/21 at 21:01; Status DC Potassium Chloride/Water 100 ml @ 50 mls/hr 1X ONCE IV Last administered on 04/27/21at 20:56; Start 04/27/21 at 21:00; Stop 04/27/21 at 22:59; Status DC Ondansetron HCl (Zofran) 4 mg PRN Q8HRS PRN IVP NAUSEA/VOMITING; Start 04/27/21 at 21:00; Stop 04/28/21 at 17:06; Status DC Morphine Sulfate (Morphine Sulfate) 2 mg PRN Q2HR PRN IVP PAIN; Start 04/27/21 at 21:00; Stop 04/28/21 at 20:59; Status DC Acetaminophen (Tylenol) 650 mg PRN Q4HRS PRN PO FEVER > 100.3'F; Start 04/27/21 at 21:00; Stop 04/28/21 at 17:06; Status DC Ascorbic Acid (Vitamin C) 3,000 mg TID PO Last administered on 05/05/21at 08:43; Start 04/28/21 at 14:00 Methylprednisolone Sodium Succinate (SOLU-Medrol 40MG VIAL) 40 mg Q8HRS IV Last administered on 05/02/21at 04:58; Start 04/28/21 at 14:00; Stop 05/02/21 at 08:15; Status DC Thiamine Mononitrate (Vitamin B-1) 300 mg DAILY PO Last administered on 05/05/21at 08:37; Start 04/28/21 at 13:00 Zinc Sulfate (Orazinc) 220 mg DAILY PO Last administered on 05/05/21at 08:37; Start 04/28/21 at 13:00 Sennosides (Senna) 17.2 mg PRN BID PRN PO CONSTIPATION Last administered on 05/01/21at 17:44; Start 04/28/21 at 12:00 Docusate Sodium (Colace) 100 mg PRN DAILY PRN PO HARD STOOLS Last administered on 05/04/21at 22:06; Start 04/28/21 at 12:00 Ondansetron HCl (Zofran) 4 mg PRN Q6HRS PRN IVP NAUSEA/VOMITING, 1st CHOICE; Start 04/28/21 at 12:00 Dextrose (Dextrose 50%-Water Syringe) 12.5 gm PRN Q15MIN PRN IV SEE COMMENTS; Start 04/28/21 at 12:00 Sodium Chloride 1,000 ml @ 100 mls/hr Q10H IV Last administered on 04/29/21at 07:50; Start 04/28/21 at 12:00; Stop 04/29/21 at 11:59; Status DC Acetaminophen (Tylenol) 650 mg PRN Q4HRS PRN PO TEMP OVER 100.4F OR MILD PAIN; Start 04/28/21 at 12:00 Enoxaparin Sodium (Lovenox 40mg Syringe) 40 mg Q24H SQ Last administered on 04/29/21at 07:49; Start 04/28/21 at 12:15; Stop 04/29/21 at 15:49; Status DC Pantoprazole Sodium (Protonix) 40 mg DAILYAC PO Last administered on 04/28/21at 16:56; Start 04/28/21 at 16:30; Stop 04/29/21 at 08:26; Status DC Prochlorperazine Edisylate (Compazine) 10 mg PRN Q6HRS PRN IV NAUSEA/VOMITING, 2nd CHOICE; Start 04/28/21 at 12:00 Remdesivir 200 mg/ Sodium Chloride 210 ml @ 210 mls/hr 1X ONCE IV Last administered on 04/28/21at 13:29; Start 04/28/21 at 13:00; Stop 04/28/21 at 13:59; Status DC Remdesivir 100 mg/ Sodium Chloride 230 ml @ 460 mls/hr Q24H IV Last administered on 05/02/21at 13:29; Start 04/29/21 at 13:00; Stop 05/02/21 at 13:29; Status DC Lorazepam (Ativan) 0.25 mg PRN Q8HRS PRN PO ANXIETY / AGITATION; Start 04/28/21 at 12:30 Potassium Chloride/Water 100 ml @ 100 mls/hr Q1H IV ; Start 04/29/21 at 05:45; Stop 04/29/21 at 07:44; Status UNV Potassium Chloride/Water 100 ml @ 100 mls/hr Q1H IV Last administered on 04/29/21at 09:15; Start 04/29/21 at 06:00; Stop 04/29/21 at 09:59; Status DC Pantoprazole Sodium (PROTONIX VIAL for IV PUSH) 40 mg DAILYAC IVP Last administered on 05/05/21at 08:43; Start 04/29/21 at 09:00 Potassium Chloride/Water 20 ml @ 20 mls/hr Q1H IV Last administered on 04/29/21at 16:08; Start 04/29/21 at 13:30; Stop 04/29/21 at 15:29; Status DC Enoxaparin Sodium (Lovenox 40mg Syringe) 40 mg Q12HR SQ Last administered on 05/05/21at 08:43; Start 04/29/21 at 21:00 Doxycycline Hyclate 100 mg/ Dextrose 100 ml @ 50 mls/hr Q12HR IV Last administered on 05/05/21at 08:44; Start 04/29/21 at 17:00 Lactobacillus Rhamnosus (Culturelle) 1 cap BID PO Last administered on 05/05/21at 08:37; Start 04/29/21 at 21:00 Lisinopril (Prinivil) 10 mg DAILY PO Last administered on 05/05/21at 08:43; Start 05/01/21 at 21:00 Hydralazine HCl (Apresoline Inj) 10 mg PRN Q4HRS PRN IVP ELEVATED BP, SEE COMMENTS Last administered on 05/02/21at 23:08; Start 05/01/21 at 19:45 Dexamethasone Sodium Phosphate (Decadron) 6 mg DAILY IVP Last administered on 05/05/21at 08:44; Start 05/02/21 at 09:00 Active Scripts Active Reported Lisinopril Unknown Strength Tablet Unknown Dose PO DAILY Vitals/I & O Vital Sign - Last 24 Hours 05/04/21 05/04/21 05/04/21 05/04/21 09:31 11:00 15:00 19:52 Temp 97.2 97.0 98.8 97.2 97.0 98.8 Pulse 85 80 59 58 Resp 17 17 16 B/P (MAP) 124/80 142/80 (100) 112/66 (81) 119/77 (91) Pulse Ox 90 95 99 O2 Delivery NonRebreather Mask NonRebreather Mask NonRebreather Mask O2 Flow Rate 15.0 15.0 10.0 05/04/21 05/04/21 05/05/21 05/05/21 20:00 23:17 02:52 07:00 Temp 97.9 97.7 96.3 97.9 97.7 96.3 Pulse 53 52 67 Resp 18 20 17 B/P (MAP) 154/101 (118) 149/88 (108) 145/90 (108) Pulse Ox 91 94 96 O2 Delivery Non-Rebreather NonRebreather Mask NonRebreather Mask NonRebreather Mask O2 Flow Rate 15.0 10.0 10.0 10.0 05/05/21 05/05/21 07:10 08:43 Pulse 67 B/P (MAP) 145/90 O2 Flow Rate 10.0 Intake and Output0 05/04/21 05/04/21 05/05/21 15:00 23:00 07:00 Intake Total 360 ml 180 ml 600 ml Output Total 1400 ml 500 ml Balance 360 ml -1220 ml 100 ml Justicifation of Admission Dx: Justifications for Admission: Justification of Admission Dx: Yes Sepsis: Infection KATHI LINDQUIST MD May 05, 2021 08:51
--- NOTE | 2021-05-05 09:41 | PDOC ---
PULMONARY PROGRESS NOTES DATE: 05/05/21 TIME: 09:41 Subjective 100% FiO2 via nonrebreather mask Tolerating well Vitals Vital Signs Date Time Temp Pulse Resp B/P (MAP) Pulse Ox O2 Delivery O2 Flow Rate FiO2 05/05/21 08:43 67 145/90 05/05/21 07:10 10.0 05/05/21 07:00 96.3 17 96 NonRebreather Mask 96.3 Comments Visual exam done due to COVID-19 viral pneumonia. Remains on BiPAP. No paradoxical breathing. No obvious skin rash or edema. General: Alert, No acute distress Lungs: Crackles Labs Laboratory Tests Test 05/04/21 05:40 05/05/21 06:25 White Blood Count 9.1 x10^3/uL (4.0-11.0) 7.7 x10^3/uL (4.0-11.0) Red Blood Count 7.25 x10^6/uL (3.50-5.40) 7.41 x10^6/uL (3.50-5.40) Hemoglobin 14.2 g/dL (12.0-15.5) 14.2 g/dL (12.0-15.5) Hematocrit 44.4 % (36.0-47.0) 45.5 % (36.0-47.0) Mean Corpuscular Volume 61 fL (79-100) 62 fL (79-100) Mean Corpuscular Hemoglobin 20 pg (25-35) 19 pg (25-35) Mean Corpuscular Hemoglobin Concent 32 g/dL (31-37) 31 g/dL (31-37) Red Cell Distribution Width 17.3 % (11.5-14.5) 17.2 % (11.5-14.5) Platelet Count 251 x10^3/uL (140-400) 241 x10^3/uL (140-400) Neutrophils (%) (Auto) 66 % (31-73) 60 % (31-73) Lymphocytes (%) (Auto) 22 % (24-48) 26 % (24-48) Monocytes (%) (Auto) 10 % (0-9) 12 % (0-9) Eosinophils (%) (Auto) 2 % (0-3) 2 % (0-3) Basophils (%) (Auto) 0 % (0-3) 0 % (0-3) Neutrophils # (Auto) 6.0 x10^3/uL (1.8-7.7) 4.6 x10^3/uL (1.8-7.7) Lymphocytes # (Auto) 2.0 x10^3/uL (1.0-4.8) 2.0 x10^3/uL (1.0-4.8) Monocytes # (Auto) 0.9 x10^3/uL (0.0-1.1) 0.9 x10^3/uL (0.0-1.1) Eosinophils # (Auto) 0.1 x10^3/uL (0.0-0.7) 0.1 x10^3/uL (0.0-0.7) Basophils # (Auto) 0.0 x10^3/uL (0.0-0.2) 0.0 x10^3/uL (0.0-0.2) Sodium Level 137 mmol/L (136-145) 141 mmol/L (136-145) Potassium Level 3.5 mmol/L (3.5-5.1) 3.8 mmol/L (3.5-5.1) Chloride Level 102 mmol/L (98-107) 102 mmol/L (98-107) Carbon Dioxide Level 33 mmol/L (21-32) 25 mmol/L (21-32) Anion Gap 2 (6-14) 14 (6-14) Blood Urea Nitrogen 24 mg/dL (7-20) 20 mg/dL (7-20) Creatinine 0.8 mg/dL (0.6-1.0) 0.6 mg/dL (0.6-1.0) Estimated GFR (Cockcroft-Gault) 76.9 107.2 Glucose Level 86 mg/dL (70-99) 81 mg/dL (70-99) Calcium Level 8.6 mg/dL (8.5-10.1) 8.8 mg/dL (8.5-10.1) Ferritin 262 ng/mL (8-252) Total Bilirubin 0.7 mg/dL (0.2-1.0) Direct Bilirubin 0.1 mg/dL (0.0-0.2) Aspartate Amino Transf (AST/SGOT) 20 U/L (15-37) Alanine Aminotransferase (ALT/SGPT) 29 U/L (14-59) Alkaline Phosphatase 51 U/L (46-116) Total Protein 5.7 g/dL (6.4-8.2) Albumin 2.4 g/dL (3.4-5.0) Laboratory Tests Test 05/05/21 06:25 White Blood Count 7.7 x10^3/uL (4.0-11.0) Red Blood Count 7.41 x10^6/uL (3.50-5.40) Hemoglobin 14.2 g/dL (12.0-15.5) Hematocrit 45.5 % (36.0-47.0) Mean Corpuscular Volume 62 fL (79-100) Mean Corpuscular Hemoglobin 19 pg (25-35) Mean Corpuscular Hemoglobin Concent 31 g/dL (31-37) Red Cell Distribution Width 17.2 % (11.5-14.5) Platelet Count 241 x10^3/uL (140-400) Neutrophils (%) (Auto) 60 % (31-73) Lymphocytes (%) (Auto) 26 % (24-48) Monocytes (%) (Auto) 12 % (0-9) Eosinophils (%) (Auto) 2 % (0-3) Basophils (%) (Auto) 0 % (0-3) Neutrophils # (Auto) 4.6 x10^3/uL (1.8-7.7) Lymphocytes # (Auto) 2.0 x10^3/uL (1.0-4.8) Monocytes # (Auto) 0.9 x10^3/uL (0.0-1.1) Eosinophils # (Auto) 0.1 x10^3/uL (0.0-0.7) Basophils # (Auto) 0.0 x10^3/uL (0.0-0.2) Sodium Level 141 mmol/L (136-145) Potassium Level 3.8 mmol/L (3.5-5.1) Chloride Level 102 mmol/L (98-107) Carbon Dioxide Level 25 mmol/L (21-32) Anion Gap 14 (6-14) Blood Urea Nitrogen 20 mg/dL (7-20) Creatinine 0.6 mg/dL (0.6-1.0) Estimated GFR (Cockcroft-Gault) 107.2 Glucose Level 81 mg/dL (70-99) Calcium Level 8.8 mg/dL (8.5-10.1) Ferritin 262 ng/mL (8-252) Total Bilirubin 0.7 mg/dL (0.2-1.0) Direct Bilirubin 0.1 mg/dL (0.0-0.2) Aspartate Amino Transf (AST/SGOT) 20 U/L (15-37) Alanine Aminotransferase (ALT/SGPT) 29 U/L (14-59) Alkaline Phosphatase 51 U/L (46-116) Total Protein 5.7 g/dL (6.4-8.2) Albumin 2.4 g/dL (3.4-5.0) Medications Active Scripts Medications Dose Route/Sig Max Daily Dose Days Date Category Lisinopril Unknown Strength Tablet Unknown Dose PO DAILY 04/28/21 Reported Comments Chest x-ray reviewed. Diffuse bilateral patchy interstitial infiltrates and cardiomegaly Impression . 1. Acute hypoxemic respiratory failure. 2. COVID-19 viral pneumonia, sepsis. 3. Hypertension. 4. Reportedly, the patient has been vaccinated. 5. Obesity. 6. Abnormal electrolytes. 7. Elevated BUN and creatinine compatible with acute kidney injury. 8. Protein malnutrition, present upon admission. Plan . PLAN: 1. We will continue support with nonrebreather mask.. Oxygenation is better. We will closely watch respiratory status. We will try high flow cannula at 10 L if she tolerates. keep saturations 92% above 2. Steroids. Per protocol. 3. Remdesivir per protocol for 5 days. 4. Replace electrolytes as needed. 5. Status post IV fluids. 6. Follow-up labs. Creatinine has improved. 7. DVT/GI prophylaxis. 8. Empiric antibiotics with doxycycline. Discussed with RN Clinically improving OLGA LISA MD May 05, 2021 09:41
--- NOTE | 2021-05-05 10:05 | NUR ---
SS following up with discharge planning. SS reviewed pt chart and discussed with pt RN. Pt is currently requiring oxygen at ten liters nasal canula. COVID19 positive. Pt on IV Decadron and IV Doxycycline. PT/OT ordered. SS will continue to follow for discharge planning.
[2021-05-05 10:39] VITALS: BP 147/101
[2021-05-05 15:00] VITALS: BP 132/84
[2021-05-05 19:07] VITALS: BP 134/94
[2021-05-05] MEDS: DOCUSATE SODIUM 100 MG CAPSULE. PO PRN (21:33)
[2021-05-05 22:00] VITALS: BP 137/95
--- NOTE | 2021-05-06 02:00 | NUR ---
AT BEGINING OF SHIFT PT WAS ON 8 LITERS NASAL CANNULA. AT APPROX. 0200 PT'S HR WENT TO 38 AND O2 SATS TO 71%. RAISED OXYGEN TO 10 LITERS NC. HR STILL WENT INTO THE 30'S BUT SATS REMAINED 89-92 %. LCRN
[2021-05-06 03:45] VITALS: BP 154/92
[2021-05-06 05:53] LABS: CALCIUM 8.6 mg/dL (8.5-10.1); CREATININE 0.7 mg/dL (0.6-1.0); GFR 89.7; POTASSIUM 3.4 mmol/L (3.5-5.1)
[2021-05-06 06:05] LABS: BASO % 0 % (0-3); EOS # 0.1 x10^3/uL (0.0-0.7); EOS % 1 % (0-3); HEMATOCRIT 42.1 % (36.0-47.0); HEMOGLOBIN 13.4 g/dL (12.0-15.5); LYMPH # 2.3 x10^3/uL (1.0-4.8); LYMPH % 30 % (24-48); MEAN CORPUSCULAR HEMOGLOBIN 19 pg (25-35); MEAN CORPUSCULAR HGB CONC 32 g/dL (31-37); MEAN CORPUSCULAR VOLUME 61 fL (79-100); MONO # 0.8 x10^3/uL (0.0-1.1); MONO % 11 % (0-9); NEUT # 4.3 x10^3/uL (1.8-7.7); NEUT % 57 % (31-73); PLATELET COUNT 238 x10^3/uL (140-400); RED BLOOD COUNT 6.93 x10^6/uL (3.50-5.40); RED CELL DISTRIBUTION WIDTH 17.7 % (11.5-14.5); WHITE BLOOD COUNT 7.6 x10^3/uL (4.0-11.0)
[2021-05-06 07:00] VITALS: BP 150/91
[2021-05-06] MEDS: ZINC SULFATE 220 MG CAPSULE. PO SCH (07:19)
[2021-05-06] MEDS: THIAMINE 100 MG TABLET. PO SCH (07:19)
[2021-05-06] MEDS: PANTOPRAZOLE IV PUSH 40 MG VIAL. IVP SCH (07:19)
[2021-05-06] MEDS: ENOXAPARIN 40 MG/0.4 ML SYRINGE. SQ SCH ×2 (07:20→20:35)
[2021-05-06] MEDS: LACTOBACILLUS RHAMNOSUS GG 1 CAPSULE. PO SCH ×2 (07:20→20:35)
[2021-05-06] MEDS: ASCORBIC ACID 1,000 MG TABLET PO SCH ×3 (07:20→20:35)
[2021-05-06] MEDS: LISINOPRIL 10 MG TABLET PO SCH (07:20)
[2021-05-06] MEDS: DEXAMETHASONE SOD PHOS 4 MG/ML VIAL IVP SCH (07:21)
[2021-05-06] MEDS: DOXYCYCLINE HYCLATE 100 MG in IV DEXTROSE 5% 100ML 100 ML IV SCH ×2 (07:21→20:35)
--- NOTE | 2021-05-06 07:33 | PDOC ---
PROGRESS NOTES Date of Service: DATE: 05/06/21 TIME: 07:33 Chief Complaint Chief Complaint CC: Acute hypoxic respiratory failure Covid-19 viral pneumonia Sepsis Hypokalemia HTN Morbid obesity MAYRA Protein malnutrition History of Present Illness History of Present Illness HPI: Patient is a 45-year-old female with past medical history of hypertension and morbid obesity who presents with shortness of breath for the past 2 weeks that has gotten worse in the past few days. Patient says she got stung by bees 2 weeks ago she did have some dizziness today and felt like she was going to pass out. Patient states she is vaccinated for Covid. Denies any fevers, chest pain, abdominal pain, diarrhea, sick contacts, dysuria or hematuria. 04/29/21: Patient was seen and examined in the ICU today. She is currently on BiPAP 20/10. O2 saturation while being examined is at 89%. Discussed with RN. Patient currently on electrolyte replacement protocol. Chart reviewed. 04/30/21: Patient seen and examined in the ICU. She was resting with NAD. She is on BiPAP 20/10 with FiO2 of 100% and currently satting 96%. She changed to non- rebreather this morning to eat breakfast which she handled well. Her O2 sat did go down to 88% during this but is back up to 96% on the BiPAP now. K+ is now within normal range on today's lab values. Discussed with RN. Chart reviewed. 05/01/21: Patient seen and examined in the ICU today. She is resting with NAD. Making good eye contact and is alert. Patient is on non-rebreather at 100% O2 when she is examined and O2 sat is at 90%. When discussed with RN, she states that patient is predominately on BiPAP but switches to non-rebreather as needed for meals. Last night she had on the non-rebreather around 5:30pm-10:00pm and kept her O2 sat in the low 90's. The BiPAP settings are 20/10 with FiO2 of 100% and a rate of 20. Roa to bedside present. Patient has had a fair appetite and eats about 25-40% of her meals. Chart reviewed. 05/02/2021: Patient remains in ICU on BiPAP with FiO2 100%. Afebrile. Last day remdesivir today. We will continue treatment with empiric antibiotics and steroids; will change to Decadron 6 mg daily per standard of care. Chest x-ray from 04/29 showed good diffuse bilateral airspace opacities; will repeat chest x- ray today. Critical care time 30 minutes spent reviewing charts, reviewing labs, reviewing imaging, discussion with RN. 05/03/2021: ferritin 3264 FiO2 100%. Afebrile. Last day remdesivir 05-02 . We will continue treatment with empiric antibiotics and steroids; will change to Decadron 6 mg daily per standard of care. Chest x-ray from 04/29 showed good diffuse bilateral airspace opacities; will repeat chest x-ray today. 36 minutes spent reviewing charts, reviewing labs, reviewing imaging, discussion with RN. 100% FiO2 via non-rebreather mask Slight interval decrease in diffuse lower lobe predominant interstitial infiltrate. cxr 05-02 acute vasomotor nephropathy improved D/W RN 05/04/2021: ferritin 3264 crp 34.9 FiO2 100%. Afebrile. Last day remdesivir 05-02 . We will continue treatment with empiric antibiotics and steroids; will change to Decadron 6 mg daily per standard of care. Chest x-ray from 04/29 showed good diffuse bilateral airspace opacities; will repeat chest x-ray today. 38 minutes spent reviewing charts, reviewing labs, reviewing imaging, discussion with RN. 100% FiO2 via non-rebreather mask Slight interval decrease in diffuse lower lobe predominant interstitial infiltrate. cxr 05-02 acute vasomotor nephropathy improved D/W RN Remdesivir per protocol for 5 days. Replace electrolytes prn 05/05/2021: ferritin 3264 crp 34.9 FiO2 100%. Afebrile. Last day remdesivir 05-02 . We will continue treatment with empiric antibiotics and steroids; will change to Decadron 6 mg daily per standard of care. Chest x-ray from 04/29 showed good diffuse bilateral airspace opacities; will repeat chest x-ray today. 38 minutes spent reviewing charts, reviewing labs, reviewing imaging, discussion with RN. 100% FiO2 via non-rebreather mask Slight interval decrease in diffuse lower lobe predominant interstitial infiltrate. cxr 05-02 acute vasomotor nephropathy improved D/W RN Remdesivir per protocol for 5 days. Replace electrolytes prn 05/06/2021: ferritin 3264 crp 34.9 FERRITIN 262 9-16 6 LITERS [place] Afebrile. Last day remdesivir 05-02 . We will continue treatment with empiric antibiotics and steroids; will change to Decadron 6 mg daily per standard of care. Chest x-ray from 04/29 showed good diffuse bilateral airspace opacities; will repeat chest x-ray today. 28 minutes spent reviewing charts, reviewing labs, reviewing imaging, discussion with RN. 100% FiO2 via non-rebreather mask Slight interval decrease in diffuse lower lobe predominant interstitial infiltrate. cxr 05-02 acute vasomotor nephropathy improved D/W RN Remdesivir per protocol for 5 days. Replace electrolytes prn Vitals Vitals Vital Signs Date Time Temp Pulse Resp B/P (MAP) Pulse Ox O2 Delivery O2 Flow Rate FiO2 05/06/21 07:20 63 154/92 05/06/21 03:45 97.8 18 94 Nasal Cannula 10.0 97.8 Physical Exam General: Alert, Oriented X3, Cooperative, No acute distress Heart: Regular rate, Normal S1, Normal S2 Lungs: Crackles Abdomen: Normal bowel sounds, Soft, No tenderness Extremities: No cyanosis, No edema Skin: No rashes, No breakdown Labs LABS Laboratory Tests Test 05/06/21 05:30 White Blood Count 7.6 x10^3/uL (4.0-11.0) Red Blood Count 6.93 x10^6/uL (3.50-5.40) Hemoglobin 13.4 g/dL (12.0-15.5) Hematocrit 42.1 % (36.0-47.0) Mean Corpuscular Volume 61 fL (79-100) Mean Corpuscular Hemoglobin 19 pg (25-35) Mean Corpuscular Hemoglobin Concent 32 g/dL (31-37) Red Cell Distribution Width 17.7 % (11.5-14.5) Platelet Count 238 x10^3/uL (140-400) Neutrophils (%) (Auto) 57 % (31-73) Lymphocytes (%) (Auto) 30 % (24-48) Monocytes (%) (Auto) 11 % (0-9) Eosinophils (%) (Auto) 1 % (0-3) Basophils (%) (Auto) 0 % (0-3) Neutrophils # (Auto) 4.3 x10^3/uL (1.8-7.7) Lymphocytes # (Auto) 2.3 x10^3/uL (1.0-4.8) Monocytes # (Auto) 0.8 x10^3/uL (0.0-1.1) Eosinophils # (Auto) 0.1 x10^3/uL (0.0-0.7) Basophils # (Auto) 0.0 x10^3/uL (0.0-0.2) Sodium Level 139 mmol/L (136-145) Potassium Level 3.4 mmol/L (3.5-5.1) Chloride Level 103 mmol/L (98-107) Carbon Dioxide Level 31 mmol/L (21-32) Anion Gap 5 (6-14) Blood Urea Nitrogen 18 mg/dL (7-20) Creatinine 0.7 mg/dL (0.6-1.0) Estimated GFR (Cockcroft-Gault) 89.7 Glucose Level 85 mg/dL (70-99) Calcium Level 8.6 mg/dL (8.5-10.1) Assessment and Plan Assessmemt and Plan Problems Medical Problems: (1) Acute renal failure Status: Acute (2) Acute respiratory failure Status: Acute (3) Bee sting Status: Acute (4) Hypokalemia Status: Acute Comment Review of Relevant I have reviewed the following items anny (where applicable) has been applied. Labs Laboratory Tests Test 05/05/21 06:25 05/06/21 05:30 White Blood Count 7.7 x10^3/uL (4.0-11.0) 7.6 x10^3/uL (4.0-11.0) Red Blood Count 7.41 x10^6/uL (3.50-5.40) 6.93 x10^6/uL (3.50-5.40) Hemoglobin 14.2 g/dL (12.0-15.5) 13.4 g/dL (12.0-15.5) Hematocrit 45.5 % (36.0-47.0) 42.1 % (36.0-47.0) Mean Corpuscular Volume 62 fL (79-100) 61 fL (79-100) Mean Corpuscular Hemoglobin 19 pg (25-35) 19 pg (25-35) Mean Corpuscular Hemoglobin Concent 31 g/dL (31-37) 32 g/dL (31-37) Red Cell Distribution Width 17.2 % (11.5-14.5) 17.7 % (11.5-14.5) Platelet Count 241 x10^3/uL (140-400) 238 x10^3/uL (140-400) Neutrophils (%) (Auto) 60 % (31-73) 57 % (31-73) Lymphocytes (%) (Auto) 26 % (24-48) 30 % (24-48) Monocytes (%) (Auto) 12 % (0-9) 11 % (0-9) Eosinophils (%) (Auto) 2 % (0-3) 1 % (0-3) Basophils (%) (Auto) 0 % (0-3) 0 % (0-3) Neutrophils # (Auto) 4.6 x10^3/uL (1.8-7.7) 4.3 x10^3/uL (1.8-7.7) Lymphocytes # (Auto) 2.0 x10^3/uL (1.0-4.8) 2.3 x10^3/uL (1.0-4.8) Monocytes # (Auto) 0.9 x10^3/uL (0.0-1.1) 0.8 x10^3/uL (0.0-1.1) Eosinophils # (Auto) 0.1 x10^3/uL (0.0-0.7) 0.1 x10^3/uL (0.0-0.7) Basophils # (Auto) 0.0 x10^3/uL (0.0-0.2) 0.0 x10^3/uL (0.0-0.2) Sodium Level 141 mmol/L (136-145) 139 mmol/L (136-145) Potassium Level 3.8 mmol/L (3.5-5.1) 3.4 mmol/L (3.5-5.1) Chloride Level 102 mmol/L (98-107) 103 mmol/L (98-107) Carbon Dioxide Level 25 mmol/L (21-32) 31 mmol/L (21-32) Anion Gap 14 (6-14) 5 (6-14) Blood Urea Nitrogen 20 mg/dL (7-20) 18 mg/dL (7-20) Creatinine 0.6 mg/dL (0.6-1.0) 0.7 mg/dL (0.6-1.0) Estimated GFR (Cockcroft-Gault) 107.2 89.7 Glucose Level 81 mg/dL (70-99) 85 mg/dL (70-99) Calcium Level 8.8 mg/dL (8.5-10.1) 8.6 mg/dL (8.5-10.1) Ferritin 262 ng/mL (8-252) Total Bilirubin 0.7 mg/dL (0.2-1.0) Direct Bilirubin 0.1 mg/dL (0.0-0.2) Aspartate Amino Transf (AST/SGOT) 20 U/L (15-37) Alanine Aminotransferase (ALT/SGPT) 29 U/L (14-59) Alkaline Phosphatase 51 U/L (46-116) Total Protein 5.7 g/dL (6.4-8.2) Albumin 2.4 g/dL (3.4-5.0) Laboratory Tests Test 05/06/21 05:30 White Blood Count 7.6 x10^3/uL (4.0-11.0) Red Blood Count 6.93 x10^6/uL (3.50-5.40) Hemoglobin 13.4 g/dL (12.0-15.5) Hematocrit 42.1 % (36.0-47.0) Mean Corpuscular Volume 61 fL (79-100) Mean Corpuscular Hemoglobin 19 pg (25-35) Mean Corpuscular Hemoglobin Concent 32 g/dL (31-37) Red Cell Distribution Width 17.7 % (11.5-14.5) Platelet Count 238 x10^3/uL (140-400) Neutrophils (%) (Auto) 57 % (31-73) Lymphocytes (%) (Auto) 30 % (24-48) Monocytes (%) (Auto) 11 % (0-9) Eosinophils (%) (Auto) 1 % (0-3) Basophils (%) (Auto) 0 % (0-3) Neutrophils # (Auto) 4.3 x10^3/uL (1.8-7.7) Lymphocytes # (Auto) 2.3 x10^3/uL (1.0-4.8) Monocytes # (Auto) 0.8 x10^3/uL (0.0-1.1) Eosinophils # (Auto) 0.1 x10^3/uL (0.0-0.7) Basophils # (Auto) 0.0 x10^3/uL (0.0-0.2) Sodium Level 139 mmol/L (136-145) Potassium Level 3.4 mmol/L (3.5-5.1) Chloride Level 103 mmol/L (98-107) Carbon Dioxide Level 31 mmol/L (21-32) Anion Gap 5 (6-14) Blood Urea Nitrogen 18 mg/dL (7-20) Creatinine 0.7 mg/dL (0.6-1.0) Estimated GFR (Cockcroft-Gault) 89.7 Glucose Level 85 mg/dL (70-99) Calcium Level 8.6 mg/dL (8.5-10.1) Microbiology 04/27/21 Blood Culture - Final, Complete NO GROWTH AFTER 5 DAYS Medications Current Medications Dexamethasone Sodium Phosphate (Decadron) 10 mg 1X ONCE IV Last administered on 04/27/21at 20:04; Start 04/27/21 at 19:00; Stop 04/27/21 at 19:10; Status DC Piperacillin Sod/ Tazobactam Sod 3.375 gm/Sodium Chloride 50 ml @ 100 mls/hr 1X ONCE IV ; Start 04/27/21 at 19:00; Stop 04/27/21 at 19:29; Status UNV Vancomycin HCl (Vanco Per Pharmacy) 1 each PRN DAILY PRN MC SEE COMMENTS; Start 04/27/21 at 19:00; Status UNV Ceftriaxone Sodium (Rocephin) 1 gm 1X ONCE IVP Last administered on 04/27/21at 20:04; Start 04/27/21 at 19:15; Stop 04/27/21 at 19:16; Status DC Doxycycline Hyclate 100 mg/ Dextrose 100 ml @ 50 mls/hr 1X ONCE IV Last administered on 04/27/21at 20:00; Start 04/27/21 at 19:15; Stop 04/27/21 at 21:14; Status DC Sterile Water (WATER for RESP) 1,000 ml CONT PRN INH VIA VAPOTHERM DEVICE; Start 04/27/21 at 20:15 Piperacillin Sod/ Tazobactam Sod 4.5 gm/Sodium Chloride 100 ml @ 200 mls/hr 1X ONCE IV Last administered on 04/27/21at 20:57; Start 04/27/21 at 20:30; Stop 04/27/21 at 20:59; Status DC Potassium Bicarbonate (Potassium Effervescent Tablet) 40 meq 1X ONCE PO Last administered on 04/27/21at 20:56; Start 04/27/21 at 21:00; Stop 04/27/21 at 21:01; Status DC Potassium Chloride/Water 100 ml @ 50 mls/hr 1X ONCE IV Last administered on 04/27/21at 20:56; Start 04/27/21 at 21:00; Stop 04/27/21 at 22:59; Status DC Ondansetron HCl (Zofran) 4 mg PRN Q8HRS PRN IVP NAUSEA/VOMITING; Start 04/27/21 at 21:00; Stop 04/28/21 at 17:06; Status DC Morphine Sulfate (Morphine Sulfate) 2 mg PRN Q2HR PRN IVP PAIN; Start 04/27/21 at 21:00; Stop 04/28/21 at 20:59; Status DC Acetaminophen (Tylenol) 650 mg PRN Q4HRS PRN PO FEVER > 100.3'F; Start 04/27/21 at 21:00; Stop 04/28/21 at 17:06; Status DC Ascorbic Acid (Vitamin C) 3,000 mg TID PO Last administered on 05/06/21at 07:20; Start 04/28/21 at 14:00 Methylprednisolone Sodium Succinate (SOLU-Medrol 40MG VIAL) 40 mg Q8HRS IV Last administered on 05/02/21at 04:58; Start 04/28/21 at 14:00; Stop 05/02/21 at 08:15; Status DC Thiamine Mononitrate (Vitamin B-1) 300 mg DAILY PO Last administered on 05/06/21at 07:19; Start 04/28/21 at 13:00 Zinc Sulfate (Orazinc) 220 mg DAILY PO Last administered on 05/06/21at 07:19; Start 04/28/21 at 13:00 Sennosides (Senna) 17.2 mg PRN BID PRN PO CONSTIPATION Last administered on 05/01/21at 17:44; Start 04/28/21 at 12:00 Docusate Sodium (Colace) 100 mg PRN DAILY PRN PO HARD STOOLS Last administered on 05/05/21at 21:33; Start 04/28/21 at 12:00 Ondansetron HCl (Zofran) 4 mg PRN Q6HRS PRN IVP NAUSEA/VOMITING, 1st CHOICE; Start 04/28/21 at 12:00 Dextrose (Dextrose 50%-Water Syringe) 12.5 gm PRN Q15MIN PRN IV SEE COMMENTS; Start 04/28/21 at 12:00 Sodium Chloride 1,000 ml @ 100 mls/hr Q10H IV Last administered on 04/29/21at 07:50; Start 04/28/21 at 12:00; Stop 04/29/21 at 11:59; Status DC Acetaminophen (Tylenol) 650 mg PRN Q4HRS PRN PO TEMP OVER 100.4F OR MILD PAIN; Start 04/28/21 at 12:00 Enoxaparin Sodium (Lovenox 40mg Syringe) 40 mg Q24H SQ Last administered on 04/29/21at 07:49; Start 04/28/21 at 12:15; Stop 04/29/21 at 15:49; Status DC Pantoprazole Sodium (Protonix) 40 mg DAILYAC PO Last administered on 04/28/21at 16:56; Start 04/28/21 at 16:30; Stop 04/29/21 at 08:26; Status DC Prochlorperazine Edisylate (Compazine) 10 mg PRN Q6HRS PRN IV NAUSEA/VOMITING, 2nd CHOICE; Start 04/28/21 at 12:00 Remdesivir 200 mg/ Sodium Chloride 210 ml @ 210 mls/hr 1X ONCE IV Last administered on 04/28/21at 13:29; Start 04/28/21 at 13:00; Stop 04/28/21 at 13:59; Status DC Remdesivir 100 mg/ Sodium Chloride 230 ml @ 460 mls/hr Q24H IV Last administered on 05/02/21at 13:29; Start 04/29/21 at 13:00; Stop 05/02/21 at 13:29; Status DC Lorazepam (Ativan) 0.25 mg PRN Q8HRS PRN PO ANXIETY / AGITATION; Start 04/28/21 at 12:30 Potassium Chloride/Water 100 ml @ 100 mls/hr Q1H IV ; Start 04/29/21 at 05:45; Stop 04/29/21 at 07:44; Status UNV Potassium Chloride/Water 100 ml @ 100 mls/hr Q1H IV Last administered on 04/29/21at 09:15; Start 04/29/21 at 06:00; Stop 04/29/21 at 09:59; Status DC Pantoprazole Sodium (PROTONIX VIAL for IV PUSH) 40 mg DAILYAC IVP Last administered on 05/06/21at 07:19; Start 04/29/21 at 09:00 Potassium Chloride/Water 20 ml @ 20 mls/hr Q1H IV Last administered on 04/29/21at 16:08; Start 04/29/21 at 13:30; Stop 04/29/21 at 15:29; Status DC Enoxaparin Sodium (Lovenox 40mg Syringe) 40 mg Q12HR SQ Last administered on 05/06/21at 07:20; Start 04/29/21 at 21:00 Doxycycline Hyclate 100 mg/ Dextrose 100 ml @ 50 mls/hr Q12HR IV Last administered on 05/06/21at 07:21; Start 04/29/21 at 17:00 Lactobacillus Rhamnosus (Culturelle) 1 cap BID PO Last administered on 05/06/21at 07:20; Start 04/29/21 at 21:00 Lisinopril (Prinivil) 10 mg DAILY PO Last administered on 05/06/21at 07:20; Start 05/01/21 at 21:00 Hydralazine HCl (Apresoline Inj) 10 mg PRN Q4HRS PRN IVP ELEVATED BP, SEE COMMENTS Last administered on 05/02/21at 23:08; Start 05/01/21 at 19:45 Dexamethasone Sodium Phosphate (Decadron) 6 mg DAILY IVP Last administered on 05/06/21at 07:21; Start 05/02/21 at 09:00 Active Scripts Active Reported Lisinopril Unknown Strength Tablet Unknown Dose PO DAILY Vitals/I & O Vital Sign - Last 24 Hours 05/05/21 05/05/21 05/05/21 05/05/21 08:00 08:43 10:39 15:00 Temp 97.8 98.0 97.8 98.0 Pulse 67 75 69 Resp 20 18 B/P (MAP) 145/90 147/101 (116) 132/84 (100) Pulse Ox 91 92 O2 Delivery Nasal Cannula NonRebreather Mask NonRebreather Mask O2 Flow Rate 10.0 10.0 10.0 05/05/21 05/05/21 05/05/21 05/06/21 19:07 20:00 22:00 03:45 Temp 98.0 98.4 97.8 98.0 98.4 97.8 Pulse 70 57 63 Resp 18 18 18 B/P (MAP) 134/94 (107) 137/95 (109) 154/92 (112) Pulse Ox 97 91 94 O2 Delivery Nasal Cannula Nasal Cannula Nasal Cannula Nasal Cannula O2 Flow Rate 8.0 10.0 8.0 10.0 05/06/21 07:20 Pulse 63 B/P (MAP) 154/92 Intake and Output 05/05/21 05/05/21 05/06/21 15:00 23:00 07:00 Intake Total 820 ml 950 ml 500 ml Output Total 950 ml 450 ml 725 ml Balance -130 ml 500 ml -225 ml Justicifation of Admission Dx: Justifications for Admission: Justification of Admission Dx: Yes Sepsis: Infection KATHI LINDQUIST MD May 06, 2021 07:33
[2021-05-06 11:00] VITALS: BP 138/93
[2021-05-06] MEDS ORDERED: POTASSIUM CHLORIDE 20 MEQ TABLET.ER. PO ONE (11:30)
--- NOTE | 2021-05-06 11:44 | PDOC ---
Provider Note Date of Service: DATE: 05/06/21 TIME: 11:44 Provider Note Patient not seen today. She was in the restroom. Justifications for Admission Other Justification Acute hypoxic respiratory failure COVID-19 positive test (U07.1, COVID-19) with Acute Pneumonia (J12.89, Other viral pneumonia) (If respiratory failure or sepsis present, add as separate assessment) OLGA LISA MD May 06, 2021 11:44
--- NOTE | 2021-05-06 13:50 | NUR ---
SS following up with discharge planning. SS reviewed pt chart and discussed with pt RN. Pt is currently requiring oxygen at eight liters nasal canula. COVID19 positive. Pt on IV Decadron and IV Doxycycline. PT/OT ordered. PT recommended home independent. SS will continue to follow for discharge planning.
[2021-05-06 15:00] VITALS: BP 128/79
--- NOTE | 2021-05-06 15:07 | RAD ---
XR CHEST 1V INDICATION: Reason: PNEUMONIA / Spl. Instructions: / History: . COMPARISON STUDY: 05/02/2021. FINDINGS: Lungs: Normal lung volume. Slightly improved patchy bilateral opacity. Pleura: No pleural effusion or pneumothorax. Heart and Mediastinum: Stable cardiomediastinal silhouette and great vessels. Bones and Soft Tissues: Stable regional skeleton and soft tissues. IMPRESSION: Slightly improved patchy bilateral opacities. Electronically signed by: Beau Antonio MD (05/06/2021 3:04 PM) [facility]loz
[2021-05-06 19:00] VITALS: BP 142/77
[2021-05-06 22:41] VITALS: BP 153/103
[2021-05-07 02:32] VITALS: BP 139/70
[2021-05-07] MEDS: PANTOPRAZOLE 40 MG TABLET.DR. PO SCH (06:09)
[2021-05-07 06:37] LABS: BASO # 0.1 x10^3/uL (0.0-0.2); BASO % 1 % (0-3); EOS # 0.1 x10^3/uL (0.0-0.7); EOS % 1 % (0-3); HEMATOCRIT 41.4 % (36.0-47.0); HEMOGLOBIN 13.3 g/dL (12.0-15.5); LYMPH # 3.4 x10^3/uL (1.0-4.8); LYMPH % 38 % (24-48); MEAN CORPUSCULAR HEMOGLOBIN 20 pg (25-35); MEAN CORPUSCULAR HGB CONC 32 g/dL (31-37); MEAN CORPUSCULAR VOLUME 61 fL (79-100); MONO # 1.1 x10^3/uL (0.0-1.1); MONO % 12 % (0-9); NEUT # 4.2 x10^3/uL (1.8-7.7); NEUT % 48 % (31-73); PLATELET COUNT 254 x10^3/uL (140-400); RED CELL DISTRIBUTION WIDTH 17.3 % (11.5-14.5); WHITE BLOOD COUNT 8.8 x10^3/uL (4.0-11.0)
[2021-05-07 06:44] LABS: CALCIUM 8.9 mg/dL (8.5-10.1); CREATININE 0.6 mg/dL (0.6-1.0); GFR 107.2; POTASSIUM 3.4 mmol/L (3.5-5.1)
[2021-05-07 07:55] VITALS: BP 135/68
--- NOTE | 2021-05-07 10:04 | PDOC ---
PROGRESS NOTES Date of Service: DATE: 05/07/21 TIME: 10:03 Chief Complaint Chief Complaint CC: Acute hypoxic respiratory failure Covid-19 viral pneumonia Sepsis Hypokalemia HTN Morbid obesity MAYRA Protein malnutrition History of Present Illness History of Present Illness HPI: Patient is a 45-year-old female with past medical history of hypertension and morbid obesity who presents with shortness of breath for the past 2 weeks that has gotten worse in the past few days. Patient says she got stung by bees 2 weeks ago she did have some dizziness today and felt like she was going to pass out. Patient states she is vaccinated for Covid. Denies any fevers, chest pain, abdominal pain, diarrhea, sick contacts, dysuria or hematuria. 04/29/21: Patient was seen and examined in the ICU today. She is currently on BiPAP 20/10. O2 saturation while being examined is at 89%. Discussed with RN. Patient currently on electrolyte replacement protocol. Chart reviewed. 04/30/21: Patient seen and examined in the ICU. She was resting with NAD. She is on BiPAP 20/10 with FiO2 of 100% and currently satting 96%. She changed to non- rebreather this morning to eat breakfast which she handled well. Her O2 sat did go down to 88% during this but is back up to 96% on the BiPAP now. K+ is now within normal range on today's lab values. Discussed with RN. Chart reviewed. 05/01/21: Patient seen and examined in the ICU today. She is resting with NAD. Making good eye contact and is alert. Patient is on non-rebreather at 100% O2 when she is examined and O2 sat is at 90%. When discussed with RN, she states that patient is predominately on BiPAP but switches to non-rebreather as needed for meals. Last night she had on the non-rebreather around 5:30pm-10:00pm and kept her O2 sat in the low 90's. The BiPAP settings are 20/10 with FiO2 of 100% and a rate of 20. Roa to bedside present. Patient has had a fair appetite and eats about 25-40% of her meals. Chart reviewed. 05/02/2021: Patient remains in ICU on BiPAP with FiO2 100%. Afebrile. Last day remdesivir today. We will continue treatment with empiric antibiotics and steroids; will change to Decadron 6 mg daily per standard of care. Chest x-ray from 04/29 showed good diffuse bilateral airspace opacities; will repeat chest x- ray today. Critical care time 30 minutes spent reviewing charts, reviewing labs, reviewing imaging, discussion with RN. 05/03/2021: ferritin 3264 FiO2 100%. Afebrile. Last day remdesivir 05-02 . We will continue treatment with empiric antibiotics and steroids; will change to Decadron 6 mg daily per standard of care. Chest x-ray from 04/29 showed good diffuse bilateral airspace opacities; will repeat chest x-ray today. 36 minutes spent reviewing charts, reviewing labs, reviewing imaging, discussion with RN. 100% FiO2 via non-rebreather mask Slight interval decrease in diffuse lower lobe predominant interstitial infiltrate. cxr 05-02 acute vasomotor nephropathy improved D/W RN 05/04/2021: ferritin 3264 crp 34.9 FiO2 100%. Afebrile. Last day remdesivir 05-02 . We will continue treatment with empiric antibiotics and steroids; will change to Decadron 6 mg daily per standard of care. Chest x-ray from 04/29 showed good diffuse bilateral airspace opacities; will repeat chest x-ray today. 38 minutes spent reviewing charts, reviewing labs, reviewing imaging, discussion with RN. 100% FiO2 via non-rebreather mask Slight interval decrease in diffuse lower lobe predominant interstitial infiltrate. cxr 05-02 acute vasomotor nephropathy improved D/W RN Remdesivir per protocol for 5 days. Replace electrolytes prn 05/05/2021: ferritin 3264 crp 34.9 FiO2 100%. Afebrile. Last day remdesivir 05-02 . We will continue treatment with empiric antibiotics and steroids; will change to Decadron 6 mg daily per standard of care. Chest x-ray from 04/29 showed good diffuse bilateral airspace opacities; will repeat chest x-ray today. 38 minutes spent reviewing charts, reviewing labs, reviewing imaging, discussion with RN. 100% FiO2 via non-rebreather mask Slight interval decrease in diffuse lower lobe predominant interstitial infiltrate. cxr 05-02 acute vasomotor nephropathy improved D/W RN Remdesivir per protocol for 5 days. Replace electrolytes prn 05/06/2021: ferritin 3264 crp 34.9 FERRITIN 262 9-16 6 LITERS [place] Afebrile. Last day remdesivir 05-02 . We will continue treatment with empiric antibiotics and steroids; will change to Decadron 6 mg daily per standard of care. Chest x-ray from 04/29 showed good diffuse bilateral airspace opacities; will repeat chest x-ray today. 28 minutes spent reviewing charts, reviewing labs, reviewing imaging, discussion with RN. 100% FiO2 via non-rebreather mask Slight interval decrease in diffuse lower lobe predominant interstitial infiltrate. cxr 05-02 acute vasomotor nephropathy improved D/W RN Remdesivir per protocol for 5 days. Replace electrolytes prn 05/07/2021: ferritin 3264 crp 34.9 FERRITIN 262 9-16 6 L[place] Afebrile. Last day remdesivir 05-02 . We will continue treatment with empiric antibiotics and steroids; will change to Decadron 6 mg daily per standard of care. Chest x-ray from 04/29 showed good diffuse bilateral airspace opacities; will repeat chest x-ray today. 28 minutes spent reviewing charts, reviewing labs, reviewing imaging, discussion with RN. 100% FiO2 via non-rebreather mask on admit Slight interval decrease in diffuse lower lobe predominant interstitial infiltrate. cxr 05-02 acute vasomotor nephropathy improved D/W RN Remdesivir per protocol for 5 days. Replace electrolytes prn Vitals Vitals Vital Signs Date Time Temp Pulse Resp B/P (MAP) Pulse Ox O2 Delivery O2 Flow Rate FiO2 05/07/21 02:32 96.8 51 18 139/70 (93) 97 Nasal Cannula 8.0 96.8 Physical Exam General: Alert, Oriented X3, Cooperative, No acute distress Heart: Regular rate, Normal S1, Normal S2 Lungs: Crackles Abdomen: Normal bowel sounds, Soft, No tenderness Extremities: No cyanosis, No edema Skin: No rashes, No breakdown Labs LABS Laboratory Tests Test 05/07/21 06:25 White Blood Count 8.8 x10^3/uL (4.0-11.0) Red Blood Count 6.80 x10^6/uL (3.50-5.40) Hemoglobin 13.3 g/dL (12.0-15.5) Hematocrit 41.4 % (36.0-47.0) Mean Corpuscular Volume 61 fL (79-100) Mean Corpuscular Hemoglobin 20 pg (25-35) Mean Corpuscular Hemoglobin Concent 32 g/dL (31-37) Red Cell Distribution Width 17.3 % (11.5-14.5) Platelet Count 254 x10^3/uL (140-400) Neutrophils (%) (Auto) 48 % (31-73) Lymphocytes (%) (Auto) 38 % (24-48) Monocytes (%) (Auto) 12 % (0-9) Eosinophils (%) (Auto) 1 % (0-3) Basophils (%) (Auto) 1 % (0-3) Neutrophils # (Auto) 4.2 x10^3/uL (1.8-7.7) Lymphocytes # (Auto) 3.4 x10^3/uL (1.0-4.8) Monocytes # (Auto) 1.1 x10^3/uL (0.0-1.1) Eosinophils # (Auto) 0.1 x10^3/uL (0.0-0.7) Basophils # (Auto) 0.1 x10^3/uL (0.0-0.2) Sodium Level 140 mmol/L (136-145) Potassium Level 3.4 mmol/L (3.5-5.1) Chloride Level 105 mmol/L (98-107) Carbon Dioxide Level 28 mmol/L (21-32) Anion Gap 7 (6-14) Blood Urea Nitrogen 16 mg/dL (7-20) Creatinine 0.6 mg/dL (0.6-1.0) Estimated GFR (Cockcroft-Gault) 107.2 Glucose Level 80 mg/dL (70-99) Calcium Level 8.9 mg/dL (8.5-10.1) C-Reactive Protein, Quantitative 5.1 mg/L (0-3.3) Assessment and Plan Assessmemt and Plan Problems Medical Problems: (1) Acute renal failure Status: Acute (2) Acute respiratory failure Status: Acute (3) Bee sting Status: Acute (4) Hypokalemia Status: Acute Comment Review of Relevant I have reviewed the following items anny (where applicable) has been applied. Labs Laboratory Tests Test 05/06/21 05:30 05/07/21 06:25 White Blood Count 7.6 x10^3/uL (4.0-11.0) 8.8 x10^3/uL (4.0-11.0) Red Blood Count 6.93 x10^6/uL (3.50-5.40) 6.80 x10^6/uL (3.50-5.40) Hemoglobin 13.4 g/dL (12.0-15.5) 13.3 g/dL (12.0-15.5) Hematocrit 42.1 % (36.0-47.0) 41.4 % (36.0-47.0) Mean Corpuscular Volume 61 fL (79-100) 61 fL (79-100) Mean Corpuscular Hemoglobin 19 pg (25-35) 20 pg (25-35) Mean Corpuscular Hemoglobin Concent 32 g/dL (31-37) 32 g/dL (31-37) Red Cell Distribution Width 17.7 % (11.5-14.5) 17.3 % (11.5-14.5) Platelet Count 238 x10^3/uL (140-400) 254 x10^3/uL (140-400) Neutrophils (%) (Auto) 57 % (31-73) 48 % (31-73) Lymphocytes (%) (Auto) 30 % (24-48) 38 % (24-48) Monocytes (%) (Auto) 11 % (0-9) 12 % (0-9) Eosinophils (%) (Auto) 1 % (0-3) 1 % (0-3) Basophils (%) (Auto) 0 % (0-3) 1 % (0-3) Neutrophils # (Auto) 4.3 x10^3/uL (1.8-7.7) 4.2 x10^3/uL (1.8-7.7) Lymphocytes # (Auto) 2.3 x10^3/uL (1.0-4.8) 3.4 x10^3/uL (1.0-4.8) Monocytes # (Auto) 0.8 x10^3/uL (0.0-1.1) 1.1 x10^3/uL (0.0-1.1) Eosinophils # (Auto) 0.1 x10^3/uL (0.0-0.7) 0.1 x10^3/uL (0.0-0.7) Basophils # (Auto) 0.0 x10^3/uL (0.0-0.2) 0.1 x10^3/uL (0.0-0.2) Sodium Level 139 mmol/L (136-145) 140 mmol/L (136-145) Potassium Level 3.4 mmol/L (3.5-5.1) 3.4 mmol/L (3.5-5.1) Chloride Level 103 mmol/L (98-107) 105 mmol/L (98-107) Carbon Dioxide Level 31 mmol/L (21-32) 28 mmol/L (21-32) Anion Gap 5 (6-14) 7 (6-14) Blood Urea Nitrogen 18 mg/dL (7-20) 16 mg/dL (7-20) Creatinine 0.7 mg/dL (0.6-1.0) 0.6 mg/dL (0.6-1.0) Estimated GFR (Cockcroft-Gault) 89.7 107.2 Glucose Level 85 mg/dL (70-99) 80 mg/dL (70-99) Calcium Level 8.6 mg/dL (8.5-10.1) 8.9 mg/dL (8.5-10.1) C-Reactive Protein, Quantitative 5.1 mg/L (0-3.3) Laboratory Tests Test 05/07/21 06:25 White Blood Count 8.8 x10^3/uL (4.0-11.0) Red Blood Count 6.80 x10^6/uL (3.50-5.40) Hemoglobin 13.3 g/dL (12.0-15.5) Hematocrit 41.4 % (36.0-47.0) Mean Corpuscular Volume 61 fL (79-100) Mean Corpuscular Hemoglobin 20 pg (25-35) Mean Corpuscular Hemoglobin Concent 32 g/dL (31-37) Red Cell Distribution Width 17.3 % (11.5-14.5) Platelet Count 254 x10^3/uL (140-400) Neutrophils (%) (Auto) 48 % (31-73) Lymphocytes (%) (Auto) 38 % (24-48) Monocytes (%) (Auto) 12 % (0-9) Eosinophils (%) (Auto) 1 % (0-3) Basophils (%) (Auto) 1 % (0-3) Neutrophils # (Auto) 4.2 x10^3/uL (1.8-7.7) Lymphocytes # (Auto) 3.4 x10^3/uL (1.0-4.8) Monocytes # (Auto) 1.1 x10^3/uL (0.0-1.1) Eosinophils # (Auto) 0.1 x10^3/uL (0.0-0.7) Basophils # (Auto) 0.1 x10^3/uL (0.0-0.2) Sodium Level 140 mmol/L (136-145) Potassium Level 3.4 mmol/L (3.5-5.1) Chloride Level 105 mmol/L (98-107) Carbon Dioxide Level 28 mmol/L (21-32) Anion Gap 7 (6-14) Blood Urea Nitrogen 16 mg/dL (7-20) Creatinine 0.6 mg/dL (0.6-1.0) Estimated GFR (Cockcroft-Gault) 107.2 Glucose Level 80 mg/dL (70-99) Calcium Level 8.9 mg/dL (8.5-10.1) C-Reactive Protein, Quantitative 5.1 mg/L (0-3.3) Microbiology 04/27/21 Blood Culture - Final, Complete NO GROWTH AFTER 5 DAYS Medications Current Medications Dexamethasone Sodium Phosphate (Decadron) 10 mg 1X ONCE IV Last administered on 04/27/21at 20:04; Start 04/27/21 at 19:00; Stop 04/27/21 at 19:10; Status DC Piperacillin Sod/ Tazobactam Sod 3.375 gm/Sodium Chloride 50 ml @ 100 mls/hr 1X ONCE IV ; Start 04/27/21 at 19:00; Stop 04/27/21 at 19:29; Status UNV Vancomycin HCl (Vanco Per Pharmacy) 1 each PRN DAILY PRN MC SEE COMMENTS; Start 04/27/21 at 19:00; Status UNV Ceftriaxone Sodium (Rocephin) 1 gm 1X ONCE IVP Last administered on 04/27/21at 20:04; Start 04/27/21 at 19:15; Stop 04/27/21 at 19:16; Status DC Doxycycline Hyclate 100 mg/ Dextrose 100 ml @ 50 mls/hr 1X ONCE IV Last administered on 04/27/21at 20:00; Start 04/27/21 at 19:15; Stop 04/27/21 at 21:14; Status DC Sterile Water (WATER for RESP) 1,000 ml CONT PRN INH VIA VAPOTHERM DEVICE; Start 04/27/21 at 20:15 Piperacillin Sod/ Tazobactam Sod 4.5 gm/Sodium Chloride 100 ml @ 200 mls/hr 1X ONCE IV Last administered on 04/27/21at 20:57; Start 04/27/21 at 20:30; Stop 04/27/21 at 20:59; Status DC Potassium Bicarbonate (Potassium Effervescent Tablet) 40 meq 1X ONCE PO Last administered on 04/27/21at 20:56; Start 04/27/21 at 21:00; Stop 04/27/21 at 21:01; Status DC Potassium Chloride/Water 100 ml @ 50 mls/hr 1X ONCE IV Last administered on 04/27/21at 20:56; Start 04/27/21 at 21:00; Stop 04/27/21 at 22:59; Status DC Ondansetron HCl (Zofran) 4 mg PRN Q8HRS PRN IVP NAUSEA/VOMITING; Start 04/27/21 at 21:00; Stop 04/28/21 at 17:06; Status DC Morphine Sulfate (Morphine Sulfate) 2 mg PRN Q2HR PRN IVP PAIN; Start 04/27/21 at 21:00; Stop 04/28/21 at 20:59; Status DC Acetaminophen (Tylenol) 650 mg PRN Q4HRS PRN PO FEVER > 100.3'F; Start 04/27/21 at 21:00; Stop 04/28/21 at 17:06; Status DC Ascorbic Acid (Vitamin C) 3,000 mg TID PO Last administered on 05/06/21at 20:35; Start 04/28/21 at 14:00 Methylprednisolone Sodium Succinate (SOLU-Medrol 40MG VIAL) 40 mg Q8HRS IV Last administered on 05/02/21at 04:58; Start 04/28/21 at 14:00; Stop 05/02/21 at 08:15; Status DC Thiamine Mononitrate (Vitamin B-1) 300 mg DAILY PO Last administered on 05/06/21at 07:19; Start 04/28/21 at 13:00 Zinc Sulfate (Orazinc) 220 mg DAILY PO Last administered on 05/06/21at 07:19; Start 04/28/21 at 13:00 Sennosides (Senna) 17.2 mg PRN BID PRN PO CONSTIPATION Last administered on 05/01/21at 17:44; Start 04/28/21 at 12:00 Docusate Sodium (Colace) 100 mg PRN DAILY PRN PO HARD STOOLS Last administered on 05/05/21at 21:33; Start 04/28/21 at 12:00 Ondansetron HCl (Zofran) 4 mg PRN Q6HRS PRN IVP NAUSEA/VOMITING, 1st CHOICE; Start 04/28/21 at 12:00 Dextrose (Dextrose 50%-Water Syringe) 12.5 gm PRN Q15MIN PRN IV SEE COMMENTS; Start 04/28/21 at 12:00 Sodium Chloride 1,000 ml @ 100 mls/hr Q10H IV Last administered on 04/29/21at 07:50; Start 04/28/21 at 12:00; Stop 04/29/21 at 11:59; Status DC Acetaminophen (Tylenol) 650 mg PRN Q4HRS PRN PO TEMP OVER 100.4F OR MILD PAIN; Start 04/28/21 at 12:00 Enoxaparin Sodium (Lovenox 40mg Syringe) 40 mg Q24H SQ Last administered on 04/29/21at 07:49; Start 04/28/21 at 12:15; Stop 04/29/21 at 15:49; Status DC Pantoprazole Sodium (Protonix) 40 mg DAILYAC PO Last administered on 04/28/21at 16:56; Start 04/28/21 at 16:30; Stop 04/29/21 at 08:26; Status DC Prochlorperazine Edisylate (Compazine) 10 mg PRN Q6HRS PRN IV NAUSEA/VOMITING, 2nd CHOICE; Start 04/28/21 at 12:00 Remdesivir 200 mg/ Sodium Chloride 210 ml @ 210 mls/hr 1X ONCE IV Last administered on 04/28/21at 13:29; Start 04/28/21 at 13:00; Stop 04/28/21 at 13:59; Status DC Remdesivir 100 mg/ Sodium Chloride 230 ml @ 460 mls/hr Q24H IV Last administered on 05/02/21at 13:29; Start 04/29/21 at 13:00; Stop 05/02/21 at 13: 29; Status DC Lorazepam (Ativan) 0.25 mg PRN Q8HRS PRN PO ANXIETY / AGITATION; Start 04/28/21 at 12:30 Potassium Chloride/Water 100 ml @ 100 mls/hr Q1H IV ; Start 04/29/21 at 05:45; Stop 04/29/21 at 07:44; Status UNV Potassium Chloride/Water 100 ml @ 100 mls/hr Q1H IV Last administered on 04/29/21at 09:15; Start 04/29/21 at 06:00; Stop 04/29/21 at 09:59; Status DC Pantoprazole Sodium (PROTONIX VIAL for IV PUSH) 40 mg DAILYAC IVP Last administered on 05/06/21at 07:19; Start 04/29/21 at 09:00; Stop 05/06/21 at 09:41; Status DC Potassium Chloride/Water 20 ml @ 20 mls/hr Q1H IV Last administered on 04/29/21at 16:08; Start 04/29/21 at 13:30; Stop 04/29/21 at 15:29; Status DC Enoxaparin Sodium (Lovenox 40mg Syringe) 40 mg Q12HR SQ Last administered on 05/06/21at 20:35; Start 04/29/21 at 21:00 Doxycycline Hyclate 100 mg/ Dextrose 100 ml @ 50 mls/hr Q12HR IV Last administered on 05/06/21at 20:35; Start 04/29/21 at 17:00 Lactobacillus Rhamnosus (Culturelle) 1 cap BID PO Last administered on 05/06/21at 20:35; Start 04/29/21 at 21:00 Lisinopril (Prinivil) 10 mg DAILY PO Last administered on 05/06/21at 07:20; Start 05/01/21 at 21:00 Hydralazine HCl (Apresoline Inj) 10 mg PRN Q4HRS PRN IVP ELEVATED BP, SEE COMMENTS Last administered on 05/02/21at 23:08; Start 05/01/21 at 19:45 Dexamethasone Sodium Phosphate (Decadron) 6 mg DAILY IVP Last administered on 05/06/21at 07:21; Start 05/02/21 at 09:00 Pantoprazole Sodium (Protonix) 40 mg DAILYAC PO Last administered on 05/07/21at 06:09; Start 05/07/21 at 07:30 Potassium Chloride (Klor-Con) 40 meq 1X ONCE PO Last administered on 05/06/21at 11:51; Start 05/06/21 at 11:30; Stop 05/06/21 at 11:31; Status DC Active Scripts Active Reported Lisinopril Unknown Strength Tablet Unknown Dose PO DAILY Vitals/I & O Vital Sign - Last 24 Hours 05/06/21 05/06/21 05/06/21 05/06/21 11:00 15:00 19:00 20:00 Temp 97.6 96.7 96.2 97.6 96.7 96.2 Pulse 84 59 56 Resp 17 17 16 B/P (MAP) 138/93 (108) 128/79 (95) 142/77 (98) Pulse Ox 93 97 98 O2 Delivery Nasal Cannula Nasal Cannula Nasal Cannula Nasal Cannula O2 Flow Rate 8.0 8.0 8.0 8.0 05/06/21 05/07/21 22:41 02:32 Temp 96.5 96.8 96.5 96.8 Pulse 54 51 Resp 16 18 B/P (MAP) 153/103 (120) 139/70 (93) Pulse Ox 98 97 O2 Delivery Nasal Cannula Nasal Cannula O2 Flow Rate 8.0 8.0 Intake and Output 05/06/21 05/06/21 05/07/21 15:00 23:00 07:00 Intake Total 580 ml 340 ml 0 ml Output Total 375 ml 400 ml Balance 205 ml -60 ml 0 ml Justicifation of Admission Dx: Justifications for Admission: Justification of Admission Dx: Yes Sepsis: Infection KATHI LINDQUIST MD May 07, 2021 10:04
[2021-05-07] MEDS: LACTOBACILLUS RHAMNOSUS GG 1 CAPSULE. PO SCH ×2 (10:09→21:15)
[2021-05-07] MEDS: THIAMINE 100 MG TABLET. PO SCH (10:09)
[2021-05-07] MEDS: DOXYCYCLINE HYCLATE 100 MG in IV DEXTROSE 5% 100ML 100 ML IV SCH ×2 (10:09→21:16)
[2021-05-07] MEDS: ZINC SULFATE 220 MG CAPSULE. PO SCH (10:09)
[2021-05-07] MEDS: ASCORBIC ACID 1,000 MG TABLET PO SCH ×3 (10:09→21:15)
[2021-05-07] MEDS: LISINOPRIL 10 MG TABLET PO SCH (10:10)
[2021-05-07] MEDS: DEXAMETHASONE SOD PHOS 4 MG/ML VIAL IVP SCH (10:10)
[2021-05-07] MEDS: ENOXAPARIN 40 MG/0.4 ML SYRINGE. SQ SCH ×2 (10:11→21:15)
[2021-05-07 11:00] VITALS: BP 133/65
[2021-05-07 14:41] VITALS: BP 124/77
[2021-05-07 19:33] VITALS: BP 156/101
[2021-05-07 22:35] VITALS: BP 150/77
[2021-05-08 02:58] VITALS: BP 154/72
[2021-05-08] MEDS: PANTOPRAZOLE 40 MG TABLET.DR. PO SCH (05:46)
[2021-05-08 06:34] LABS: CALCIUM 8.7 mg/dL (8.5-10.1); CREATININE 0.6 mg/dL (0.6-1.0); GFR 107.2; POTASSIUM 3.7 mmol/L (3.5-5.1)
[2021-05-08 07:09] LABS: BASO % 1 % (0-3); EOS % 1 % (0-3); HEMOGLOBIN 13.2 g/dL (12.0-15.5); LYMPH % 31 % (24-48); MEAN CORPUSCULAR HEMOGLOBIN 19 pg (25-35); MEAN CORPUSCULAR HGB CONC 31 g/dL (31-37); MEAN CORPUSCULAR VOLUME 61 fL (79-100); MONO % 10 % (0-9); NEUT # 5.6 x10^3/uL (1.8-7.7); NEUT % 58 % (31-73); PLATELET COUNT 267 x10^3/uL (140-400); RED BLOOD COUNT 6.85 x10^6/uL (3.50-5.40); RED CELL DISTRIBUTION WIDTH 17.6 % (11.5-14.5); WHITE BLOOD COUNT 9.7 x10^3/uL (4.0-11.0)
[2021-05-08 07:50] VITALS: BP 142/91
[2021-05-08] MEDS: ENOXAPARIN 40 MG/0.4 ML SYRINGE. SQ SCH (09:20)
[2021-05-08] MEDS: LISINOPRIL 10 MG TABLET PO SCH (09:20)
[2021-05-08] MEDS: THIAMINE 100 MG TABLET. PO SCH (09:20)
[2021-05-08] MEDS: DEXAMETHASONE SOD PHOS 4 MG/ML VIAL IVP SCH (09:20)
[2021-05-08] MEDS: LACTOBACILLUS RHAMNOSUS GG 1 CAPSULE. PO SCH (09:20)
[2021-05-08] MEDS: ASCORBIC ACID 1,000 MG TABLET PO SCH ×2 (09:21→14:00)
[2021-05-08] MEDS: ZINC SULFATE 220 MG CAPSULE. PO SCH (09:21)
[2021-05-08] MEDS: DOXYCYCLINE HYCLATE 100 MG in IV DEXTROSE 5% 100ML 100 ML IV SCH (09:23)
--- NOTE | 2021-05-08 09:37 | PDOC ---
PROGRESS NOTES Date of Service: DATE: 05/08/21 TIME: 09:37 Chief Complaint Chief Complaint CC: Acute hypoxic respiratory failure Covid-19 viral pneumonia Sepsis Hypokalemia HTN Morbid obesity MAYRA Protein malnutrition History of Present Illness History of Present Illness HPI: Patient is a 45-year-old female with past medical history of hypertension and morbid obesity who presents with shortness of breath for the past 2 weeks that has gotten worse in the past few days. Patient says she got stung by bees 2 weeks ago she did have some dizziness today and felt like she was going to pass out. Patient states she is vaccinated for Covid. Denies any fevers, chest pain, abdominal pain, diarrhea, sick contacts, dysuria or hematuria. 04/29/21: Patient was seen and examined in the ICU today. She is currently on BiPAP 20/10. O2 saturation while being examined is at 89%. Discussed with RN. Patient currently on electrolyte replacement protocol. Chart reviewed. 04/30/21: Patient seen and examined in the ICU. She was resting with NAD. She is on BiPAP 20/10 with FiO2 of 100% and currently satting 96%. She changed to non- rebreather this morning to eat breakfast which she handled well. Her O2 sat did go down to 88% during this but is back up to 96% on the BiPAP now. K+ is now within normal range on today's lab values. Discussed with RN. Chart reviewed. 05/01/21: Patient seen and examined in the ICU today. She is resting with NAD. Making good eye contact and is alert. Patient is on non-rebreather at 100% O2 when she is examined and O2 sat is at 90%. When discussed with RN, she states that patient is predominately on BiPAP but switches to non-rebreather as needed for meals. Last night she had on the non-rebreather around 5:30pm-10:00pm and kept her O2 sat in the low 90's. The BiPAP settings are 20/10 with FiO2 of 100% and a rate of 20. Roa to bedside present. Patient has had a fair appetite and eats about 25-40% of her meals. Chart reviewed. 05/02/2021: Patient remains in ICU on BiPAP with FiO2 100%. Afebrile. Last day remdesivir today. We will continue treatment with empiric antibiotics and steroids; will change to Decadron 6 mg daily per standard of care. Chest x-ray from 04/29 showed good diffuse bilateral airspace opacities; will repeat chest x- ray today. Critical care time 30 minutes spent reviewing charts, reviewing labs, reviewing imaging, discussion with RN. 05/03/2021: ferritin 3264 FiO2 100%. Afebrile. Last day remdesivir 05-02 . We will continue treatment with empiric antibiotics and steroids; will change to Decadron 6 mg daily per standard of care. Chest x-ray from 04/29 showed good diffuse bilateral airspace opacities; will repeat chest x-ray today. 36 minutes spent reviewing charts, reviewing labs, reviewing imaging, discussion with RN. 100% FiO2 via non-rebreather mask Slight interval decrease in diffuse lower lobe predominant interstitial infiltrate. cxr 05-02 acute vasomotor nephropathy improved D/W RN 05/04/2021: ferritin 3264 crp 34.9 FiO2 100%. Afebrile. Last day remdesivir 05-02 . We will continue treatment with empiric antibiotics and steroids; will change to Decadron 6 mg daily per standard of care. Chest x-ray from 04/29 showed good diffuse bilateral airspace opacities; will repeat chest x-ray today. 38 minutes spent reviewing charts, reviewing labs, reviewing imaging, discussion with RN. 100% FiO2 via non-rebreather mask Slight interval decrease in diffuse lower lobe predominant interstitial infiltrate. cxr 05-02 acute vasomotor nephropathy improved D/W RN Remdesivir per protocol for 5 days. Replace electrolytes prn 05/05/2021: ferritin 3264 crp 34.9 FiO2 100%. Afebrile. Last day remdesivir 05-02 . We will continue treatment with empiric antibiotics and steroids; will change to Decadron 6 mg daily per standard of care. Chest x-ray from 04/29 showed good diffuse bilateral airspace opacities; will repeat chest x-ray today. 38 minutes spent reviewing charts, reviewing labs, reviewing imaging, discussion with RN. 100% FiO2 via non-rebreather mask Slight interval decrease in diffuse lower lobe predominant interstitial infiltrate. cxr 05-02 acute vasomotor nephropathy improved D/W RN Remdesivir per protocol for 5 days. Replace electrolytes prn 05/06/2021: ferritin 3264 crp 34.9 FERRITIN 262 9-16 6 LITERS [place] Afebrile. Last day remdesivir 05-02 . We will continue treatment with empiric antibiotics and steroids; will change to Decadron 6 mg daily per standard of care. Chest x-ray from 04/29 showed good diffuse bilateral airspace opacities; will repeat chest x-ray today. 28 minutes spent reviewing charts, reviewing labs, reviewing imaging, discussion with RN. 100% FiO2 via non-rebreather mask Slight interval decrease in diffuse lower lobe predominant interstitial infiltrate. cxr 05-02 acute vasomotor nephropathy improved D/W RN Remdesivir per protocol for 5 days. Replace electrolytes prn 05/07/2021: ferritin 3264 crp 34.9 FERRITIN 262 9-16 6 [place] Afebrile. Last day remdesivir 05-02 . We will continue treatment with empiric antibiotics and steroids; will change to Decadron 6 mg daily per standard of care. Chest x-ray from 04/29 showed good diffuse bilateral airspace opacities; will repeat chest x-ray today. 28 minutes spent reviewing charts, reviewing labs, reviewing imaging, discussion with RN. 100% FiO2 via non-rebreather mask on admit Slight interval decrease in diffuse lower lobe predominant interstitial infiltrate. cxr 05-02 acute vasomotor nephropathy improved D/W RN Remdesivir per protocol for 5 days. Replace electrolytes prn \ 05/08/2021: ferritin 3264 crp 34.9 FERRITIN 262 9-16 6 [place] Afebrile. Last day remdesivir 05-02 . We will continue treatment with empiric antibiotics and steroids; will change to Decadron 6 mg daily per standard of care. Chest x-ray from 04/29 showed good diffuse bilateral airspace opacities; will repeat chest x-ray today. 26 minutes spent reviewing charts, reviewing labs, reviewing imaging, discussion with RN. 100% FiO2 via non-rebreather mask on admit Slight interval decrease in diffuse lower lobe predominant interstitial inf iltrate. cxr 05-02 acute vasomotor nephropathy improved D/W RN Remdesivir per protocol for 5 days. Replace electrolytes prn 6 min walk before d/c Vitals Vitals Vital Signs Date Time Temp Pulse Resp B/P (MAP) Pulse Ox O2 Delivery O2 Flow Rate FiO2 05/08/21 09:20 80 05/08/21 07:50 97.1 16 142/91 (108) 99 Nasal Cannula 8.0 97.1 Physical Exam General: Alert, Oriented X3, Cooperative, No acute distress Heart: Regular rate, Normal S1, Normal S2 Lungs: Crackles Abdomen: Normal bowel sounds, Soft, No tenderness Extremities: No cyanosis, No edema Skin: No rashes, No breakdown Labs LABS Laboratory Tests Test 05/08/21 06:00 White Blood Count 9.7 x10^3/uL (4.0-11.0) Red Blood Count 6.85 x10^6/uL (3.50-5.40) Hemoglobin 13.2 g/dL (12.0-15.5) Hematocrit 42.0 % (36.0-47.0) Mean Corpuscular Volume 61 fL (79-100) Mean Corpuscular Hemoglobin 19 pg (25-35) Mean Corpuscular Hemoglobin Concent 31 g/dL (31-37) Red Cell Distribution Width 17.6 % (11.5-14.5) Platelet Count 267 x10^3/uL (140-400) Neutrophils (%) (Auto) 58 % (31-73) Lymphocytes (%) (Auto) 31 % (24-48) Monocytes (%) (Auto) 10 % (0-9) Eosinophils (%) (Auto) 1 % (0-3) Basophils (%) (Auto) 1 % (0-3) Neutrophils # (Auto) 5.6 x10^3/uL (1.8-7.7) Lymphocytes # (Auto) 3.0 x10^3/uL (1.0-4.8) Monocytes # (Auto) 1.0 x10^3/uL (0.0-1.1) Eosinophils # (Auto) 0.0 x10^3/uL (0.0-0.7) Basophils # (Auto) 0.0 x10^3/uL (0.0-0.2) Sodium Level 140 mmol/L (136-145) Potassium Level 3.7 mmol/L (3.5-5.1) Chloride Level 106 mmol/L (98-107) Carbon Dioxide Level 29 mmol/L (21-32) Anion Gap 5 (6-14) Blood Urea Nitrogen 13 mg/dL (7-20) Creatinine 0.6 mg/dL (0.6-1.0) Estimated GFR (Cockcroft-Gault) 107.2 Glucose Level 80 mg/dL (70-99) Calcium Level 8.7 mg/dL (8.5-10.1) Assessment and Plan Assessmemt and Plan Problems Medical Problems: (1) Acute renal failure Status: Acute (2) Acute respiratory failure Status: Acute (3) Bee sting Status: Acute (4) Hypokalemia Status: Acute Comment Review of Relevant I have reviewed the following items anny (where applicable) has been applied. Labs Laboratory Tests Test 05/07/21 06:25 05/08/21 06:00 White Blood Count 8.8 x10^3/uL (4.0-11.0) 9.7 x10^3/uL (4.0-11.0) Red Blood Count 6.80 x10^6/uL (3.50-5.40) 6.85 x10^6/uL (3.50-5.40) Hemoglobin 13.3 g/dL (12.0-15.5) 13.2 g/dL (12.0-15.5) Hematocrit 41.4 % (36.0-47.0) 42.0 % (36.0-47.0) Mean Corpuscular Volume 61 fL (79-100) 61 fL (79-100) Mean Corpuscular Hemoglobin 20 pg (25-35) 19 pg (25-35) Mean Corpuscular Hemoglobin Concent 32 g/dL (31-37) 31 g/dL (31-37) Red Cell Distribution Width 17.3 % (11.5-14.5) 17.6 % (11.5-14.5) Platelet Count 254 x10^3/uL (140-400) 267 x10^3/uL (140-400) Neutrophils (%) (Auto) 48 % (31-73) 58 % (31-73) Lymphocytes (%) (Auto) 38 % (24-48) 31 % (24-48) Monocytes (%) (Auto) 12 % (0-9) 10 % (0-9) Eosinophils (%) (Auto) 1 % (0-3) 1 % (0-3) Basophils (%) (Auto) 1 % (0-3) 1 % (0-3) Neutrophils # (Auto) 4.2 x10^3/uL (1.8-7.7) 5.6 x10^3/uL (1.8-7.7) Lymphocytes # (Auto) 3.4 x10^3/uL (1.0-4.8) 3.0 x10^3/uL (1.0-4.8) Monocytes # (Auto) 1.1 x10^3/uL (0.0-1.1) 1.0 x10^3/uL (0.0-1.1) Eosinophils # (Auto) 0.1 x10^3/uL (0.0-0.7) 0.0 x10^3/uL (0.0-0.7) Basophils # (Auto) 0.1 x10^3/uL (0.0-0.2) 0.0 x10^3/uL (0.0-0.2) Sodium Level 140 mmol/L (136-145) 140 mmol/L (136-145) Potassium Level 3.4 mmol/L (3.5-5.1) 3.7 mmol/L (3.5-5.1) Chloride Level 105 mmol/L (98-107) 106 mmol/L (98-107) Carbon Dioxide Level 28 mmol/L (21-32) 29 mmol/L (21-32) Anion Gap 7 (6-14) 5 (6-14) Blood Urea Nitrogen 16 mg/dL (7-20) 13 mg/dL (7-20) Creatinine 0.6 mg/dL (0.6-1.0) 0.6 mg/dL (0.6-1.0) Estimated GFR (Cockcroft-Gault) 107.2 107.2 Glucose Level 80 mg/dL (70-99) 80 mg/dL (70-99) Calcium Level 8.9 mg/dL (8.5-10.1) 8.7 mg/dL (8.5-10.1) C-Reactive Protein, Quantitative 5.1 mg/L (0-3.3) Laboratory Tests Test 05/08/21 06:00 White Blood Count 9.7 x10^3/uL (4.0-11.0) Red Blood Count 6.85 x10^6/uL (3.50-5.40) Hemoglobin 13.2 g/dL (12.0-15.5) Hematocrit 42.0 % (36.0-47.0) Mean Corpuscular Volume 61 fL (79-100) Mean Corpuscular Hemoglobin 19 pg (25-35) Mean Corpuscular Hemoglobin Concent 31 g/dL (31-37) Red Cell Distribution Width 17.6 % (11.5-14.5) Platelet Count 267 x10^3/uL (140-400) Neutrophils (%) (Auto) 58 % (31-73) Lymphocytes (%) (Auto) 31 % (24-48) Monocytes (%) (Auto) 10 % (0-9) Eosinophils (%) (Auto) 1 % (0-3) Basophils (%) (Auto) 1 % (0-3) Neutrophils # (Auto) 5.6 x10^3/uL (1.8-7.7) Lymphocytes # (Auto) 3.0 x10^3/uL (1.0-4.8) Monocytes # (Auto) 1.0 x10^3/uL (0.0-1.1) Eosinophils # (Auto) 0.0 x10^3/uL (0.0-0.7) Basophils # (Auto) 0.0 x10^3/uL (0.0-0.2) Sodium Level 140 mmol/L (136-145) Potassium Level 3.7 mmol/L (3.5-5.1) Chloride Level 106 mmol/L (98-107) Carbon Dioxide Level 29 mmol/L (21-32) Anion Gap 5 (6-14) Blood Urea Nitrogen 13 mg/dL (7-20) Creatinine 0.6 mg/dL (0.6-1.0) Estimated GFR (Cockcroft-Gault) 107.2 Glucose Level 80 mg/dL (70-99) Calcium Level 8.7 mg/dL (8.5-10.1) Microbiology 04/27/21 Blood Culture - Final, Complete NO GROWTH AFTER 5 DAYS Medications Current Medications Dexamethasone Sodium Phosphate (Decadron) 10 mg 1X ONCE IV Last administered on 04/27/21at 20:04; Start 04/27/21 at 19:00; Stop 04/27/21 at 19:10; Status DC Piperacillin Sod/ Tazobactam Sod 3.375 gm/Sodium Chloride 50 ml @ 100 mls/hr 1X ONCE IV ; Start 04/27/21 at 19:00; Stop 04/27/21 at 19:29; Status UNV Vancomycin HCl (Vanco Per Pharmacy) 1 each PRN DAILY PRN MC SEE COMMENTS; Start 04/27/21 at 19:00; Status UNV Ceftriaxone Sodium (Rocephin) 1 gm 1X ONCE IVP Last administered on 04/27/21at 20:04; Start 04/27/21 at 19:15; Stop 04/27/21 at 19:16; Status DC Doxycycline Hyclate 100 mg/ Dextrose 100 ml @ 50 mls/hr 1X ONCE IV Last administered on 04/27/21at 20:00; Start 04/27/21 at 19:15; Stop 04/27/21 at 21:14; Status DC Sterile Water (WATER for RESP) 1,000 ml CONT PRN INH VIA VAPOTHERM DEVICE; Start 04/27/21 at 20:15 Piperacillin Sod/ Tazobactam Sod 4.5 gm/Sodium Chloride 100 ml @ 200 mls/hr 1X ONCE IV Last administered on 04/27/21at 20:57; Start 04/27/21 at 20:30; Stop 04/27/21 at 20:59; Status DC Potassium Bicarbonate (Potassium Effervescent Tablet) 40 meq 1X ONCE PO Last administered on 04/27/21at 20:56; Start 04/27/21 at 21:00; Stop 04/27/21 at 21:01; Status DC Potassium Chloride/Water 100 ml @ 50 mls/hr 1X ONCE IV Last administered on 04/27/21at 20:56; Start 04/27/21 at 21:00; Stop 04/27/21 at 22:59; Status DC Ondansetron HCl (Zofran) 4 mg PRN Q8HRS PRN IVP NAUSEA/VOMITING; Start 04/27/21 at 21:00; Stop 04/28/21 at 17:06; Status DC Morphine Sulfate (Morphine Sulfate) 2 mg PRN Q2HR PRN IVP PAIN; Start 04/27/21 at 21:00; Stop 04/28/21 at 20:59; Status DC Acetaminophen (Tylenol) 650 mg PRN Q4HRS PRN PO FEVER > 100.3'F; Start 04/27/21 at 21:00; Stop 04/28/21 at 17:06; Status DC Ascorbic Acid (Vitamin C) 3,000 mg TID PO Last administered on 05/08/21at 09:21; Start 04/28/21 at 14:00 Methylprednisolone Sodium Succinate (SOLU-Medrol 40MG VIAL) 40 mg Q8HRS IV Last administered on 05/02/21at 04:58; Start 04/28/21 at 14:00; Stop 05/02/21 at 08:15; Status DC Thiamine Mononitrate (Vitamin B-1) 300 mg DAILY PO Last administered on 05/08/21at 09:20; Start 04/28/21 at 13:00 Zinc Sulfate (Orazinc) 220 mg DAILY PO Last administered on 05/08/21at 09:21; Start 04/28/21 at 13:00 Sennosides (Senna) 17.2 mg PRN BID PRN PO CONSTIPATION Last administered on 05/01/21at 17:44; Start 04/28/21 at 12:00 Docusate Sodium (Colace) 100 mg PRN DAILY PRN PO HARD STOOLS Last administered on 05/05/21at 21:33; Start 04/28/21 at 12:00 Ondansetron HCl (Zofran) 4 mg PRN Q6HRS PRN IVP NAUSEA/VOMITING, 1st CHOICE; Start 04/28/21 at 12:00 Dextrose (Dextrose 50%-Water Syringe) 12.5 gm PRN Q15MIN PRN IV SEE COMMENTS; Start 04/28/21 at 12:00 Sodium Chloride 1,000 ml @ 100 mls/hr Q10H IV Last administered on 04/29/21at 07:50; Start 04/28/21 at 12:00; Stop 04/29/21 at 11:59; Status DC Acetaminophen (Tylenol) 650 mg PRN Q4HRS PRN PO TEMP OVER 100.4F OR MILD PAIN; Start 04/28/21 at 12:00 Enoxaparin Sodium (Lovenox 40mg Syringe) 40 mg Q24H SQ Last administered on 04/29/21at 07:49; Start 04/28/21 at 12:15; Stop 04/29/21 at 15:49; Status DC Pantoprazole Sodium (Protonix) 40 mg DAILYAC PO Last administered on 04/28/21at 16:56; Start 04/28/21 at 16:30; Stop 04/29/21 at 08:26; Status DC Prochlorperazine Edisylate (Compazine) 10 mg PRN Q6HRS PRN IV NAUSEA/VOMITING, 2nd CHOICE; Start 04/28/21 at 12:00 Remdesivir 200 mg/ Sodium Chloride 210 ml @ 210 mls/hr 1X ONCE IV Last administered on 04/28/21at 13:29; Start 04/28/21 at 13:00; Stop 04/28/21 at 13:59; Status DC Remdesivir 100 mg/ Sodium Chloride 230 ml @ 460 mls/hr Q24H IV Last administered on 05/02/21at 13:29; Start 04/29/21 at 13:00; Stop 05/02/21 at 13:29; Status DC Lorazepam (Ativan) 0.25 mg PRN Q8HRS PRN PO ANXIETY / AGITATION; Start 04/28/21 at 12:30 Potassium Chloride/Water 100 ml @ 100 mls/hr Q1H IV ; Start 04/29/21 at 05:45; Stop 04/29/21 at 07:44; Status UNV Potassium Chloride/Water 100 ml @ 100 mls/hr Q1H IV Last administered on 04/29/21at 09:15; Start 04/29/21 at 06:00; Stop 04/29/21 at 09:59; Status DC Pantoprazole Sodium (PROTONIX VIAL for IV PUSH) 40 mg DAILYAC IVP Last administered on 05/06/21at 07:19; Start 04/29/21 at 09:00; Stop 05/06/21 at 09:41; Status DC Potassium Chloride/Water 20 ml @ 20 mls/hr Q1H IV Last administered on 04/29/21at 16:08; Start 04/29/21 at 13:30; Stop 04/29/21 at 15:29; Status DC Enoxaparin Sodium (Lovenox 40mg Syringe) 40 mg Q12HR SQ Last administered on 05/08/21at 09:20; Start 04/29/21 at 21:00 Doxycycline Hyclate 100 mg/ Dextrose 100 ml @ 50 mls/hr Q12HR IV Last administered on 05/08/21at 09:23; Start 04/29/21 at 17:00 Lactobacillus Rhamnosus (Culturelle) 1 cap BID PO Last administered on 05/08/21at 09:20; Start 04/29/21 at 21:00 Lisinopril (Prinivil) 10 mg DAILY PO Last administered on 05/08/21at 09:20; Start 05/01/21 at 21:00 Hydralazine HCl (Apresoline Inj) 10 mg PRN Q4HRS PRN IVP ELEVATED BP, SEE COMMENTS Last administered on 05/02/21at 23:08; Start 05/01/21 at 19:45 Dexamethasone Sodium Phosphate (Decadron) 6 mg DAILY IVP Last administered on 05/08/21at 09:20; Start 05/02/21 at 09:00 Pantoprazole Sodium (Protonix) 40 mg DAILYAC PO Last administered on 05/08/21at 05:46; Start 05/07/21 at 07:30 Potassium Chloride (Klor-Con) 40 meq 1X ONCE PO Last administered on 05/06/21at 11:51; Start 05/06/21 at 11:30; Stop 05/06/21 at 11:31; Status DC Active Scripts Active Reported Lisinopril Unknown Strength Tablet Unknown Dose PO DAILY Vitals/I & O Vital Sign - Last 24 Hours 05/07/21 05/07/21 05/07/21 05/07/21 10:10 11:00 14:41 19:33 Temp 97.2 96.9 96.8 97.2 96.9 96.8 Pulse 75 55 65 61 Resp 16 18 18 B/P (MAP) 133/65 (87) 124/77 (93) 156/101 (119) Pulse Ox 96 98 98 O2 Delivery Nasal Cannula Nasal Cannula Nasal Cannula O2 Flow Rate 8.0 8.0 8.0 05/07/21 05/07/21 05/08/21 05/08/21 20:11 22:35 02:58 07:50 Temp 96.8 96.9 97.1 96.8 96.9 97.1 Pulse 50 53 Resp 16 16 16 B/P (MAP) 150/77 (101) 154/72 (99) 142/91 (108) Pulse Ox 93 98 99 O2 Delivery Nasal Cannula Nasal Cannula Nasal Cannula Nasal Cannula O2 Flow Rate 8.0 8.0 8.0 8.0 05/08/21 09:20 Pulse 80 Intake and Output 05/07/21 05/07/21 05/08/21 15:00 23:00 07:00 Intake Total 700 ml 585 ml 0 ml Output Total 200 ml Balance 700 ml 385 ml 0 ml Justicifation of Admission Dx: Justifications for Admission: Justification of Admission Dx: Yes Sepsis: Infection KATHI LINDQUIST MD May 08, 2021 09:37
[2021-05-08 11:40] VITALS: BP 140/97
[2021-05-08 14:27] VITALS: BP 139/80
--- NOTE | 2021-05-08 16:10 | PDOC3 ---
Discharge Summary Date of Admission: Apr 27, 2021 Date of Discharge: May 08, 2021 Follow-Up: 3-5 days Admitting Diagnosis comment: History of Present Illness: HPI: Patient is a 45-year-old female with past medical history of hypertension and morbid obesity who presents with shortness of breath for the past 2 weeks that has gotten worse in the past few days. Patient says she got stung by bees 2 weeks ago she did have some dizziness today and felt like she was going to pass out. Patient states she is vaccinated for Covid. Denies any fevers, chest pain, abdominal pain, diarrhea, sick contacts, dysuria or hematuria. Past Medical/Surgical History: PMH/PSH: Past Medical History: Hypertension Past Surgical History: No Surgical History Allergies: Allergies: Coded Allergies: No Known Drug Allergies (Unverified , 04/27/21 DISCHARGE DX D/C MEDS SEE MAR D/C CONDITION FAIR SEE YOUR PCP IN 3 DAYS Chief Complaint CC: Acute hypoxic respiratory failure Covid-19 viral pneumonia Sepsis Hypokalemia HTN Morbid obesity MAYRA Protein malnutrition History of Present Illness History of Present Illness HPI: Patient is a 45-year-old female with past medical history of hypertension and morbid obesity who presents with shortness of breath for the past 2 weeks that has gotten worse in the past few days. Patient says she got stung by bees 2 weeks ago she did have some dizziness today and felt like she was going to pass out. Patient states she is vaccinated for Covid. Denies any fevers, chest pain, abdominal pain, diarrhea, sick contacts, dysuria or hematuria. 04/29/21: Patient was seen and examined in the ICU today. She is currently on BiPAP 20/10. O2 saturation while being examined is at 89%. Discussed with RN. Patient currently on electrolyte replacement protocol. Chart reviewed. 04/30/21: Patient seen and examined in the ICU. She was resting with NAD. She is on BiPAP 20/10 with FiO2 of 100% and currently satting 96%. She changed to non- rebreather this morning to eat breakfast which she handled well. Her O2 sat did go down to 88% during this but is back up to 96% on the BiPAP now. K+ is now within normal range on today's lab values. Discussed with RN. Chart reviewed. 05/01/21: Patient seen and examined in the ICU today. She is resting with NAD. Making good eye contact and is alert. Patient is on non-rebreather at 100% O2 when she is examined and O2 sat is at 90%. When discussed with RN, she states that patient is predominately on BiPAP but switches to non-rebreather as needed for meals. Last night she had on the non-rebreather around 5:30pm-10:00pm and kept her O2 sat in the low 90's. The BiPAP settings are 20/10 with FiO2 of 100% and a rate of 20. Roa to bedside present. Patient has had a fair appetite and eats about 25-40% of her meals. Chart reviewed. 05/02/2021: Patient remains in ICU on BiPAP with FiO2 100%. Afebrile. Last day remdesivir today. We will continue treatment with empiric antibiotics and steroids; will change to Decadron 6 mg daily per standard of care. Chest x-ray from 04/29 showed good diffuse bilateral airspace opacities; will repeat chest x- ray today. Critical care time 30 minutes spent reviewing charts, reviewing labs, reviewing imaging, discussion with RN. 05/03/2021: ferritin 3264 FiO2 100%. Afebrile. Last day remdesivir 05-02 . We will continue treatment with empiric antibiotics and steroids; will change to Decadron 6 mg daily per standard of care. Chest x-ray from 04/29 showed good diffuse bilateral airspace opacities; will repeat chest x-ray today. 36 minutes spent reviewing charts, reviewing labs, reviewing imaging, discussion with RN. 100% FiO2 via non-rebreather mask Slight interval decrease in diffuse lower lobe predominant interstitial infiltrate. cxr 05-02 acute vasomotor nephropathy improved D/W RN 05/04/2021: ferritin 3264 crp 34.9 FiO2 100%. Afebrile. Last day remdesivir 05-02 . We will continue treatment with empiric antibiotics and steroids; will change to Decadron 6 mg daily per standard of care. Chest x-ray from 04/29 showed good diffuse bilateral airspace opacities; will repeat chest x-ray today. 38 minutes spent reviewing charts, reviewing labs, reviewing imaging, discussion with RN. 100% FiO2 via non-rebreather mask Slight interval decrease in diffuse lower lobe predominant interstitial infiltrate. cxr 05-02 acute vasomotor nephropathy improved D/W RN Remdesivir per protocol for 5 days. Replace electrolytes prn 05/05/2021: ferritin 3264 crp 34.9 FiO2 100%. Afebrile. Last day remdesivir 05-02 . We will continue treatment with empiric antibiotics and steroids; will change to Decadron 6 mg daily per standard of care. Chest x-ray from 04/29 showed good diffuse bilateral airspace opacities; will repeat chest x-ray today. 38 minutes spent reviewing charts, reviewing labs, reviewing imaging, discussion with RN. 100% FiO2 via non-rebreather mask Slight interval decrease in diffuse lower lobe predominant interstitial infiltrate. cxr 05-02 acute vasomotor nephropathy improved D/W RN Remdesivir per protocol for 5 days. Replace electrolytes prn 05/06/2021: ferritin 3264 crp 34.9 FERRITIN 262 9-16 6 LITERS NC Afebrile. Last day remdesivir 05-02 . We will continue treatment with empiric antibiotics and steroids; will change to Decadron 6 mg daily per standard of care. Chest x-ray from 04/29 showed good diffuse bilateral airspace opacities; will repeat chest x-ray today. 28 minutes spent reviewing charts, reviewing labs, reviewing imaging, discussion with RN. 100% FiO2 via non-rebreather mask Slight interval decrease in diffuse lower lobe predominant interstitial infiltrate. cxr 05-02 acute vasomotor nephropathy improved D/W RN Remdesivir per protocol for 5 days. Replace electrolytes prn 05/07/2021: ferritin 3264 crp 34.9 FERRITIN 262 9-16 6 LITERS NC Afebrile. Last day remdesivir 9- . We will continue treatment with empiric antibiotics and steroids; will change to Decadron 6 mg daily per standard of care. Chest x-ray from 04/29 showed good diffuse bilateral airspace opacities; will repeat chest x-ray today. 28 minutes spent reviewing charts, reviewing labs, reviewing imaging, discussion with RN. 100% FiO2 via non-rebreather mask on admit Slight interval decrease in diffuse lower lobe predominant interstitial infiltrate. cxr 05-02 acute vasomotor nephropathy improved D/W RN Remdesivir per protocol for 5 days. Replace electrolytes prn \ 05/08/2021: ferritin 3264 crp 34.9 FERRITIN 262 9- 6 LITERS NC Afebrile. Last day remdesivir 05-02 . We will continue treatment with empiric antibiotics and steroids; will change to Decadron 6 mg daily per standard of care. Chest x-ray from 04/29 showed good diffuse bilateral airspace opacities; will repeat chest x-ray today. 26 minutes spent reviewing charts, reviewing labs, reviewing imaging, discussion with RN. 100% FiO2 via non-rebreather mask on admit Slight interval decrease in diffuse lower lobe predominant interstitial infiltrate. cxr 05-02 acute vasomotor nephropathy improved D/W RN Remdesivir per protocol for 5 days. Replace electrolytes prn 6 min walk before d/c NEEDS 2 LITERS NC WITH EXERCISE Vitals Vitals Vital Signs Date Time Temp Pulse Resp B/P (MAP) Pulse Ox O2 Delivery O2 Flow Rate FiO2 05/08/21 09:20 80 05/08/21 07:50 97.1 16 142/91 (108) 99 Nasal Cannula 8.0 97.1 Physical Exam General: Alert, Oriented X3, Cooperative, No acute distress Heart: Regular rate, Normal S1, Normal S2 Lungs: Crackles Abdomen: Normal bowel sounds, Soft, No tenderness Extremities: No cyanosis, No edema Skin: No rashes, No breakdown FINAL DIAGNOSIS Problems Medical Problems: (1) Acute renal failure Status: Acute (2) Acute respiratory failure Status: Acute (3) Bee sting Status: Acute (4) Hypokalemia Status: Acute Brief Hospital Course Ms. Burgess is a 45 old [sex] who presented with [COVID 19 ] CONDITION AT DISCHARGE: Improved Discharge Medications Current Medications Dexamethasone Sodium Phosphate (Decadron) 10 mg 1X ONCE IV Last administered on 04/27/21at 20:04; Start 04/27/21 at 19:00; Stop 04/27/21 at 19:10; Status DC Piperacillin Sod/ Tazobactam Sod 3.375 gm/Sodium Chloride 50 ml @ 100 mls/hr 1X ONCE IV ; Start 04/27/21 at 19:00; Stop 04/27/21 at 19:29; Status UNV Vancomycin HCl (Vanco Per Pharmacy) 1 each PRN DAILY PRN MC SEE COMMENTS; Start 04/27/21 at 19:00; Status UNV Ceftriaxone Sodium (Rocephin) 1 gm 1X ONCE IVP Last administered on 04/27/21at 20:04; Start 04/27/21 at 19:15; Stop 04/27/21 at 19:16; Status DC Doxycycline Hyclate 100 mg/ Dextrose 100 ml @ 50 mls/hr 1X ONCE IV Last administered on 04/27/21at 20:00; Start 04/27/21 at 19:15; Stop 04/27/21 at 21:14; Status DC Sterile Water (WATER for RESP) 1,000 ml CONT PRN INH VIA VAPOTHERM DEVICE; Start 04/27/21 at 20:15 Piperacillin Sod/ Tazobactam Sod 4.5 gm/Sodium Chloride 100 ml @ 200 mls/hr 1X ONCE IV Last administered on 04/27/21at 20:57; Start 04/27/21 at 20:30; Stop 04/27/21 at 20:59; Status DC Potassium Bicarbonate (Potassium Effervescent Tablet) 40 meq 1X ONCE PO Last administered on 04/27/21at 20:56; Start 04/27/21 at 21:00; Stop 04/27/21 at 21:01; Status DC Potassium Chloride/Water 100 ml @ 50 mls/hr 1X ONCE IV Last administered on 04/27/21at 20:56; Start 04/27/21 at 21:00; Stop 04/27/21 at 22:59; Status DC Ondansetron HCl (Zofran) 4 mg PRN Q8HRS PRN IVP NAUSEA/VOMITING; Start 04/27/21 at 21:00; Stop 04/28/21 at 17:06; Status DC Morphine Sulfate (Morphine Sulfate) 2 mg PRN Q2HR PRN IVP PAIN; Start 04/27/21 at 21:00; Stop 04/28/21 at 20:59; Status DC Acetaminophen (Tylenol) 650 mg PRN Q4HRS PRN PO FEVER > 100.3'F; Start 04/27/21 at 21:00; Stop 04/28/21 at 17:06; Status DC Ascorbic Acid (Vitamin C) 3,000 mg TID PO Last administered on 05/08/21at 09:21; Start 04/28/21 at 14:00 Methylprednisolone Sodium Succinate (SOLU-Medrol 40MG VIAL) 40 mg Q8HRS IV Last administered on 05/02/21at 04:58; Start 04/28/21 at 14:00; Stop 05/02/21 at 08:15; Status DC Thiamine Mononitrate (Vitamin B-1) 300 mg DAILY PO Last administered on 05/08/21 at 09:20; Start 04/28/21 at 13:00 Zinc Sulfate (Orazinc) 220 mg DAILY PO Last administered on 05/08/21at 09:21; Start 04/28/21 at 13:00 Sennosides (Senna) 17.2 mg PRN BID PRN PO CONSTIPATION Last administered on 05/01/21at 17:44; Start 04/28/21 at 12:00 Docusate Sodium (Colace) 100 mg PRN DAILY PRN PO HARD STOOLS Last administered on 05/05/21at 21:33; Start 04/28/21 at 12:00 Ondansetron HCl (Zofran) 4 mg PRN Q6HRS PRN IVP NAUSEA/VOMITING, 1st CHOICE; Start 04/28/21 at 12:00 Dextrose (Dextrose 50%-Water Syringe) 12.5 gm PRN Q15MIN PRN IV SEE COMMENTS; Start 04/28/21 at 12:00 Sodium Chloride 1,000 ml @ 100 mls/hr Q10H IV Last administered on 04/29/21at 07:50; Start 04/28/21 at 12:00; Stop 04/29/21 at 11:59; Status DC Acetaminophen (Tylenol) 650 mg PRN Q4HRS PRN PO TEMP OVER 100.4F OR MILD PAIN; Start 04/28/21 at 12:00 Enoxaparin Sodium (Lovenox 40mg Syringe) 40 mg Q24H SQ Last administered on 04/29/21at 07:49; Start 04/28/21 at 12:15; Stop 04/29/21 at 15:49; Status DC Pantoprazole Sodium (Protonix) 40 mg DAILYAC PO Last administered on 04/28/21at 16:56; Start 04/28/21 at 16:30; Stop 04/29/21 at 08:26; Status DC Prochlorperazine Edisylate (Compazine) 10 mg PRN Q6HRS PRN IV NAUSEA/VOMITING, 2nd CHOICE; Start 04/28/21 at 12:00 Remdesivir 200 mg/ Sodium Chloride 210 ml @ 210 mls/hr 1X ONCE IV Last administered on 04/28/21at 13:29; Start 04/28/21 at 13:00; Stop 04/28/21 at 13:59; Status DC Remdesivir 100 mg/ Sodium Chloride 230 ml @ 460 mls/hr Q24H IV Last administered on 05/02/21at 13:29; Start 04/29/21 at 13:00; Stop 05/02/21 at 13:29; Status DC Lorazepam (Ativan) 0.25 mg PRN Q8HRS PRN PO ANXIETY / AGITATION; Start 04/28/21 at 12:30 Potassium Chloride/Water 100 ml @ 100 mls/hr Q1H IV ; Start 04/29/21 at 05:45; Stop 04/29/21 at 07:44; Status UNV Potassium Chloride/Water 100 ml @ 100 mls/hr Q1H IV Last administered on 04/29/21at 09:15; Start 04/29/21 at 06:00; Stop 04/29/21 at 09:59; Status DC Pantoprazole Sodium (PROTONIX VIAL for IV PUSH) 40 mg DAILYAC IVP Last administered on 05/06/21at 07:19; Start 04/29/21 at 09:00; Stop 05/06/21 at 09:41; Status DC Potassium Chloride/Water 20 ml @ 20 mls/hr Q1H IV Last administered on 04/29/21at 16:08; Start 04/29/21 at 13:30; Stop 04/29/21 at 15:29; Status DC Enoxaparin Sodium (Lovenox 40mg Syringe) 40 mg Q12HR SQ Last administered on 05/08/21at 09:20; Start 04/29/21 at 21:00 Doxycycline Hyclate 100 mg/ Dextrose 100 ml @ 50 mls/hr Q12HR IV Last admin istered on 05/08/21at 09:23; Start 04/29/21 at 17:00 Lactobacillus Rhamnosus (Culturelle) 1 cap BID PO Last administered on 05/08at 09:20; Start 04/29/21 at 21:00 Lisinopril (Prinivil) 10 mg DAILY PO Last administered on 05/08/21at 09:20; Start 05/01/21 at 21:00 Hydralazine HCl (Apresoline Inj) 10 mg PRN Q4HRS PRN IVP ELEVATED BP, SEE COMMENTS Last administered on 05/02/21at 23:08; Start 05/01/21 at 19:45 Dexamethasone Sodium Phosphate (Decadron) 6 mg DAILY IVP Last administered on 05/08/21at 09:20; Start 05/02/21 at 09:00 Pantoprazole Sodium (Protonix) 40 mg DAILYAC PO Last administered on 05/08/21at 05:46; Start 05/07/21 at 07:30 Potassium Chloride (Klor-Con) 40 meq 1X ONCE PO Last administered on 05/06/21at 11:51; Start 05/06/21 at 11:30; Stop 05/06/21 at 11:31; Status DC Active Scripts Active Reported Lisinopril Unknown Strength Tablet Unknown Dose PO DAILY Vital Signs Vital Signs Date Time Temp Pulse Resp B/P (MAP) Pulse Ox O2 Delivery O2 Flow Rate FiO2 05/08/21 14:27 98.4 67 18 139/80 (99) 96 Nasal Cannula 6.0 98.4 Labs Laboratory Tests Test 05/07/21 06:25 05/08/21 06:00 White Blood Count 8.8 x10^3/uL (4.0-11.0) 9.7 x10^3/uL (4.0-11.0) Red Blood Count 6.80 x10^6/uL (3.50-5.40) 6.85 x10^6/uL (3.50-5.40) Hemoglobin 13.3 g/dL (12.0-15.5) 13.2 g/dL (12.0-15.5) Hematocrit 41.4 % (36.0-47.0) 42.0 % (36.0-47.0) Mean Corpuscular Volume 61 fL (79-100) 61 fL (79-100) Mean Corpuscular Hemoglobin 20 pg (25-35) 19 pg (25-35) Mean Corpuscular Hemoglobin Concent 32 g/dL (31-37) 31 g/dL (31-37) Red Cell Distribution Width 17.3 % (11.5-14.5) 17.6 % (11.5-14.5) Platelet Count 254 x10^3/uL (140-400) 267 x10^3/uL (140-400) Neutrophils (%) (Auto) 48 % (31-73) 58 % (31-73) Lymphocytes (%) (Auto) 38 % (24-48) 31 % (24-48) Monocytes (%) (Auto) 12 % (0-9) 10 % (0-9) Eosinophils (%) (Auto) 1 % (0-3) 1 % (0-3) Basophils (%) (Auto) 1 % (0-3) 1 % (0-3) Neutrophils # (Auto) 4.2 x10^3/uL (1.8-7.7) 5.6 x10^3/uL (1.8-7.7) Lymphocytes # (Auto) 3.4 x10^3/uL (1.0-4.8) 3.0 x10^3/uL (1.0-4.8) Monocytes # (Auto) 1.1 x10^3/uL (0.0-1.1) 1.0 x10^3/uL (0.0-1.1) Eosinophils # (Auto) 0.1 x10^3/uL (0.0-0.7) 0.0 x10^3/uL (0.0-0.7) Basophils # (Auto) 0.1 x10^3/uL (0.0-0.2) 0.0 x10^3/uL (0.0-0.2) Sodium Level 140 mmol/L (136-145) 140 mmol/L (136-145) Potassium Level 3.4 mmol/L (3.5-5.1) 3.7 mmol/L (3.5-5.1) Chloride Level 105 mmol/L (98-107) 106 mmol/L (98-107) Carbon Dioxide Level 28 mmol/L (21-32) 29 mmol/L (21-32) Anion Gap 7 (6-14) 5 (6-14) Blood Urea Nitrogen 16 mg/dL (7-20) 13 mg/dL (7-20) Creatinine 0.6 mg/dL (0.6-1.0) 0.6 mg/dL (0.6-1.0) Estimated GFR (Cockcroft-Gault) 107.2 107.2 Glucose Level 80 mg/dL (70-99) 80 mg/dL (70-99) Calcium Level 8.9 mg/dL (8.5-10.1) 8.7 mg/dL (8.5-10.1) C-Reactive Protein, Quantitative 5.1 mg/L (0-3.3) Laboratory Tests Test 05/08/21 06:00 White Blood Count 9.7 x10^3/uL (4.0-11.0) Red Blood Count 6.85 x10^6/uL (3.50-5.40) Hemoglobin 13.2 g/dL (12.0-15.5) Hematocrit 42.0 % (36.0-47.0) Mean Corpuscular Volume 61 fL (79-100) Mean Corpuscular Hemoglobin 19 pg (25-35) Mean Corpuscular Hemoglobin Concent 31 g/dL (31-37) Red Cell Distribution Width 17.6 % (11.5-14.5) Platelet Count 267 x10^3/uL (140-400) Neutrophils (%) (Auto) 58 % (31-73) Lymphocytes (%) (Auto) 31 % (24-48) Monocytes (%) (Auto) 10 % (0-9) Eosinophils (%) (Auto) 1 % (0-3) Basophils (%) (Auto) 1 % (0-3) Neutrophils # (Auto) 5.6 x10^3/uL (1.8-7.7) Lymphocytes # (Auto) 3.0 x10^3/uL (1.0-4.8) Monocytes # (Auto) 1.0 x10^3/uL (0.0-1.1) Eosinophils # (Auto) 0.0 x10^3/uL (0.0-0.7) Basophils # (Auto) 0.0 x10^3/uL (0.0-0.2) Sodium Level 140 mmol/L (136-145) Potassium Level 3.7 mmol/L (3.5-5.1) Chloride Level 106 mmol/L (98-107) Carbon Dioxide Level 29 mmol/L (21-32) Anion Gap 5 (6-14) Blood Urea Nitrogen 13 mg/dL (7-20) Creatinine 0.6 mg/dL (0.6-1.0) Estimated GFR (Cockcroft-Gault) 107.2 Glucose Level 80 mg/dL (70-99) Calcium Level 8.7 mg/dL (8.5-10.1) Allergies Allergies Coded Allergies Type Severity Reaction Last Updated Verified No Known Drug Allergies 04/27/21 No Disposition/Orders: D/C to Home Justicifation of Admission Dx: Justifications for Admission: Justification of Admission Dx: Yes Sepsis: Infection KATHI LINDQUIST MD May 08, 2021 16:10
[2021-05-08] MEDS ORDERED: ASCO100019 PO (16:14)
[2021-05-08] MEDS ORDERED: LACT1CAP19 PO (16:14)
[2021-05-08] MEDS ORDERED: ZINC220C5 PO (16:14)
[2021-05-08] MEDS ORDERED: THIA100T22 PO (16:14)
[2021-05-08] MEDS ORDERED: LISI10TA16 PO (16:14)
[2021-05-08] MEDS ORDERED: ACET325T21 PO (16:14)
[2021-05-08] MEDS ORDERED: PANT40TA77 PO (16:14)
[2021-05-08] MEDS ORDERED: DOCU-109 PO (16:14)
--- NOTE | 2021-05-08 16:15 | DISCH ---
DISCHARGE INSTRUCTIONS Condition on Discharge Condition on Discharge: Stable Activity After Discharge Activity Instructions for Disc: Activity as tolerated Lifting Instructions after Dis: No heavy lifting, No pulling or pushing Driving Instructions after Dis: Do not drive today Diet after Discharge Diet after Discharge: Cardiac Liquid Texture: Thin Liquid Checks after Discharge Checks after discharge: Check blood press - daily Contacting the [facility] after DC Call your doctor for: If your condition worsens Follow-Up Follow up with: SEE YOUR PCP IN 3-5 DAYS Treatment/Equipment after DC Adaptive Equipment Issued: None Discharge Respiratory Equipmen: Oxygen KATHI LINDQUIST MD May 08, 2021 16:15
--- NOTE | 2021-05-08 19:20 | NUR ---
Discharge: Teaching verbal and written. Reviewed Covid, pneumonia, oxygen, ect. Patient verbalized understanding. IV and PICC line removed without complications, catheter tip in-tact. All belongings with patient. Oxygen tabk given to patient provided by [facility]. Patient assisted off of unit via wheelchair.
== END 2021-05-08 19:00 | disposition home or self-care (01) | DRG 871 ==
LOC: ER 17:00 → ED HOLD 20:36 → 1 WEST ICU 04-28 17:50 → 2 SOUTH 05-02 09:19 → 6 SOUTH 05-02 09:24
PROVIDERS: ADMIT Internal Medicine; ATTEND Internal Medicine
PROC: 5A09457 Assistance with Respiratory Ventilation, 24-96 Consecutive Hours, Continuous Positive Airway Pressure (ICD-10-PCS; 2021-04-27)
PROC: XW033E5 Introduction of Remdesivir Anti-infective into Peripheral Vein, Percutaneous Approach, New Technology Group 5 (ICD-10-PCS; principal; 2021-04-28)
PROC: 02HV33Z Insertion of Infusion Device into Superior Vena Cava, Percutaneous Approach (ICD-10-PCS; 2021-04-29)
PROC: 5A09357 Assistance with Respiratory Ventilation, Less than 24 Consecutive Hours, Continuous Positive Airway Pressure (ICD-10-PCS; 2021-04-30)
PROC: 5A09357 Assistance with Respiratory Ventilation, Less than 24 Consecutive Hours, Continuous Positive Airway Pressure (ICD-10-PCS; 2021-05-01)
PROC: 5A09357 Assistance with Respiratory Ventilation, Less than 24 Consecutive Hours, Continuous Positive Airway Pressure (ICD-10-PCS; 2021-05-02)
PROC: 5A09357 Assistance with Respiratory Ventilation, Less than 24 Consecutive Hours, Continuous Positive Airway Pressure (ICD-10-PCS; 2021-05-04)
PROC: 5A09357 Assistance with Respiratory Ventilation, Less than 24 Consecutive Hours, Continuous Positive Airway Pressure (ICD-10-PCS; 2021-05-05)
PROC: 5A09357 Assistance with Respiratory Ventilation, Less than 24 Consecutive Hours, Continuous Positive Airway Pressure (ICD-10-PCS; 2021-05-06)
DX: A41.89 Other specified sepsis (principal); J12.82 Pneumonia due to coronavirus disease 2019; J96.01 Acute respiratory failure with hypoxia; N17.0 Acute kidney failure with tubular necrosis; E43 Unspecified severe protein-calorie malnutrition; U07.1 COVID-19; E87.1 Hypo-osmolality and hyponatremia; Z68.42 Body mass index [BMI] 45.0-49.9, adult; E66.01 Morbid (severe) obesity due to excess calories; E87.6 Hypokalemia; E87.8 Other disorders of electrolyte and fluid balance, not elsewhere classified; I10 Essential (primary) hypertension; T63.441A Toxic effect of venom of bees, accidental (unintentional), initial encounter; Y92.89 Other specified places as the place of occurrence of the external cause; Z79.899 Other long term (current) drug therapy
CPT/HCPCS: 36415; 36569; 36600; 71045; 80048; 80053; 80076; 81001; 82728; 82805; 82962; 83605; 83735; 83880; 84100; 84132; 84145; 84484; 85007; 85025; 86140; 87040; 87426; 87804; 93005; 94618; 94660; 94760; 96361; 96365; 96366; 96368; 96375; C9113; J0360; J0696; J1100; J1650; J2543; J2920; J3480; J3490; J7030; J7050; J7060; U0003; U0005; 97116-GP; 97530-GP; 97535-GO; 99285-25; G0378